=== PATIENT | female | born 1930 | race Two or more races ===

== ENCOUNTER 2016-06-19 13:20 | Inpatient (IN) | payer OTHER ==
[2016-06-19 13:33] VITALS: BMI 32.4
[2016-06-19] MEDS ORDERED: DOPamine 400mg/250ml D5W 250 ML IV ONE (13:36)
--- NOTE | 2016-06-19 13:48 | ED PDOC ---
Arrival/HPI - General Time Seen by Provider: 06/19/16 13:45 Historian: EMS - History of Present Illness Narrative History of Present Illness (Text): 06/19/16 13:45 85 year old female with a past medical history that includes diabetes and hypertension presents to the emergency department via BLS and ALS unresponsive prior to arrival. EMS reports they were originally called for shortness of breath but when they arrived the patient was unresponsive. Prior to arriving in the ED, EMS reports frothy sputum was noted at the mouth and they intubated the patient. Outside the ED in the parking lot, patient went into cardiac arrest and CPR was started. ACLS protocol was continued on arrival. Time/Duration: Prior to Arrival Symptom Onset: Sudden Symptom Course: Worsening Associated Symptoms (Text): None Past Medical History - Provider Review Nursing Documentation Reviewed: Yes - Cardiac Hx Hypertension: Yes - Endocrine/Metabolic Hx Diabetes Mellitus Type 2: Yes - Psychiatric Hx Substance Use: No - Surgical History Hx Cardiac Catheterization: Yes Family/Social History - Physician Review Nursing Documentation Reviewed: Yes Family/Social History: Unknown Family HX Smoking Status: Former Smoker Hx Alcohol Use: No Hx Substance Use: No Allergies/Home Meds Allergies/Adverse Reactions: Allergies No Known Allergies Allergy (Verified 05/31/16 12:55) Home Medications: Home Meds Medication Instructions Recorded Confirmed Carvedilol [Coreg] 25 mg PO Q12 05/31/16 06/19/16 GlipiZIDE [Glucotrol] 10 mg PO Q12 05/31/16 06/19/16 MetFORMIN [glucoPHAGE] 1,000 mg PO Q12 05/31/16 06/19/16 SITagliptin [Januvia] 50 mg PO DAILY 05/31/16 06/19/16 Review of Systems - Review of Systems Systems not reviewed;Unavailable: Intubated Physical Exam - Physical Exam Narrative Physical Exam (Text): Physical exam performed after ROSC Vital Signs Temp Pulse Pulse Resp BP Pulse Ox 06/19/16 14:42 76 16 106/44 L 98 06/19/16 14:29 85 16 88/51 L 99 06/19/16 14:19 99.4 F 06/19/16 14:15 84 16 85/47 L 99 06/19/16 14:00 84 16 87/55 L 99 06/19/16 13:45 84 16 118/78 06/19/16 13:40 76 16 179/80 H 98 06/19/16 13:34 92 H 16 225/92 H 99 06/19/16 13:20 0 L - Systems Exam Head: Present: Atraumatic, Normocephalic Conjunctiva: Present: Normal Mouth: Present: Other (Sputum noted from ET tube) Respiratory/Chest: Present: Rales (Diffuse rales bilaterally) Cardiovascular: Present: Regular Rate and Rhythm, Normal S1, S2. No: Murmurs Abdomen: Present: Other (Decreased bowel sounds). No: Tenderness, Distention, Normal Bowel Sounds Upper Extremity: Present: Cyanosis (Peripheral cyanosis in all 4 extremities) Lower Extremity: Present: Cyanosis (Peripheral cyanosis in all 4 extremities) Skin: Present: Warm, Dry. No: Rashes Medical Decision Making ED Course and Treatment: Impression: 85 year old female with a past medical history that includes diabetes and hypertension presents to the emergency department by BLS and ALS unresponsive prior to arrival. Patient seen immediately on arrival. Differential Diagnosis included but are not limited to: CHF vs COPD Plan: -- EKG, Chest X-ray -- Labs -- Reassess and disposition Prior Visits: Notes and results from previous visits were reviewed. Patient's previous note shows history of diabetes, hypertension, and former smoker. Previous note states patient's family moved from [place] approximately 2 months ago. Patient last seen in the ED on 05/31/15 for flu symptoms, diagnosed with COPD exacerbation, and discharged home with Prednisone and Zofran. Progress Notes: After 2 rounds of Epi with mechanical ventilation, pulses returned and ROSC obtained. Dopamine and Levophed drips were titrated. ET tube was found to be in the right mainstem bronchus on initial chest x-ray. ET tube repositioned. Follow up chest x-ray pending. 12 Lead EKG was done which showed sinus rhythm at 100 BPM and questionable elevations in I and AVL; ST depressions noted in III and AVF, interpreted by me. 06/19/16 13:45 Case discussed with cardiac interventionalist [facility] principal solution specialist Dr. Madison. Discussed findings and he does not recommend immediate cardiac catheterization at this time. 06/19/16 13:54 Case discussed with salesperson meats who states the patient will be taken to the ICU. Pt will get CT of the brain en route to ICU as per salesperson meats. Patient's family is in the ED and aware of patient's condition in the ED. 06/19/16 15:[address] Longoria - Critical Care Critical Care Minutes: 60 minutes - Lab Interpretations Lab Results: 06/19/16 13:30 06/19/16 13:30 Lab Results 06/19/16 14:25: pCO2 44, pO2 45.0 L, HCO3 13.7 L, ABG pH 7.10 L*, ABG Total CO2 15.1 L, ABG O2 Saturation 72.8 L, ABG Base Excess -15.6 L, ABG Potassium 4.5, Sodium 138.0, Chloride 115.0 H, Glucose 405 H*, Lactate 6.9 H*, Mechanical Rate 20, FiO2 100.0, Tidal Volume 400, PEEP 5, Arterial Blood Potassium 4.5 06/19/16 14:16: Urine Color Yellow, Urine Appearance Clear, Urine pH 7.0, Ur Specific [place] 1.025, Urine Protein >=300 H, Urine Glucose (UA) >=1000, Urine Ketones Negative, Urine Blood Small H, Urine Nitrate Negative, Urine Bilirubin Negative, Urine Urobilinogen 0.2, Ur Leukocyte Esterase Negative, Urine RBC 2 - 5, Urine WBC 0 - 2, Ur Epithelial Cells 1 - 3, Amorphous Sediment Small, Urine Bacteria Large 06/19/16 13:30: WBC 23.4 H D, RBC 4.40, Hgb 13.1, Hct 41.1, MCV 93.4, MCH 29.8, MCHC 31.9, RDW 13.7, Plt Count 275, MPV 11.9 H, Gran % 59.4, Lymph % (Auto) 33.3 , [place] % (Auto) 6.1 H, Eos % (Auto) 0.9 L, Baso % (Auto) 0.3, Gran # 13.88 H, Lymph # 7.8 H, [place] # 1.4 H, Eos # 0.2, Baso # 0.06, PT 11.6, INR 1.07, APTT 28.1, pO2 47, VBG pH 6.99 L*, VBG pCO2 79.0 H*, VBG HCO3 19.0 L, VBG Total CO2 21.4 L, VBG O2 Sat (Calc) 69.8 H, VBG Base Excess -13.7 L, VBG Potassium 5.0, Sodium 138.0, Chloride 103.0, Glucose 447 H*, Lactate 8.0 H*, FiO2 21.0, Potassium 5.5 H, Carbon Dioxide 22, Anion Gap 19, BUN 15, Creatinine 1.0, Est GFR ( Amer) > 60, Est GFR (Non-Af Amer) 53, Random Glucose 369 H* D, Calcium 9.2, Phosphorus 6.2 H, Magnesium 1.8, Total Bilirubin 0.7, AST 47 H, ALT 16, Alkaline Phosphatase 107, Lactate Dehydrogenase 655, Total Creatine Kinase 47, Troponin I 0.83 H*, NT-Pro-B Natriuret Pep 4190 H, Total Protein 7.3 , Albumin 3.5, Globulin 3.8, Albumin/Globulin Ratio 0.9 L, Venous Blood Potassium 5.0 - RAD Interpretation Radiology Orders: 06/19/16 13:48 CHEST PORTABLE [RAD] Stat - EKG Interpretation Interpreted by ED Physician: Yes Type: 12 lead EKG - Medication Orders Current Medication Orders: Aspirin (Aspirin) 325 mg PO DAILY MICHAEL Atorvastatin Calcium (Lipitor) 20 mg PO DIN MICHAEL Clopidogrel Bisulfate (Plavix) 75 mg PO DAILY [facility] Norepinephrine Bitartrate 4 mg (/ Dextrose) 254 mls @ 15.24 mls/hr IV .[id number] PRN; Protocol; 4 MCG/MIN PRN Reason: TITRATE PER MD ORDER Vancomycin HCl (Vancomycin 1gm) 250 mls @ 167 mls/hr IVPB STAT STA PRN Reason: Protocol Stop: 06/19/16 16:29 Piperacillin Sod/Tazobactam Sod (Zosyn 3.375 In Ns 100ml) 100 mls @ 200 mls/hr IVPB Q6 MICHAEL PRN Reason: Protocol Stop: 06/20/16 00:29 Vancomycin HCl (Vancomycin 1gm) 250 mls @ 167 mls/hr IVPB Q12 MICHAEL PRN Reason: Protocol Dexmedetomidine HCl (Precedex 4 Mcg/Ml (100 Ml)) 100 mls @ 4.15 mls/hr IV .Q24H PRN; Protocol; 0.2 MCG/KG/HR PRN Reason: Agitation Heparin Sodium/Sodium Chloride (Heparin 45857 Units/250ml 1/2 Normal Saline) 250 mls @ 9.961 mls/hr IV .Q24H MICHAEL; 12 UNITS/KG/HR PRN Reason: Protocol Sodium Bicarbonate (Sodium Bicarbonate (8.4%) 50 Meq Syringe) 50 meq IVP Q5MIN MICHAEL Stop: 06/20/16 15:16 Discontinued Medications Clopidogrel Bisulfate (Plavix) 300 mg PO STAT STA Stop: 06/19/16 15:51 Dopamine HCl/Dextrose (Dopamine 400mg/250ml D5w) Confirm Administered Dose 250 mls @ ud IV .STK-MED ONE Stop: 06/19/16 13:37 Piperacillin Sod/Tazobactam Sod (Zosyn 3.375 In Ns 100ml) 100 mls @ 200 mls/hr IVPB STAT STA PRN Reason: Protocol Stop: 06/19/16 15:31 Sodium Chloride (Sodium Chloride 0.9%) 1,000 mls @ 999 mls/hr IV .Q1H1M STA Stop: 06/19/16 16:07 Norepinephrine Bitartrate (Levophed) Confirm Administered Dose 4 mg IV .STK-MED ONE Stop: 06/19/16 14:22 - Scribe Statement The provider has reviewed the documentation as recorded by the Chelita Ramírez Provider Scribe Attestation: All medical record entries made by the Chelita were at my direction and personally dictated by me. I have reviewed the chart and agree that the record accurately reflects my personal performance of the history, physical exam, medical decision making, and the department course for this patient. I have also personally directed, reviewed, and agree with the discharge instructions and disposition. Disposition/Present on Arrival - Present on Arrival Any Indicators Present on Arrival: No History of DVT/PE: No History of Uncontrolled Diabetes: No Urinary Catheter: No History Surgical Site Infection Following: None - Disposition Have Diagnosis and Disposition been Completed?: Yes Diagnosis: Cardiopulmonary arrest with successful resuscitation, Congestive heart failure Disposition: HOSPITALIZED Disposition Time: 14:30 Patient Plan: Admission, ICU Condition: CRITICAL
[2016-06-19] MEDS ORDERED: DOPamine 400mg/250ml D5W 250 ML IV PRN (14:15)
[2016-06-19 14:19] LABS: ADD MANUAL DIFF? NO
[2016-06-19 14:22] LABS: VENOUS BLOOD GAS BASE EXCESS -13.7 mmol/L (0.0-2.0); VENOUS BLOOD PH 6.99 (7.32-7.43)
[2016-06-19 14:23] LABS: BASO # 0.06 K/mm3 (0.0-2.0); BASO % 0.3 % (0.0-3.0); EOS # 0.2 (0.0-0.7); EOS % 0.9 % (1.5-5.0); GRAN # 13.88 (1.4-6.5); GRAN % 59.4 % (50.0-68.0); HEMATOCRIT 41.1 % (36.0-48.0); LYMPH # 7.8 (1.2-3.4); LYMPH % 33.3 % (22.0-35.0); MEAN CELL VOLUME 93.4 fL (80.0-105.0); MEAN CORPUSCULAR HEMOGLOBIN 29.8 pg (25.0-35.0); MEAN CORPUSCULAR HGB CONC 31.9 g/dl (31.0-37.0); MEAN PLATELET VOLUME 11.9 fl (7.0-11.0); MONO # 1.4 (0.1-0.6); MONO % 6.1 % (1.0-6.0); PLATELET COUNT 275 10^3/uL (120.0-450.0); RED CELL DISTRIBUTION WIDTH 13.7 % (11.5-14.5); WHITE BLOOD COUNT 23.4 10^3/ul (4.5-11.0)
--- NOTE | 2016-06-19 14:27 | RAD ---
HISTORY: intubated COMPARISON: Chest x-ray performed 05/31/16 TECHNIQUE: Chest, one view. FINDINGS: Endotracheal tube terminates within the right mainstem bronchus and should be withdrawn approximately 8 cm. LUNGS: Extensive interstitial prominence predominantly within the upper lobes may reflect edema or infection. Please note that chest x-ray has limited sensitivity for the detection of pulmonary masses. PLEURA: No significant pleural effusion identified. No definite pneumothorax . CARDIOVASCULAR: Mild cardiomegaly. OSSEOUS STRUCTURES: Degenerative changes. Osseous demineralization. VISUALIZED UPPER ABDOMEN: Unremarkable. OTHER FINDINGS: External artifact projects over the right upper lobe. Cardiac monitoring leads present. IMPRESSION: Endotracheal tube terminates within the right mainstem bronchus and should be withdrawn approximately 7 cm. Extensive interstitial prominence predominantly within the upper lobes may reflect edema or infection. Mild cardiomegaly. Findings discussed with Dr. Jones on 06/19/16 at 2:25 p.m.
[2016-06-19 14:29] LABS: URINE BILIRUBIN NEGATIVE (NEGATIVE); URINE BLOOD SMALL (NEGATIVE); URINE GLUCOSE (UA) >=1000 mg/dL (NEGATIVE); URINE KETONE NEGATIVE (NEGATIVE); URINE LEUKOCYTE ESTERASE NEGATIVE Leu/uL (NEGATIVE); URINE PROTEIN >=300 mg/dL (<30 mg/dL); URINE UROBILINOGEN 0.2 E.U./dL (<1 E.U./dL)
[2016-06-19 14:30] LABS: ABG MECHANICAL RATE 20; ARTERIAL BLOOD GAS HCO3 13.7 mmol/L (21-28); ATERIAL BLOOD GAS PEEP 5
[2016-06-19 14:35] LABS: ALB/GLOB RATIO 0.9 (1.1-1.8); ALKALINE PHOSPHATASE 107 U/L (38-133); ALT/SGPT 16 U/L (7-56); AST/SGOT 47 U/L (15-39); BILIRUBIN,TOTAL 0.7 mg/dL (0.2-1.3); BLOOD UREA NITROGEN 15 mg/dL (7-21); CALCIUM 9.2 mg/dL (8.4-10.5); CARBON DIOXIDE 22 mmol/L (21-33); CHLORIDE 100 mmol/L (98-107); GFR AFRICAN-AMERICAN > 60; MAGNESIUM 1.8 mg/dL (1.7-2.2); PHOSPHOROUS 6.2 mg/dL (2.5-4.5); POTASSIUM 5.5 mmol/L (3.6-5.0); SODIUM 135 mmol/L (132-148); TOTAL PROTEIN 7.3 g/dL (5.8-8.3)
[2016-06-19 14:43] LABS: GLUCOSE,RANDOM 369 mg/dL (70-110)
[2016-06-19 14:47] LABS: URINE APPEARANCE CLEAR (CLEAR); URINE COLOR YELLOW (YELLOW)
[2016-06-19 14:50] LABS: INR 1.07 (0.93-1.08); PARTIAL THROMBOPLASTIN TIME 28.1 Seconds (23.7-30.8); TROPONIN I 0.83 ng/mL
[2016-06-19 14:50] LABS: URINE AMORPHOUS SEDIMENT SMALL; URINE BACTERIA LARGE (NEG); URINE WBC 0 - 2 /hpf (0-6)
[2016-06-19] MEDS ORDERED: Vancomycin 1gm in NS 250ml 250 ML IVPB STA (15:00)
[2016-06-19] MEDS ORDERED: Piperacillin/Tazobact 3.375 gm 100 ML IVPB STA (15:02)
[2016-06-19] MEDS ORDERED: Sodium Chloride 0.9% 1,000 ML IV STA (15:07)
[2016-06-19] MEDS ORDERED: Sodium Bicarbonate (8.4%) 50 Meq Syringe IVP SCH (15:15)
--- NOTE | 2016-06-19 15:26 | CT ---
PROCEDURE: CT HEAD WITHOUT CONTRAST. HISTORY: AMS COMPARISON: None available. TECHNIQUE: Axial computed tomography images were obtained through the head/brain without intravenous contrast. Radiation dose: Total exam DLP = 677.45 MGy-cm. FINDINGS: Extensive streak and motion artifact severely degrades study. HEMORRHAGE: No obvious intracranial hemorrhage. BRAIN: Diffuse atrophy with prominence of the ventricles and sulci noted. No mass effect or edema. Moderate scattered periventricular and subcortical white matter hypodensities, which are nonspecific, but often seen with chronic microvascular ischemic disease. VENTRICLES: No hydrocephalus. CALVARIUM: Unremarkable. PARANASAL SINUSES: Opacification of the maxillary sinuses. Mucosal thickening of the ethmoid air cells. Extensive opacification of the right sphenoid sinus. Mild mucosal thickening of the left sphenoid sinus. MASTOID AIR CELLS: Unremarkable as visualized. No inflammatory changes. OTHER FINDINGS: None. IMPRESSION: Extensive streak and motion artifact severely degrades study. Recommend repeat study when clinically feasible. Generalized atrophy. Moderate nonspecific white matter changes. Opacification of the maxillary sinuses. Mucosal thickening of the ethmoid air cells. Extensive opacification of the right sphenoid sinus. Mild mucosal thickening of the left sphenoid sinus. Correlate for sinusitis. Discussed with JONATHON Kamara on 06/19/16 at 3:23 p.m..
--- NOTE | 2016-06-19 15:53 | CP.PCM.HP ---
History of Present Illness - History of Present Illness History of Present Illness: HPI: Pt is an 85 year old female with a PMHx of diabetes and HTN who presented to the ED via EMS unresponsive and intubated. As per ED physician, EMS was called for shortness of breath. Pt was unresponsive upon EMS arrival, and pt went into cardiac arrest shortly after in the field. According to ICU resident, pt has had bronchitis over the past week and was being treated with azithromycin. According to the family who was previously at bedside, pt had a seizure prior to EMS being called. When EMS arrived, pt had frothy sputum coming from the mouth. Detailed history and ROS unattainable due to pt's clinical condition. PMD: Dr. Wheeler PMHx: HTN, Diabetes (as per ED note) Home medications: Metformin, glipizide, coreg, januvia (as per MAR) Allergies: NKDA (as per previous note) Past Surgical Hx: unable to be obtain Social Hx: former smoker (as per previous note) Fam Hx: unable to be obtained Present on Admission - Present on Admission Any Indicators Present on Admission: No Review of Systems - Review of Systems Systems not reviewed;Unavailable: Intubated Past Patient History - Past Social History Smoking Status: Former Smoker - CARDIAC Hx Hypertension: Yes - ENDOCRINE/METABOLIC Hx Diabetes Mellitus Type 2: Yes - PSYCHIATRIC Hx Substance Use: No - SURGICAL HISTORY Hx Cardiac Catheterization: Yes - ANESTHESIA Hx Anesthesia: Yes Hx Anesthesia Reactions: No Hx Malignant Hyperthermia: No Meds Allergies/Adverse Reactions: Allergies Allergy/AdvReac Type Severity Reaction Status Date / Time No Known Allergies Allergy Verified 05/31/16 12:55 Physical Exam - Constitutional Appears: Toxic - Head Exam Head Exam: ATRAUMATIC, NORMOCEPHALIC - Eye Exam Eye Exam: absent: EOMI Pupil Exam: Miosis - ENT Exam ENT Exam: Mucous Membranes Dry. absent: Mucous Membranes Moist - Respiratory Exam Respiratory Exam: Decreased Breath Sounds. absent: Rales, Rhonchi, Wheezes - Cardiovascular Exam Cardiovascular Exam: +S1, +S2 Additional comments: distant heart sounds - GI/Abdominal Exam GI & Abdominal Exam: Soft - Extremities Exam Extremities exam: Positive for: pedal edema Additional comments: Trace pedal edema - Skin Skin Exam: Normal Color Results - Vital Signs Recent Vital Signs: Last Vital Signs Temp 99.4 F 06/19/16 14:19 Pulse 76 06/19/16 14:42 Resp 16 06/19/16 14:42 BP 106/44 L 06/19/16 14:42 Pulse Ox 98 06/19/16 14:42 - Labs Result Diagrams: 06/19/16 13:30 06/19/16 13:30 Assessment & Plan - Assessment and Plan (Free Text) Assessment: Hypoxemic Respiratory Failure with metabolic acidosis s/p cardiac arrest: Initial ABG: PH: 7.10; Lactate 6.9, P02 - 45, Bicarb 13.7 Precedex Sedation Intubated NaHCO3 50 meq IVP q5 min Norepinephrine drip CXR-extensive interstitial prominence predominantly within the upper lobes reflects edema or infection (please see full report) Lower extremity venous duplex-negative for DVTs Pancultures pending Repeat ABGs Sepsis: Lactate 6.9 T - 97.5 WBC - 23.4 Pancultures pending CXR-extensive interstitial prominence predominantly within the upper lobes reflects edema or infection (please see full report) Zosyn 3.375 gm IV q8h Vanomycin 1 gm IV q12h NSTEMI: EKG - inferolateral ST depressions (please see full report) Troponin x 1 - 0.83 Pro-BNP -4190 Serial troponins pending Pmo Analyst, Dr. Gibson, consulted. Help appreciated. Heparin drip Head CT - generalized atrophy; nonspecific white matter changes; limited study ( please see full report_ Neurologist, Dr. Shania Guerra consulted. Help appreciated. Aspirin 81 mg po qd Plavix 75 mg po qd Prophylactic Measures: GI: Protonix 40 mg IV qd DVT: Heparin drip
--- NOTE | 2016-06-19 16:07 | RAD ---
HISTORY: ett COMPARISON: Chest x-ray performed earlier the same day. TECHNIQUE: Chest, one view. FINDINGS: The endotracheal tube terminates approximately 2.5 cm above the jake. LUNGS: Prominent interstitial markings predominantly within the upper lobes compatible with edema or infection. More confluent opacity noted at the right lung apex. Please note that chest x-ray has limited sensitivity for the detection of pulmonary masses. PLEURA: No significant pleural effusion identified. No definite pneumothorax . CARDIOVASCULAR: Heart size appears top normal. OSSEOUS STRUCTURES: No acute osseous abnormality identified. VISUALIZED UPPER ABDOMEN: Unremarkable. OTHER FINDINGS: None. IMPRESSION: Endotracheal tube terminates approximately 2.5 cm above the jake. Prominent interstitial markings predominantly within the upper lobes compatible with edema or infection. More confluent opacity noted at the right lung apex.
[2016-06-19] MEDS: Dexmedetomidine HCl 4mcg/ml 100 ML IV PRN ×2 (16:10→21:49)
--- NOTE | 2016-06-19 16:14 | RAD ---
HISTORY: NGT COMPARISON: Chest x-rays performed earlier the same day. TECHNIQUE: Chest, one view. FINDINGS: The endotracheal tube terminates approximately 2.6 cm above the jake. Nasogastric tube extends expected location of the stomach. LUNGS: Prominent interstitial markings predominantly within the upper lobes compatible with edema or infection. Biapical pleural thickening. Please note that chest x-ray has limited sensitivity for the detection of pulmonary masses. PLEURA: Trace bilateral pleural effusions. No definite pneumothorax . CARDIOVASCULAR: The cardiomediastinal silhouette appears within normal limits of size. OSSEOUS STRUCTURES: No acute osseous abnormality identified. VISUALIZED UPPER ABDOMEN: Unremarkable. OTHER FINDINGS: None. IMPRESSION: The endotracheal tube terminates approximately 2.6 cm above the jake. Nasogastric tube extends expected location of the stomach. Prominent interstitial markings predominantly within the upper lobes compatible with edema or infection. Biapical pleural thickening. Trace bilateral pleural effusions.
[2016-06-19] MEDS: Heparin25000 units/250ml 1/2NS 250 ML IV SCH (16:22)
[2016-06-19 16:57] LABS: ABG MECHANICAL RATE 28; ARTERIAL BLOOD GAS HCO3 20.6 mmol/L (21-28); ARTERIAL BLOOD GAS PH 7.31 (7.35-7.45); ATERIAL BLOOD GAS PEEP 5
[2016-06-19] MEDS ORDERED: levETIRAcetam 1,000 MG in Sodium Chloride 0.9% 100 ML IV ONE (17:07)
[2016-06-19] MEDS: Piperacillin/Tazobact 3.375 gm 100 ML IVPB SCH (17:11)
--- NOTE | 2016-06-19 17:19 | CON ---
DATE: 06/19/2016 The patient is an 85-year-old female who was brought in by EMS after the patient's family found her s uddenly having shortness of breath that caused her to clench over, start frothing at her mouth and serge bah witnessed seizures x 2. EMS was called. Upon arrival, the patient was seen to be unresponsive, bu t a pulse was present. The patient at the time was taken to the ambulance and upon arrival to the [facility], the patient had loss of pulse and was emergently intubated and chest compressions were started. In the Emergency Room, the patient had chest compressions, 2 rounds of epinephrine and returned to [facility] with roughly 20 minutes in total time outside hospital and inside. Upon seeing the patient in the Emergency Room, she is seen to be intubated on 100%, hypotensive, but is overbreathin g the ventilator and does have some movement of all her extremities. PAST MEDICAL HISTORY: Diabetes, recent bronchitis, high blood pressure. PAST SURGICAL HISTORY: Amputation of the toe, CAD with stent in the past. SOCIAL HISTORY: Nonsmoker, no alcohol, no IV drug abuse. Previous smoker over 55 years ago. FAMILY HISTORY: Diabetes, high blood pressure. PHYSICAL EXAMINATION: VITAL SIGNS: Temp 98.8, heart rate 76, blood pressure 106/44, respiratory rate is 16-24, 98% on 100% FiO2. HEENT: The pupils are +2 bilaterally. Extraocular eye movements cannot be assessed. NECK: Large, ET tube size [address] No JVD. LUNGS: Have scattered rhonchi, decreased breath sounds in bilateral bases. CARDIOVASCULAR: S1, S2 is heard without any heaves, murmurs, or thrills. ABDOMEN: Obese, soft, tender without any rebound or guarding. EXTREMITIES: Show no pedal edema. SKIN: Shows no rashes. NEUROLOGIC: The patient is currently not following any commands, having purposeless movements. LABORATORY RESULTS: White blood cell count 23.4, hemoglobin of 13, platelet count of 275. Sodium 13 5, potassium 5.5, chloride 100, bicarb 22, BUN 15, creatinine is 1, glucose 369. Troponin is 0.83. ProBNP 4190. Arterial blood gas shows a pH of 7.10, pO2 of 45, bicarb of 13.7. Urinalysis is negati ve. INR 1.07. Chest x-ray, images reviewed by me, does show the ET tube in the right mainstem, needs to be drawn ba ck 4-[address], images reviewed by me, does not show any overt signs of intracerebral hemorrhage. Awaiting for final read. ASSESSMENT AND PLAN: The patient is an 85-year-old female who presents status post cardiac arrest, m etabolic acidosis, hyperglycemia, leukocytosis. At this time, it is unclear if the patient's arrest was secondary to pulmonary or cardiac complaints. The patient did have a pH below 7 prior to arrival and intubation, for which the patient could have suffered seizures from metabolic causes. Two witnessed seizures were seen at home that have subside d since coming in here. At this time, the patient is currently not seizing and the pH has improved. We will get a neurology consult and the patient also can be started on empiric Keppra for seizure pr ophylaxis. Vent-dependent respiratory failure. At this time, the patient is intubated. Right mainstem intubati on was seen on chest x-ray. The tube has been drawn back 4 cm. Repeat x-ray is pending. Repeat blo od gas to be done in the hopes that the patient's pO2 is greater than 60. We will appropriately adju st FiO2. Low tidal volume strategy, [employer] protocol. Leukocytosis 23,000, unknown cause. The chest x-ray does show bilateral infiltrates suggestive for p ulmonary edema, but cannot rule out infiltrate as well. Sputum culture, urine culture, blood culture s were sent. The patient will be empirically started on vancomycin and Zosyn, first dose now. The patient is noted to have EKG changes, questionable for lateral lead ischemia in the setting of re cent chest compressions. Cardiology has been consulted. The patient, if nothing else is found, can be started on a possible heparin drip. Also be started on aspirin, Plavix, beta blockers once stabil ized from blood pressure. The patient is also seen to be in shock right now, presumed cardiogenic sh ock, but cannot rule out distributive septic shock at this time. We will titrate the Levophed to mya p the patient's mean arterial pressure greater than 65. The patient will also be started on normal s marilyn IV fluid to help load her right heart and we will follow the inferior vena cava collapsibility. All electrolytes to be repleted. At this time, the patient should be kept normothermic or hypothermia protocol unless the patient does have some discernible improvement in her mental status when she arrives to the ICU after the head CT is done. That to be determined. The patient will most likely need an EEG in the next 24-48 hours, neurology consult, cardiology consu lt, 2D echo to be done stat, troponins to be trended. TOTAL CRITICAL CARE TIME: 72 minutes. Asiya Guerra M.D. cc: [id number] TT: 06/19/2016 17:18:14 Confirmation # [id number] Dictation # [id number]
[2016-06-19 18:19] LABS: VENOUS BLOOD PH 7.29 (7.32-7.43)
--- NOTE | 2016-06-19 19:57 | CON ---
DATE: 06/19/2016 REASON FOR CONSULTATION: Cardiac arrest. HISTORY OF PRESENT ILLNESS: The patient is an 85-year-old female originally from [facility], who has a history of coronary artery disease, underwent coronary stenting many years ago. She arr ived from [place] in May to the [facility]. She has chronic obstructive lung disease and uses nebulizer therapy at home. The patient was noticed by the family to be short of breath. When they attempted to get her nebulizer therapy, the granddaughter noticed a yellowish foam around her mo uth and EMS was activated. The patient was brought to the Emergency Room and the patient developed r espiratory arrest and required intubation and mechanical ventilation. Also, the patient was in circu latory failure and required multiple doses of intravenous epinephrine infusion. No defibrillation wa s given. The first EKG was consistent with sinus rhythm and a subtle lateral ST elevation; however, after interventional cardiology evaluation, the patient was not considered a candidate for acute inte rvention. Subsequent EKG revealed junctional rhythm with significant lateral ST segment depression. There was no obtainable chest pain history from the family. SOCIAL HISTORY: The patient is a nonsmoker. CURRENT MEDICATIONS: Intravenous heparin infusion in a therapeutic regimen for acute coronary syndro me, aspirin 325 mg once a day, Keppra 500 mg intravenously q.12 hours, Levophed infusion, Plavix 75 m g once a day, sodium bicarbonate infusion, vancomycin 1 gram intravenous twice a day and Zosyn 3.375 grams intravenously q.6 hours. PHYSICAL EXAMINATION: GENERAL: The patient is an elderly female who is sedated on the ventilator. VITAL SIGNS: Blood pressure 109/31, heart rate 61, temperature 97.7, respiration 33. HEENT: Normocephalic. NECK: No JVD. CHEST: Bilateral coarse crepitations. HEART: S1, S2 regular. ABDOMEN: Soft. EXTREMITIES: Has 1+ right leg edema. LABORATORY DATA: CBC: WBC 23.4, hemoglobin 13.1, hematocrit 41.1, platelet count 275,000. SMA-7: Sodium 135, potassium 5.5, chloride 100, CO2 of 22, glucose 369, BUN 15, creatinine 1.0. Troponin 0. 83. ProBNP is 4190. PT and PTT are within normal limits. Head CT scan revealed extensive streak an d motion artifact, severely degraded study. Recommended repeat study when clinically feasible. Gene ralized atrophy and moderate nonspecific white matter changes. Chest x-ray revealed right upper and middle lobe infiltrate with left lower lobe infiltrate, CHF cannot be completely excluded. Venous Do ppler of lower extremity was performed, but the report is still pending. ASSESSMENT: 1. Status post cardiorespiratory arrest. 2. Lateral ischemia, consider non-ST elevation myocardial infarction. 3. Rule out bilateral pneumonia. 4. Chronic obstructive lung disease. 5. Uncontrolled diabetes mellitus. 6. Hypotension on presentation. RECOMMENDATIONS: The case was discussed with the rn residential, Dr. Guerra. The patient will be maintai jennifer on aspirin and intravenous heparin in a therapeutic regimen for acute coronary syndrome. Restart Lipitor at 20 mg once a day and Plavix 75 mg once a day as well as intravenous vancomycin and intrav enous Zosyn. I will obtain a bedside echocardiograph study. Ric Gibson MD cc: [id number] TT: 06/19/2016 19:56:01 Confirmation # [id number] Dictation # [id number]
[2016-06-19] MEDS: levETIRAcetam 500mg IVPB 100 ML IV SCH (21:20)
[2016-06-19 21:48] LABS: VENOUS BLOOD GAS BASE EXCESS -4.2 mmol/L (0.0-2.0); VENOUS BLOOD PH 7.29 (7.32-7.43)
[2016-06-19] MEDS: Vancomycin 1gm in NS 250ml 250 ML IVPB SCH (21:50)
[2016-06-19] MEDS ORDERED: Sodium Bicarbonate (8.4%) 50 Meq Syringe IVP ONE (22:01)
[2016-06-19] MEDS ORDERED: Insulin Regular 1 UNITS/0.01 ML ML SC ONE (22:04)
[2016-06-20] MEDS: Piperacillin/Tazobact 3.375 gm 100 ML IVPB SCH (00:30)
[2016-06-20] MEDS: Dexmedetomidine HCl 4mcg/ml 100 ML IV PRN ×5 (02:16→21:19)
[2016-06-20 05:54] LABS: ADD MANUAL DIFF? NO
[2016-06-20 06:11] LABS: BASO # 0.02 K/mm3 (0.0-2.0); BASO % 0.1 % (0.0-3.0); GRAN # 15.61 (1.4-6.5); GRAN % 88.2 % (50.0-68.0); HEMATOCRIT 33.9 % (36.0-48.0); LYMPH # 1.2 (1.2-3.4); LYMPH % 6.7 % (22.0-35.0); MEAN CELL VOLUME 88.5 fL (80.0-105.0); MEAN CORPUSCULAR HEMOGLOBIN 29.5 pg (25.0-35.0); MEAN CORPUSCULAR HGB CONC 33.3 g/dl (31.0-37.0); MEAN PLATELET VOLUME 11.9 fl (7.0-11.0); MONO # 0.9 (0.1-0.6); PLATELET COUNT 183 10^3/uL (120.0-450.0); RED CELL DISTRIBUTION WIDTH 13.5 % (11.5-14.5); WHITE BLOOD COUNT 17.7 10^3/ul (4.5-11.0)
[2016-06-20 06:26] LABS: ALB/GLOB RATIO 0.9 (1.1-1.8); BILIRUBIN,TOTAL 0.9 mg/dL (0.2-1.3); CALCIUM 7.6 mg/dL (8.4-10.5); MAGNESIUM 1.3 mg/dL (1.7-2.2); PHOSPHOROUS 2.4 mg/dL (2.5-4.5); POTASSIUM 3.9 mmol/L (3.6-5.0); TOTAL PROTEIN 5.4 g/dL (5.8-8.3)
[2016-06-20] MEDS ORDERED: Insulin Lispro (humaLOG) LOW Coverage SC SCH (07:30)
[2016-06-20] MEDS: levETIRAcetam 500mg IVPB 100 ML IV SCH ×2 (09:39→21:35)
[2016-06-20] MEDS: Vancomycin 1gm in NS 250ml 250 ML IVPB SCH (09:42)
--- NOTE | 2016-06-20 09:46 | CARD ---
APPROVED REPORT EKG Measurement Heart [id number] <Conclusion> Normal sinus rhythm Nonspecific intraventricular block ST elevation, consider lateral injury or acute infarct ACUTE [place] STTW changes c/w ischemia IVCD and ST changes are new.
--- NOTE | 2016-06-20 09:47 | CARD ---
APPROVED REPORT EKG Measurement Heart [id number] <Conclusion> Probably AF, new IVCD STTW changes c/w ischemia Prolonged QTc
[2016-06-20 09:49] LABS: ABG MECHANICAL RATE 28; ARTERIAL BLOOD GAS HCO3 20.4 mmol/L (21-28); ARTERIAL BLOOD GAS PH 7.47 (7.35-7.45); ATERIAL BLOOD GAS PEEP 8
[2016-06-20] MEDS ORDERED: Cefepime IV 2 gm in NS 100 ML IVPB SCH (10:30)
--- NOTE | 2016-06-20 11:02 | CP.CCUPN ---
<AleksandarAnastacio - Last Filed: 06/20/16 11:13> CCU Subjective - Physician Review Subjective (Free Text): 06/20/16 11:37 Pt intubated and sedated. Off pressors. HR 30-70s. Precedex decreased. 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 Objective - Vital Signs / Intake & Output Vital Signs (Last 4 hours): Vital Signs Pulse 06/20/16 07:50 48 L Intake and Output (Last 8hrs): Intake & Output 06/19/16 06/20/16 06/20/16 22:59 06:59 14:59 Intake Total 1472 841 Output Total 1000 300 Balance 472 541 Weight 183 lb 186 lb 2 oz Intake: IV 391 Heparin 106 Precedex 210 Levophed 75 Other 1472 450 Output: Urine 1000 300 Urethral (Menezes) 1000 300 Other: Voiding Method Indwelling Catheter # Bowel Movements 0 0 - Physical Exam Head: Positive for: Atraumatic, Normocephalic Conjunctiva: Positive for: Normal Mouth: Positive for: Other ( ET tube) Respiratory/Chest: Positive for: Respiratory Distress, Rales (Diffuse rales bilaterally) Cardiovascular: Positive for: Regular Rate and Rhythm, Normal S1, S2. Negative for: Murmurs Abdomen: Negative for: Tenderness, Distention, Normal Bowel Sounds Skin: Positive for: Warm, Dry. Negative for: Rashes Psychiatric: Negative for: Alert, Oriented x 3 - Medications Active Medications: Active Medications Generic Name Dose Route Start Last Admin Trade Name Freq PRN Reason Stop Dose Admin Aspirin 325 mg 06/19/16 16:00 06/20/16 09:10 Aspirin PO 325 mg DAILY MICHAEL Administration Atorvastatin Calcium 20 mg 06/19/16 17:00 06/19/16 16:14 Lipitor PO 20 mg DIN MICHAEL Administration Clopidogrel Bisulfate 75 mg 06/20/16 10:00 06/20/16 09:00 Plavix PO 75 mg DAILY MICHAEL Administration Norepinephrine Bitartrate 4 mg 254 mls @ 15.24 mls/hr 06/19/16 14:15 06/19/16 20:30 / Dextrose IV 15.24 mls/hr .[id number] PRN Administration TITRATE PER MD ORDER Protocol 4 MCG/MIN Dexmedetomidine HCl 100 mls @ 4.15 mls/hr 06/19/16 15:08 06/20/16 09:56 Precedex 4 Mcg/Ml (100 Ml) IV 4.15 mls/hr .Q24H PRN Administration Agitation Protocol 0.2 MCG/KG/HR Heparin Sodium/Sodium Chloride 250 mls @ 9.961 mls/hr 06/19/16 15:45 06/20/16 05:45 Heparin 47716 Units/250ml 1/2 Normal Saline IV 9.63 units/kg/hr .Q24H MICHAEL Titration Protocol 12 UNITS/KG/HR Levetiracetam 100 mls @ 400 mls/hr 06/19/16 22:00 06/20/16 09:39 Keppra 500mg Ivpb IV 400 mls/hr Q12 MICHAEL Administration Cefepime HCl 100 mls @ 100 mls/hr 06/20/16 10:30 Maxipime 2gm IVPB 06/25/16 10:31 Q12 MICHAEL Protocol Doxycycline Hyclate 100 mg/ 100 mls @ 100 mls/hr 06/20/16 10:30 Sodium Chloride IVPB Q12 MICHAEL Protocol Insulin Human Regular 0 units 06/20/16 11:30 Humulin R Med SC ACHS MICHAEL Protocol Pantoprazole Sodium 40 mg 06/20/16 10:00 06/20/16 09:42 Protonix Inj IVP 40 mg DAILY MICHAEL Administration Sodium Bicarbonate 50 meq 06/19/16 15:15 06/19/16 16:09 Sodium Bicarbonate (8.4%) 50 Meq Syringe IVP 06/20/16 15:16 50 meq Q5MIN MICHAEL Administration - Patient Studies Lab Studies: Microbiology Studies 06/19/16 17:00 Gram Stain - Final Sputum Lab Studies 06/20/16 06/20/16 06/20/16 Range/Units 09:43 05:45 05:26 WBC 17.7 H D (4.5-11.0) 10^3/ul RBC 3.83 (3.5-6.1) 10^6/uL Hgb 11.3 L (12.0-16.0) gm/dL Hct 33.9 L (36.0-48.0) % MCV 88.5 (80.0-105.0) fL MCH 29.5 (25.0-35.0) pg MCHC 33.3 (31.0-37.0) g/dl RDW 13.5 (11.5-14.5) % Plt Count 183 (120.0-450.0) 10^3/uL MPV 11.9 H (7.0-11.0) fl Gran % 88.2 H (50.0-68.0) % Lymph % (Auto) 6.7 L (22.0-35.0) % [place] % (Auto) 5.0 (1.0-6.0) % Eos % (Auto) 0.0 L (1.5-5.0) % Baso % (Auto) 0.1 (0.0-3.0) % Gran # 15.61 H (1.4-6.5) Lymph # 1.2 (1.2-3.4) [place] # 0.9 H (0.1-0.6) Eos # 0.0 (0.0-0.7) Baso # 0.02 (0.0-2.0) K/mm3 APTT 88.5 H* (23.7-30.8) Seconds pCO2 28 L (35-45) mm/Hg pO2 66.0 L (80-100) mm/Hg HCO3 20.4 L (21-28) mmol/L ABG pH 7.47 H (7.35-7.45) ABG Total CO2 21.3 L (22-28) mmol.L ABG O2 Saturation 96.5 (95-98) % ABG Base Excess -2.0 (-2.0-3.0) mmol/L ABG Potassium 4.2 (3.6-5.2) mmol/L VBG pH (7.32-7.43) VBG pCO2 (40-60) VBG HCO3 (21-28) mmol/l VBG Total CO2 (22-28) mmol.L VBG O2 Sat (Calc) (40-65) % VBG Base Excess (0.0-2.0) mmol/L VBG Potassium (3.6-5.2) mmol/L Sodium 141.0 142 (132-148) mmol/L Chloride 115.0 H 107 (98-107) mmol/L Glucose 388 H (65-105) mg/dl Lactate 2.6 H (0.7-2.1) mmol/L Mechanical Rate 28 FiO2 100.0 % Tidal Volume 400 PEEP 8 Potassium 3.9 (3.6-5.0) mmol/L Carbon Dioxide 24 (21-33) mmol/L Anion Gap 15 (10-20) BUN 25 H (7-21) mg/dL Creatinine 1.4 (0.5-1.4) mg/dL Est GFR ( Amer) 43 Est GFR (Non-Af Amer) 36 POC Glucose (mg/dL) 423 H* (65-110) mg/dL Random Glucose 398 H* (70-110) mg/dL Calcium 7.6 L (8.4-10.5) mg/dL Phosphorus 2.4 L (2.5-4.5) mg/dL Magnesium 1.3 L (1.7-2.2) mg/dL Total Bilirubin 0.9 (0.2-1.3) mg/dL AST 365 H (15-39) U/L ALT 106 H (7-56) U/L Alkaline Phosphatase 108 (38-133) U/L Troponin I ng/mL Total Protein 5.4 L (5.8-8.3) g/dL Albumin 2.6 L (3.0-4.8) g/dL Globulin 2.8 gm/dL Albumin/Globulin Ratio 0.9 L (1.1-1.8) Arterial Blood Potassium 4.2 (3.6-5.2) mmol/L Venous Blood Potassium (3.6-5.2) mmol/L 06/20/16 06/19/16 06/19/16 Range/Units 01:30 23:56 22:00 WBC (4.5-11.0) 10^3/ul RBC (3.5-6.1) 10^6/uL Hgb (12.0-16.0) gm/dL Hct (36.0-48.0) % MCV (80.0-105.0) fL MCH (25.0-35.0) pg MCHC (31.0-37.0) g/dl RDW (11.5-14.5) % Plt Count (120.0-450.0) 10^3/uL MPV (7.0-11.0) fl Gran % (50.0-68.0) % Lymph % (Auto) (22.0-35.0) % [place] % (Auto) (1.0-6.0) % Eos % (Auto) (1.5-5.0) % Baso % (Auto) (0.0-3.0) % Gran # (1.4-6.5) Lymph # (1.2-3.4) [place] # (0.1-0.6) Eos # (0.0-0.7) Baso # (0.0-2.0) K/mm3 APTT 55.5 H (23.7-30.8) Seconds pCO2 (35-45) mm/Hg pO2 (80-100) mm/Hg HCO3 (21-28) mmol/L ABG pH (7.35-7.45) ABG Total CO2 (22-28) mmol.L ABG O2 Saturation (95-98) % ABG Base Excess (-2.0-3.0) mmol/L ABG Potassium (3.6-5.2) mmol/L VBG pH (7.32-7.43) VBG pCO2 (40-60) VBG HCO3 (21-28) mmol/l VBG Total CO2 (22-28) mmol.L VBG O2 Sat (Calc) (40-65) % VBG Base Excess (0.0-2.0) mmol/L VBG Potassium (3.6-5.2) mmol/L Sodium (132-148) mmol/L Chloride (98-107) mmol/L Glucose (65-105) mg/dl Lactate (0.7-2.1) mmol/L Mechanical Rate FiO2 % Tidal Volume PEEP Potassium (3.6-5.0) mmol/L Carbon Dioxide (21-33) mmol/L Anion Gap (10-20) BUN (7-21) mg/dL Creatinine (0.5-1.4) mg/dL Est GFR ( Amer) Est GFR (Non-Af Amer) POC Glucose (mg/dL) 354 H (65-110) mg/dL Random Glucose (70-110) mg/dL Calcium (8.4-10.5) mg/dL Phosphorus (2.5-4.5) mg/dL Magnesium (1.7-2.2) mg/dL Total Bilirubin (0.2-1.3) mg/dL AST (15-39) U/L ALT (7-56) U/L Alkaline Phosphatase (38-133) U/L Troponin I 47.10 H* D ng/mL Total Protein (5.8-8.3) g/dL Albumin (3.0-4.8) g/dL Globulin gm/dL Albumin/Globulin Ratio (1.1-1.8) Arterial Blood Potassium (3.6-5.2) mmol/L Venous Blood Potassium (3.6-5.2) mmol/L 06/19/16 06/19/16 06/19/16 Range/Units 21:30 18:00 17:35 WBC (4.5-11.0) 10^3/ul RBC (3.5-6.1) 10^6/uL Hgb (12.0-16.0) gm/dL Hct (36.0-48.0) % MCV (80.0-105.0) fL MCH (25.0-35.0) pg MCHC (31.0-37.0) g/dl RDW (11.5-14.5) % Plt Count (120.0-450.0) 10^3/uL MPV (7.0-11.0) fl Gran % (50.0-68.0) % Lymph % (Auto) (22.0-35.0) % [place] % (Auto) (1.0-6.0) % Eos % (Auto) (1.5-5.0) % Baso % (Auto) (0.0-3.0) % Gran # (1.4-6.5) Lymph # (1.2-3.4) [place] # (0.1-0.6) Eos # (0.0-0.7) Baso # (0.0-2.0) K/mm3 APTT (23.7-30.8) Seconds pCO2 (35-45) mm/Hg pO2 25 L 28 L (80-100) mm/Hg HCO3 (21-28) mmol/L ABG pH (7.35-7.45) ABG Total CO2 (22-28) mmol.L ABG O2 Saturation (95-98) % ABG Base Excess (-2.0-3.0) mmol/L ABG Potassium (3.6-5.2) mmol/L VBG pH 7.29 L 7.29 L (7.32-7.43) VBG pCO2 47.0 40.0 (40-60) VBG HCO3 22.6 19.2 L (21-28) mmol/l VBG Total CO2 24.0 20.4 L (22-28) mmol.L VBG O2 Sat (Calc) 44.5 53.6 (40-65) % VBG Base Excess -4.2 L -7.0 L (0.0-2.0) mmol/L VBG Potassium 4.6 4.0 (3.6-5.2) mmol/L Sodium 141.0 143.0 (132-148) mmol/L Chloride 107.0 114.0 H (98-107) mmol/L Glucose 443 H* 391 H (65-105) mg/dl Lactate 3.8 H 3.6 H (0.7-2.1) mmol/L Mechanical Rate FiO2 21.0 21.0 % Tidal Volume PEEP Potassium (3.6-5.0) mmol/L Carbon Dioxide (21-33) mmol/L Anion Gap (10-20) BUN (7-21) mg/dL Creatinine (0.5-1.4) mg/dL Est GFR ( Amer) Est GFR (Non-Af Amer) POC Glucose (mg/dL) (65-110) mg/dL Random Glucose (70-110) mg/dL Calcium (8.4-10.5) mg/dL Phosphorus (2.5-4.5) mg/dL Magnesium (1.7-2.2) mg/dL Total Bilirubin (0.2-1.3) mg/dL AST (15-39) U/L ALT (7-56) U/L Alkaline Phosphatase (38-133) U/L Troponin I 5.06 H* D ng/mL Total Protein (5.8-8.3) g/dL Albumin (3.0-4.8) g/dL Globulin gm/dL Albumin/Globulin Ratio (1.1-1.8) Arterial Blood Potassium (3.6-5.2) mmol/L Venous Blood Potassium 4.6 4.0 (3.6-5.2) mmol/L 06/19/16 Range/Units 16:50 WBC (4.5-11.0) 10^3/ul RBC (3.5-6.1) 10^6/uL Hgb (12.0-16.0) gm/dL Hct (36.0-48.0) % MCV (80.0-105.0) fL MCH (25.0-35.0) pg MCHC (31.0-37.0) g/dl RDW (11.5-14.5) % Plt Count (120.0-450.0) 10^3/uL MPV (7.0-11.0) fl Gran % (50.0-68.0) % Lymph % (Auto) (22.0-35.0) % [place] % (Auto) (1.0-6.0) % Eos % (Auto) (1.5-5.0) % Baso % (Auto) (0.0-3.0) % Gran # (1.4-6.5) Lymph # (1.2-3.4) [place] # (0.1-0.6) Eos # (0.0-0.7) Baso # (0.0-2.0) K/mm3 APTT (23.7-30.8) Seconds pCO2 41 (35-45) mm/Hg pO2 58.0 L (80-100) mm/Hg HCO3 20.6 L (21-28) mmol/L ABG pH 7.31 L (7.35-7.45) ABG Total CO2 21.9 L (22-28) mmol.L ABG O2 Saturation 91.3 L (95-98) % ABG Base Excess -5.4 L (-2.0-3.0) mmol/L ABG Potassium 4.2 (3.6-5.2) mmol/L VBG pH (7.32-7.43) VBG pCO2 (40-60) VBG HCO3 (21-28) mmol/l VBG Total CO2 (22-28) mmol.L VBG O2 Sat (Calc) (40-65) % VBG Base Excess (0.0-2.0) mmol/L VBG Potassium (3.6-5.2) mmol/L Sodium 141.0 (132-148) mmol/L Chloride 115.0 H (98-107) mmol/L Glucose 398 H (65-105) mg/dl Lactate 2.9 H (0.7-2.1) mmol/L Mechanical Rate 28 FiO2 100.0 % Tidal Volume 400 PEEP 5 Potassium (3.6-5.0) mmol/L Carbon Dioxide (21-33) mmol/L Anion Gap (10-20) BUN (7-21) mg/dL Creatinine (0.5-1.4) mg/dL Est GFR ( Amer) Est GFR (Non-Af Amer) POC Glucose (mg/dL) (65-110) mg/dL Random Glucose (70-110) mg/dL Calcium (8.4-10.5) mg/dL Phosphorus (2.5-4.5) mg/dL Magnesium (1.7-2.2) mg/dL Total Bilirubin (0.2-1.3) mg/dL AST (15-39) U/L ALT (7-56) U/L Alkaline Phosphatase (38-133) U/L Troponin I ng/mL Total Protein (5.8-8.3) g/dL Albumin (3.0-4.8) g/dL Globulin gm/dL Albumin/Globulin Ratio (1.1-1.8) Arterial Blood Potassium 4.2 (3.6-5.2) mmol/L Venous Blood Potassium (3.6-5.2) mmol/L Laboratory Results - last 24 hr 06/19/16 06/19/16 06/19/16 16:50 17:35 18:00 WBC RBC Hgb Hct MCV MCH MCHC RDW Plt Count MPV Gran % Lymph % (Auto) [place] % (Auto) Eos % (Auto) Baso % (Auto) Gran # Lymph # [place] # Eos # Baso # APTT pCO2 41 pO2 58.0 L 28 L HCO3 20.6 L ABG pH 7.31 L ABG Total CO2 21.9 L ABG O2 Saturation 91.3 L ABG Base Excess -5.4 L ABG Potassium 4.2 VBG pH 7.29 L VBG pCO2 40.0 VBG HCO3 19.2 L VBG Total CO2 20.4 L VBG O2 Sat (Calc) 53.6 VBG Base Excess -7.0 L VBG Potassium 4.0 Sodium 141.0 143.0 Chloride 115.0 H 114.0 H Glucose 398 H 391 H Lactate 2.9 H 3.6 H Mechanical Rate 28 FiO2 100.0 21.0 Tidal Volume 400 PEEP 5 Potassium Carbon Dioxide Anion Gap BUN Creatinine Est GFR ( Amer) Est GFR (Non-Af Amer) POC Glucose (mg/dL) Random Glucose Calcium Phosphorus Magnesium Total Bilirubin AST ALT Alkaline Phosphatase Troponin I 5.06 H* D Total Protein Albumin Globulin Albumin/Globulin Ratio Arterial Blood Potassium 4.2 Venous Blood Potassium 4.0 06/19/16 06/19/16 06/19/16 21:30 22:00 23:56 WBC RBC Hgb Hct MCV MCH MCHC RDW Plt Count MPV Gran % Lymph % (Auto) [place] % (Auto) Eos % (Auto) Baso % (Auto) Gran # Lymph # [place] # Eos # Baso # APTT 55.5 H pCO2 pO2 25 L HCO3 ABG pH ABG Total CO2 ABG O2 Saturation ABG Base Excess ABG Potassium VBG pH 7.29 L VBG pCO2 47.0 VBG HCO3 22.6 VBG Total CO2 24.0 VBG O2 Sat (Calc) 44.5 VBG Base Excess -4.2 L VBG Potassium 4.6 Sodium 141.0 Chloride 107.0 Glucose 443 H* Lactate 3.8 H Mechanical Rate FiO2 21.0 Tidal Volume PEEP Potassium Carbon Dioxide Anion Gap BUN Creatinine Est GFR ( Amer) Est GFR (Non-Af Amer) POC Glucose (mg/dL) 354 H Random Glucose Calcium Phosphorus Magnesium Total Bilirubin AST ALT Alkaline Phosphatase Troponin I Total Protein Albumin Globulin Albumin/Globulin Ratio Arterial Blood Potassium Venous Blood Potassium 4.6 06/20/16 06/20/16 06/20/16 01:30 05:26 05:45 WBC 17.7 H D RBC 3.83 Hgb 11.3 L Hct 33.9 L MCV 88.5 MCH 29.5 MCHC 33.3 RDW 13.5 Plt Count 183 MPV 11.9 H Gran % 88.2 H Lymph % (Auto) 6.7 L [place] % (Auto) 5.0 Eos % (Auto) 0.0 L Baso % (Auto) 0.1 Gran # 15.61 H Lymph # 1.2 [place] # 0.9 H Eos # 0.0 Baso # 0.02 APTT 88.5 H* pCO2 pO2 HCO3 ABG pH ABG Total CO2 ABG O2 Saturation ABG Base Excess ABG Potassium VBG pH VBG pCO2 VBG HCO3 VBG Total CO2 VBG O2 Sat (Calc) VBG Base Excess VBG Potassium Sodium 142 Chloride 107 Glucose Lactate Mechanical Rate FiO2 Tidal Volume PEEP Potassium 3.9 Carbon Dioxide 24 Anion Gap 15 BUN 25 H Creatinine 1.4 Est GFR ( Amer) 43 Est GFR (Non-Af Amer) 36 POC Glucose (mg/dL) 423 H* Random Glucose 398 H* Calcium 7.6 L Phosphorus 2.4 L Magnesium 1.3 L Total Bilirubin 0.9 AST 365 H ALT 106 H Alkaline Phosphatase 108 Troponin I 47.10 H* D Total Protein 5.4 L Albumin 2.6 L Globulin 2.8 Albumin/Globulin Ratio 0.9 L Arterial Blood Potassium Venous Blood Potassium 06/20/16 09:43 WBC RBC Hgb Hct MCV MCH MCHC RDW Plt Count MPV Gran % Lymph % (Auto) [place] % (Auto) Eos % (Auto) Baso % (Auto) Gran # Lymph # [place] # Eos # Baso # APTT pCO2 28 L pO2 66.0 L HCO3 20.4 L ABG pH 7.47 H ABG Total CO2 21.3 L ABG O2 Saturation 96.5 ABG Base Excess -2.0 ABG Potassium 4.2 VBG pH VBG pCO2 VBG HCO3 VBG Total CO2 VBG O2 Sat (Calc) VBG Base Excess VBG Potassium Sodium 141.0 Chloride 115.0 H Glucose 388 H Lactate 2.6 H Mechanical Rate 28 FiO2 100.0 Tidal Volume 400 PEEP 8 Potassium Carbon Dioxide Anion Gap BUN Creatinine Est GFR ( Amer) Est GFR (Non-Af Amer) POC Glucose (mg/dL) Random Glucose Calcium Phosphorus Magnesium Total Bilirubin AST ALT Alkaline Phosphatase Troponin I Total Protein Albumin Globulin Albumin/Globulin Ratio Arterial Blood Potassium 4.2 Venous Blood Potassium EKG/Cardiology Studies: Cardiology / EKG Studies 06/19/16 14:04 EKG [ELECTROCARDIOGRAM] Stat Comment: Reason For Exam: UNRESPONSIVE 06/20/16 06:49 EKG [ELECTROCARDIOGRAM] Stat Comment: Reason For Exam: rule out ACS Fingerstick Blood Sugar Results: 433 Review of Systems - Review of Systems Systems not reviewed;Unavailable: Intubated Critical Care Progress Note - Ventilator Checklist Head of Bed 30 Degrees: Yes Daily Sedation Vacation: Yes PUD Prophalyxis: Yes DVT Prophylaxis: Yes Assessment/Plan - Assessment and Plan (Free Text) Assessment: 85 F w PMH of DM, HTN, bronchitis Hypoxemic Respiratory Failure with metabolic acidosis s/p cardiac arrest NSTEMI Sepsis Neuro: seizure activity CT head : neg f/u Repeat CT head Neurologist, Dr. Shania Guerra consulted: recommended switching Cefepime to Zosyn bc Cefepime lower seizure threshold. Empiric Keppra for seizure ppx Precedex Sedation possible EEG this week CV: Cardiac Arrest : Trop 47, EKG: Infero Lateral ischemia, ST depression, BNP 4200 -Projection Technician following : slab off mill tender today -Echo: f/u reads -Lipitor/ASA -Plavix 70 PO -Heparine drip -Levophed held -Trend trop Pulm: Hypoxemic respiratory failure 2/2 aspiration pneumonia v pulmonary edema : vent dependent 100% /18//400 CXR: R>L infiltrate Initial ABG: PH: 7.10; Lactate 6.9, P02 - 45, Bicarb 13.7-> 7.47///20 Keep PaO2 >60 , SaO2 >90% : ARDS protocol: Keep TV low NaHCO3 50 meq IVP q5 min completed Daily ABG, CXR while intubated GI: Transaminitis AST/ALT: 370/100 -GI following: rec Abd US -PTX ppx Renal: Hyperglycemia -SSI -replete e-lyte as needed DVT: Lower extremity venous duplex-negative for DVTs -Heparin drip -Plavix 75 ID: Aspiration pneumonia :Leukocytosis: 23k->18k, Lactic acidosis: 7->4->2.6 -Maintain normothermia/hypothermia -Pancultures pending -ID following: Vanc/Doxy/Cefepime -Neuro recommends Cefepime-> Zosyn Case discussed with ICU attending. <Mari STARKS,Inamul H - Last Filed: 06/20/16 12:18> CCU Objective - Vital Signs / Intake & Output Intake and Output (Last 8hrs): Intake & Output 06/19/16 06/20/16 06/20/16 22:59 06:59 14:59 Intake Total 1472 841 Output Total 1000 300 Balance 472 541 Weight 183 lb 186 lb 2 oz Intake: IV 391 Heparin 106 Precedex 210 Levophed 75 Other 1472 450 Output: Urine 1000 300 Urethral (Menezes) 1000 300 Other: Voiding Method Indwelling Catheter Indwelling Catheter # Bowel Movements 0 0 - Medications Active Medications: Active Medications Generic Name Dose Route Start Last Admin Trade Name Freq PRN Reason Stop Dose Admin Aspirin 325 mg 06/19/16 16:00 06/20/16 09:10 Aspirin PO 325 mg DAILY MICHAEL Administration Atorvastatin Calcium 20 mg 06/19/16 17:00 06/19/16 16:14 Lipitor PO 20 mg DIN MICHAEL Administration Clopidogrel Bisulfate 75 mg 06/20/16 10:00 06/20/16 09:00 Plavix PO 75 mg DAILY MICHAEL Administration Norepinephrine Bitartrate 4 mg 254 mls @ 15.24 mls/hr 06/19/16 14:15 06/19/16 20:30 / Dextrose IV 15.24 mls/hr .[id number] PRN Administration TITRATE PER MD ORDER Protocol 4 MCG/MIN Dexmedetomidine HCl 100 mls @ 4.15 mls/hr 06/19/16 15:08 06/20/16 09:56 Precedex 4 Mcg/Ml (100 Ml) IV 4.15 mls/hr .Q24H PRN Administration Agitation Protocol 0.2 MCG/KG/HR Heparin Sodium/Sodium Chloride 250 mls @ 9.961 mls/hr 06/19/16 15:45 06/20/16 05:45 Heparin 86718 Units/250ml 1/2 Normal Saline IV 9.63 units/kg/hr .Q24H MICHAEL Titration Protocol 12 UNITS/KG/HR Levetiracetam 100 mls @ 400 mls/hr 06/19/16 22:00 06/20/16 09:39 Keppra 500mg Ivpb IV 400 mls/hr Q12 MICHAEL Administration Cefepime HCl 100 mls @ 100 mls/hr 06/20/16 10:30 Maxipime 2gm IVPB 06/25/16 10:31 Q12 MICHAEL Protocol Doxycycline Hyclate 100 mg/ 100 mls @ 100 mls/hr 06/20/16 10:30 06/20/16 11:05 Sodium Chloride IVPB 100 mls/hr Q12 MICHAEL Administration Protocol Piperacillin Sod/Tazobactam Sod 100 mls @ 100 mls/hr 06/20/16 12:00 Zosyn 2.25 Gm In 0.9% 100 Ml IVPB 06/20/16 18:59 Q6 MICHAEL Protocol Insulin Human Regular 0 units 06/20/16 11:30 06/20/16 11:49 Humulin R Med SC 8 units ACHS MICHAEL Administration Protocol Pantoprazole Sodium 40 mg 06/20/16 10:00 06/20/16 09:42 Protonix Inj IVP 40 mg DAILY MICHAEL Administration Sodium Bicarbonate 50 meq 06/19/16 15:15 06/19/16 16:09 Sodium Bicarbonate (8.4%) 50 Meq Syringe IVP 06/20/16 15:16 50 meq Q5MIN MICHAEL Administration - Patient Studies Lab Studies: Microbiology Studies 06/19/16 17:00 Gram Stain - Final Sputum Lab Studies 06/20/16 06/20/16 06/20/16 Range/Units 09:43 05:45 05:26 WBC 17.7 H D (4.5-11.0) 10^3/ul RBC 3.83 (3.5-6.1) 10^6/uL Hgb 11.3 L (12.0-16.0) gm/dL Hct 33.9 L (36.0-48.0) % MCV 88.5 (80.0-105.0) fL MCH 29.5 (25.0-35.0) pg MCHC 33.3 (31.0-37.0) g/dl RDW 13.5 (11.5-14.5) % Plt Count 183 (120.0-450.0) 10^3/uL MPV 11.9 H (7.0-11.0) fl Gran % 88.2 H (50.0-68.0) % Lymph % (Auto) 6.7 L (22.0-35.0) % [place] % (Auto) 5.0 (1.0-6.0) % Eos % (Auto) 0.0 L (1.5-5.0) % Baso % (Auto) 0.1 (0.0-3.0) % Gran # 15.61 H (1.4-6.5) Lymph # 1.2 (1.2-3.4) [place] # 0.9 H (0.1-0.6) Eos # 0.0 (0.0-0.7) Baso # 0.02 (0.0-2.0) K/mm3 APTT 88.5 H* (23.7-30.8) Seconds pCO2 28 L (35-45) mm/Hg pO2 66.0 L (80-100) mm/Hg HCO3 20.4 L (21-28) mmol/L ABG pH 7.47 H (7.35-7.45) ABG Total CO2 21.3 L (22-28) mmol.L ABG O2 Saturation 96.5 (95-98) % ABG Base Excess -2.0 (-2.0-3.0) mmol/L ABG Potassium 4.2 (3.6-5.2) mmol/L VBG pH (7.32-7.43) VBG pCO2 (40-60) VBG HCO3 (21-28) mmol/l VBG Total CO2 (22-28) mmol.L VBG O2 Sat (Calc) (40-65) % VBG Base Excess (0.0-2.0) mmol/L VBG Potassium (3.6-5.2) mmol/L Sodium 141.0 142 (132-148) mmol/L Chloride 115.0 H 107 (98-107) mmol/L Glucose 388 H (65-105) mg/dl Lactate 2.6 H (0.7-2.1) mmol/L Mechanical Rate 28 FiO2 100.0 % Tidal Volume 400 PEEP 8 Potassium 3.9 (3.6-5.0) mmol/L Carbon Dioxide 24 (21-33) mmol/L Anion Gap 15 (10-20) BUN 25 H (7-21) mg/dL Creatinine 1.4 (0.5-1.4) mg/dL Est GFR ( Amer) 43 Est GFR (Non-Af Amer) 36 POC Glucose (mg/dL) 423 H* (65-110) mg/dL Random Glucose 398 H* (70-110) mg/dL Calcium 7.6 L (8.4-10.5) mg/dL Phosphorus 2.4 L (2.5-4.5) mg/dL Magnesium 1.3 L (1.7-2.2) mg/dL Total Bilirubin 0.9 (0.2-1.3) mg/dL AST 365 H (15-39) U/L ALT 106 H (7-56) U/L Alkaline Phosphatase 108 (38-133) U/L Troponin I ng/mL Total Protein 5.4 L (5.8-8.3) g/dL Albumin 2.6 L (3.0-4.8) g/dL Globulin 2.8 gm/dL Albumin/Globulin Ratio 0.9 L (1.1-1.8) Arterial Blood Potassium 4.2 (3.6-5.2) mmol/L Venous Blood Potassium (3.6-5.2) mmol/L 06/20/16 06/19/16 06/19/16 Range/Units 01:30 23:56 22:00 WBC (4.5-11.0) 10^3/ul RBC (3.5-6.1) 10^6/uL Hgb (12.0-16.0) gm/dL Hct (36.0-48.0) % MCV (80.0-105.0) fL MCH (25.0-35.0) pg MCHC (31.0-37.0) g/dl RDW (11.5-14.5) % Plt Count (120.0-450.0) 10^3/uL MPV (7.0-11.0) fl Gran % (50.0-68.0) % Lymph % (Auto) (22.0-35.0) % [place] % (Auto) (1.0-6.0) % Eos % (Auto) (1.5-5.0) % Baso % (Auto) (0.0-3.0) % Gran # (1.4-6.5) Lymph # (1.2-3.4) [place] # (0.1-0.6) Eos # (0.0-0.7) Baso # (0.0-2.0) K/mm3 APTT 55.5 H (23.7-30.8) Seconds pCO2 (35-45) mm/Hg pO2 (80-100) mm/Hg HCO3 (21-28) mmol/L ABG pH (7.35-7.45) ABG Total CO2 (22-28) mmol.L ABG O2 Saturation (95-98) % ABG Base Excess (-2.0-3.0) mmol/L ABG Potassium (3.6-5.2) mmol/L VBG pH (7.32-7.43) VBG pCO2 (40-60) VBG HCO3 (21-28) mmol/l VBG Total CO2 (22-28) mmol.L VBG O2 Sat (Calc) (40-65) % VBG Base Excess (0.0-2.0) mmol/L VBG Potassium (3.6-5.2) mmol/L Sodium (132-148) mmol/L Chloride (98-107) mmol/L Glucose (65-105) mg/dl Lactate (0.7-2.1) mmol/L Mechanical Rate FiO2 % Tidal Volume PEEP Potassium (3.6-5.0) mmol/L Carbon Dioxide (21-33) mmol/L Anion Gap (10-20) BUN (7-21) mg/dL Creatinine (0.5-1.4) mg/dL Est GFR ( Amer) Est GFR (Non-Af Amer) POC Glucose (mg/dL) 354 H (65-110) mg/dL Random Glucose (70-110) mg/dL Calcium (8.4-10.5) mg/dL Phosphorus (2.5-4.5) mg/dL Magnesium (1.7-2.2) mg/dL Total Bilirubin (0.2-1.3) mg/dL AST (15-39) U/L ALT (7-56) U/L Alkaline Phosphatase (38-133) U/L Troponin I 47.10 H* D ng/mL Total Protein (5.8-8.3) g/dL Albumin (3.0-4.8) g/dL Globulin gm/dL Albumin/Globulin Ratio (1.1-1.8) Arterial Blood Potassium (3.6-5.2) mmol/L Venous Blood Potassium (3.6-5.2) mmol/L 06/19/16 06/19/16 06/19/16 Range/Units 21:30 18:00 17:35 WBC (4.5-11.0) 10^3/ul RBC (3.5-6.1) 10^6/uL Hgb (12.0-16.0) gm/dL Hct (36.0-48.0) % MCV (80.0-105.0) fL MCH (25.0-35.0) pg MCHC (31.0-37.0) g/dl RDW (11.5-14.5) % Plt Count (120.0-450.0) 10^3/uL MPV (7.0-11.0) fl Gran % (50.0-68.0) % Lymph % (Auto) (22.0-35.0) % [place] % (Auto) (1.0-6.0) % Eos % (Auto) (1.5-5.0) % Baso % (Auto) (0.0-3.0) % Gran # (1.4-6.5) Lymph # (1.2-3.4) [place] # (0.1-0.6) Eos # (0.0-0.7) Baso # (0.0-2.0) K/mm3 APTT (23.7-30.8) Seconds pCO2 (35-45) mm/Hg pO2 25 L 28 L (80-100) mm/Hg HCO3 (21-28) mmol/L ABG pH (7.35-7.45) ABG Total CO2 (22-28) mmol.L ABG O2 Saturation (95-98) % ABG Base Excess (-2.0-3.0) mmol/L ABG Potassium (3.6-5.2) mmol/L VBG pH 7.29 L 7.29 L (7.32-7.43) VBG pCO2 47.0 40.0 (40-60) VBG HCO3 22.6 19.2 L (21-28) mmol/l VBG Total CO2 24.0 20.4 L (22-28) mmol.L VBG O2 Sat (Calc) 44.5 53.6 (40-65) % VBG Base Excess -4.2 L -7.0 L (0.0-2.0) mmol/L VBG Potassium 4.6 4.0 (3.6-5.2) mmol/L Sodium 141.0 143.0 (132-148) mmol/L Chloride 107.0 114.0 H (98-107) mmol/L Glucose 443 H* 391 H (65-105) mg/dl Lactate 3.8 H 3.6 H (0.7-2.1) mmol/L Mechanical Rate FiO2 21.0 21.0 % Tidal Volume PEEP Potassium (3.6-5.0) mmol/L Carbon Dioxide (21-33) mmol/L Anion Gap (10-20) BUN (7-21) mg/dL Creatinine (0.5-1.4) mg/dL Est GFR ( Amer) Est GFR (Non-Af Amer) POC Glucose (mg/dL) (65-110) mg/dL Random Glucose (70-110) mg/dL Calcium (8.4-10.5) mg/dL Phosphorus (2.5-4.5) mg/dL Magnesium (1.7-2.2) mg/dL Total Bilirubin (0.2-1.3) mg/dL AST (15-39) U/L ALT (7-56) U/L Alkaline Phosphatase (38-133) U/L Troponin I 5.06 H* D ng/mL Total Protein (5.8-8.3) g/dL Albumin (3.0-4.8) g/dL Globulin gm/dL Albumin/Globulin Ratio (1.1-1.8) Arterial Blood Potassium (3.6-5.2) mmol/L Venous Blood Potassium 4.6 4.0 (3.6-5.2) mmol/L // Range/Units 16:50 WBC (4.5-11.0) 10^3/ul RBC (3.5-6.1) 10^6/uL Hgb (12.0-16.0) gm/dL Hct (36.0-48.0) % MCV (80.0-105.0) fL MCH (25.0-35.0) pg MCHC (31.0-37.0) g/dl RDW (11.5-14.5) % Plt Count (120.0-450.0) 10^3/uL MPV (7.0-11.0) fl Gran % (50.0-68.0) % Lymph % (Auto) (22.0-35.0) % [place] % (Auto) (1.0-6.0) % Eos % (Auto) (1.5-5.0) % Baso % (Auto) (0.0-3.0) % Gran # (1.4-6.5) Lymph # (1.2-3.4) [place] # (0.1-0.6) Eos # (0.0-0.7) Baso # (0.0-2.0) K/mm3 APTT (23.7-30.8) Seconds pCO2 41 (35-45) mm/Hg pO2 58.0 L (80-100) mm/Hg HCO3 20.6 L (21-28) mmol/L ABG pH 7.31 L (7.35-7.45) ABG Total CO2 21.9 L (22-28) mmol.L ABG O2 Saturation 91.3 L (95-98) % ABG Base Excess -5.4 L (-2.0-3.0) mmol/L ABG Potassium 4.2 (3.6-5.2) mmol/L VBG pH (7.32-7.43) VBG pCO2 (40-60) VBG HCO3 (21-28) mmol/l VBG Total CO2 (22-28) mmol.L VBG O2 Sat (Calc) (40-65) % VBG Base Excess (0.0-2.0) mmol/L VBG Potassium (3.6-5.2) mmol/L Sodium 141.0 (132-148) mmol/L Chloride 115.0 H (98-107) mmol/L Glucose 398 H (65-105) mg/dl Lactate 2.9 H (0.7-2.1) mmol/L Mechanical Rate 28 FiO2 100.0 % Tidal Volume 400 PEEP 5 Potassium (3.6-5.0) mmol/L Carbon Dioxide (21-33) mmol/L Anion Gap (10-20) BUN (7-21) mg/dL Creatinine (0.5-1.4) mg/dL Est GFR ( Amer) Est GFR (Non-Af Amer) POC Glucose (mg/dL) (65-110) mg/dL Random Glucose (70-110) mg/dL Calcium (8.4-10.5) mg/dL Phosphorus (2.5-4.5) mg/dL Magnesium (1.7-2.2) mg/dL Total Bilirubin (0.2-1.3) mg/dL AST (15-39) U/L ALT (7-56) U/L Alkaline Phosphatase (38-133) U/L Troponin I ng/mL Total Protein (5.8-8.3) g/dL Albumin (3.0-4.8) g/dL Globulin gm/dL Albumin/Globulin Ratio (1.1-1.8) Arterial Blood Potassium 4.2 (3.6-5.2) mmol/L Venous Blood Potassium (3.6-5.2) mmol/L Laboratory Results - last 24 hr 06/19/16 06/19/16 06/19/16 16:50 17:35 18:00 WBC RBC Hgb Hct MCV MCH MCHC RDW Plt Count MPV Gran % Lymph % (Auto) [place] % (Auto) Eos % (Auto) Baso % (Auto) Gran # Lymph # [place] # Eos # Baso # APTT pCO2 41 pO2 58.0 L 28 L HCO3 20.6 L ABG pH 7.31 L ABG Total CO2 21.9 L ABG O2 Saturation 91.3 L ABG Base Excess -5.4 L ABG Potassium 4.2 VBG pH 7.29 L VBG pCO2 40.0 VBG HCO3 19.2 L VBG Total CO2 20.4 L VBG O2 Sat (Calc) 53.6 VBG Base Excess -7.0 L VBG Potassium 4.0 Sodium 141.0 143.0 Chloride 115.0 H 114.0 H Glucose 398 H 391 H Lactate 2.9 H 3.6 H Mechanical Rate 28 FiO2 100.0 21.0 Tidal Volume 400 PEEP 5 Potassium Carbon Dioxide Anion Gap BUN Creatinine Est GFR ( Amer) Est GFR (Non-Af Amer) POC Glucose (mg/dL) Random Glucose Calcium Phosphorus Magnesium Total Bilirubin AST ALT Alkaline Phosphatase Troponin I 5.06 H* D Total Protein Albumin Globulin Albumin/Globulin Ratio Arterial Blood Potassium 4.2 Venous Blood Potassium 4.0 06/19/16 06/19/16 06/19/16 21:30 22:00 23:56 WBC RBC Hgb Hct MCV MCH MCHC RDW Plt Count MPV Gran % Lymph % (Auto) [place] % (Auto) Eos % (Auto) Baso % (Auto) Gran # Lymph # [place] # Eos # Baso # APTT 55.5 H pCO2 pO2 25 L HCO3 ABG pH ABG Total CO2 ABG O2 Saturation ABG Base Excess ABG Potassium VBG pH 7.29 L VBG pCO2 47.0 VBG HCO3 22.6 VBG Total CO2 24.0 VBG O2 Sat (Calc) 44.5 VBG Base Excess -4.2 L VBG Potassium 4.6 Sodium 141.0 Chloride 107.0 Glucose 443 H* Lactate 3.8 H Mechanical Rate FiO2 21.0 Tidal Volume PEEP Potassium Carbon Dioxide Anion Gap BUN Creatinine Est GFR ( Amer) Est GFR (Non-Af Amer) POC Glucose (mg/dL) 354 H Random Glucose Calcium Phosphorus Magnesium Total Bilirubin AST ALT Alkaline Phosphatase Troponin I Total Protein Albumin Globulin Albumin/Globulin Ratio Arterial Blood Potassium Venous Blood Potassium 4.6 06/20/16 06/20/16 06/20/16 01:30 05:26 05:45 WBC 17.7 H D RBC 3.83 Hgb 11.3 L Hct 33.9 L MCV 88.5 MCH 29.5 MCHC 33.3 RDW 13.5 Plt Count 183 MPV 11.9 H Gran % 88.2 H Lymph % (Auto) 6.7 L [place] % (Auto) 5.0 Eos % (Auto) 0.0 L Baso % (Auto) 0.1 Gran # 15.61 H Lymph # 1.2 [place] # 0.9 H Eos # 0.0 Baso # 0.02 APTT 88.5 H* pCO2 pO2 HCO3 ABG pH ABG Total CO2 ABG O2 Saturation ABG Base Excess ABG Potassium VBG pH VBG pCO2 VBG HCO3 VBG Total CO2 VBG O2 Sat (Calc) VBG Base Excess VBG Potassium Sodium 142 Chloride 107 Glucose Lactate Mechanical Rate FiO2 Tidal Volume PEEP Potassium 3.9 Carbon Dioxide 24 Anion Gap 15 BUN 25 H Creatinine 1.4 Est GFR ( Amer) 43 Est GFR (Non-Af Amer) 36 POC Glucose (mg/dL) 423 H* Random Glucose 398 H* Calcium 7.6 L Phosphorus 2.4 L Magnesium 1.3 L Total Bilirubin 0.9 AST 365 H ALT 106 H Alkaline Phosphatase 108 Troponin I 47.10 H* D Total Protein 5.4 L Albumin 2.6 L Globulin 2.8 Albumin/Globulin Ratio 0.9 L Arterial Blood Potassium Venous Blood Potassium 06/20/16 09:43 WBC RBC Hgb Hct MCV MCH MCHC RDW Plt Count MPV Gran % Lymph % (Auto) [place] % (Auto) Eos % (Auto) Baso % (Auto) Gran # Lymph # [place] # Eos # Baso # APTT pCO2 28 L pO2 66.0 L HCO3 20.4 L ABG pH 7.47 H ABG Total CO2 21.3 L ABG O2 Saturation 96.5 ABG Base Excess -2.0 ABG Potassium 4.2 VBG pH VBG pCO2 VBG HCO3 VBG Total CO2 VBG O2 Sat (Calc) VBG Base Excess VBG Potassium Sodium 141.0 Chloride 115.0 H Glucose 388 H Lactate 2.6 H Mechanical Rate 28 FiO2 100.0 Tidal Volume 400 PEEP 8 Potassium Carbon Dioxide Anion Gap BUN Creatinine Est GFR ( Amer) Est GFR (Non-Af Amer) POC Glucose (mg/dL) Random Glucose Calcium Phosphorus Magnesium Total Bilirubin AST ALT Alkaline Phosphatase Troponin I Total Protein Albumin Globulin Albumin/Globulin Ratio Arterial Blood Potassium 4.2 Venous Blood Potassium EKG/Cardiology Studies: Cardiology / EKG Studies 06/19/16 14:04 EKG [ELECTROCARDIOGRAM] Stat Comment: Reason For Exam: UNRESPONSIVE 06/20/16 06:49 EKG [ELECTROCARDIOGRAM] Stat Comment: Reason For Exam: rule out ACS 06/20/16 11:46 ELECTROCARDIOGRAM Stat Comment: Vascular dept Reason For Exam: cp PRE OP:: N Does Patient Have a Pacemaker?: No PERFORMING PHYSICIAN/PROVIDER:: Bridgette Urias Attending/Attestation - Attestation I have personally seen and examined this patient.: Yes I have fully participated in the care of the patient.: Yes I have reviewed all pertinent clinical information: Yes Notes (Text): 06/20/16 12:12 85 y/o F s/p Cardiac arrest Cardiac arrest ROSC achieved, on heparin drip, asprin, plavix and lipitor. Off all vasopressors .Plan for cardiac cath today ( troponin elevation) On minimal sedation with Precedex , plans to stop sedation to evulate neurological status . Seizures x 2 at home- likely secondary to metabolic causes. Did start on Keppra load and daily dosing. Neurology following closely, possible needs an EEG once stable to be off sedation and full neuro exam is done. Acute respiratory failure- AC/VC on 100% fio2 and Peep 8 w/ PAO2 66. - R dense infiltrate likely aspiration and b/l pulmonary vascular congestion. ECHO pending post cardiac cath. Leukocytosis secondary to aspiration and/or reactive - On empiric abx with improvement of WBC . CX pending. ppi cc time 72 min
--- NOTE | 2016-06-20 11:28 | CON ---
DATE: 06/20/2016 REASON FOR CONSULTATION: Cardiac arrest. HISTORY OF PRESENT ILLNESS: The patient is an 85-year-old female who was brought to the Emergency Ro om unresponsive and intubated. EMS was apparently called after patient was having shortness of breat h. Upon arrival of EMS, the patient was unresponsive and went into cardiac arrest. The patient had a questionable seizure prior to EMS was called. The patient did have some frothy sputum coming from the mouth. At the moment, the patient is intubated and lightly sedated. REVIEW OF SYSTEMS: Unable to obtain because of the patient's current status. PAST MEDICAL HISTORY: Includes hypertension, diabetes mellitus. MEDICATIONS AT HOME: Include metformin, glipizide, Coreg, Januvia. ALLERGIES: No known drug allergies. SOCIAL HISTORY: The patient is a former smoker. FAMILY HISTORY: Unknown. PHYSICAL EXAMINATION: GENERAL: The patient is an elderly female, lying on the bed, on a ventilator, in no acute distress. VITAL SIGNS: Her blood pressure is 118/75, heart rate is 47 per minute. Her ventilator is set at 20 per minute. She is taking some breath spontaneously. Her temperature is 93.2 degrees Fahrenheit. HEENT: Head is normocephalic, atraumatic. NECK: Supple. There are no carotid bruits. LUNGS: Clear. CARDIOVASCULAR: S1, S2 audible. No murmurs. ABDOMEN: Soft, nontender, bowel sounds are absent. NEUROLOGIC EXAMINATION: MENTAL STATUS: The patient is not responsive to verbal or noxious painful stimuli. CRANIAL NERVES: Pupils are 1 mm bilaterally, nonreactive. Absent doll's eye movement. Absent corne al reflex. Minimal gag reflex. She does not withdraw any extremity to noxious painful stimuli. REFLEXES: Absent. Plantars, no response. Gait is untestable. LABORATORY DATA: Reviewed, shows WBC of 17.7, hemoglobin of 11.3, hematocrit 33.9 and platelets of 1 83. Sodium is 142, potassium 3.9, chloride 107, carbon dioxide content of 24, BUN of 25, creatinine of 1.4 and glucose of 398. She had a CT scan of the head done, which showed moderate nonspecific whi te matter changes. Opacification of the maxillary sinusitis. No acute intracranial pathology. IMPRESSION: 1. Hypoxic encephalopathy, status post cardiac arrest. 2. Questionable seizure. 3. Respiratory failure. RECOMMENDATIONS: 1. The patient to have an electroencephalogram. 2. The patient was started on Keppra, which may be continued. 3. The patient is currently on Maxipime because of high WBC count. Consider changing the Maxipime t o another agent as it has the potential to cause seizures. 4. Please continue ventilator support. 5. We will be able to better evaluate neuro status once the patient is completely off sedation. 6. Please continue supportive care and other treatment. Thank you for the opportunity to participate in the care of this patient. Valerie Guerra MD cc: [id number] TT: 06/20/2016 11:27:57 Confirmation # [id number] Dictation # [id number] mn
[2016-06-20] MEDS ORDERED: Lidocaine 2% Inj (20ml) ONE (11:30)
[2016-06-20] MEDS ORDERED: Iodixanol 320 mg/ml 150 ml Bottle IV ONE (11:30)
[2016-06-20] MEDS ORDERED: Nitroglycerin 50mg in D5W 0 ML IV ONE (11:31)
[2016-06-20] MEDS: Insulin Reg-MEDIUM-Coverage SC SCH ×3 (11:49→21:52)
[2016-06-20] MEDS ORDERED: Eptifibatide 20 mg/10mL Inj IVP ONE ×2 (12:32→12:33)
[2016-06-20] MEDS ORDERED: Eptifibatide 0.75 mg/ml 100 ML IV ONE (12:33)
--- NOTE | 2016-06-20 12:34 | CON ---
DATE: 06/20/2016 REASON FOR CONSULTATION: Respiratory failure. REFERRING PHYSICIAN: Dr. Octavio Wheeler. History is obtained via extensive discussion with Dr. Guerra (library clerk talking books), and the medical office administrator. I have also reviewed the chart at length. HISTORY OF PRESENT ILLNESS: The patient is an 85-year-old female with past medical history significant for chronic obstructive pulmonary disease, coronary artery disease, coronary artery stenting in the past, diabetes mellitus, who presented to [facility] -- after being found in respiratory distress (by the family) at home. Apparently, the patient was found by the family-- lethargic and short of breath. Emergency medical services were then called. Apparently, prior to emergency medical services arriving on the scene, the patient had multiple seizures. When arriving at the Emergency Room, the patient had frothy sputum coming out of her mouth and was subsequently intubated. I am thus asked to evaluate on this case for additional ventilator management. Again, I did discuss the case with Dr. Guerra and the medical office administrator at length. Apparently, the patient was found lethargic and in respiratory distress -- by the family. There was no history of preceding cough or sputum production. There is no history of chest pain, coughing up of blood, or chest pain -- made worse with deep respirations. There is no history of temperatures, chills or infectious exposure. There is no history of night sweats, weight loss or appetite change prior to the above events. No history of leg or calf pains. No history of recent travel or trauma. REVIEW OF SYSTEMS: No history of nausea, vomiting or diarrhea. No acute urinary symptoms. No new musculoskeletal complaints. The rest of the review of systems is negative. ALLERGIES: No known allergies. SOCIAL HISTORY: Negative for tobacco, negative for alcohol. FAMILY HISTORY: No inheritable diseases. HOME MEDICATIONS: Include Januvia, Glucotrol, Glucophage, Coreg. PHYSICAL EXAMINATION: GENERAL: The patient is currently intubated and sedated. VITAL SIGNS: Temperature is 96.7, pulse is 48, respirations 28/28. The last blood pressure recorded in the chart -- 109/31. HEENT: Normocephalic, atraumatic. NECK: Positive JVD. CARDIOVASCULAR: Systolic ejection murmur at the lower left sternal border. Positive S3 gallop. LUNGS: Crackles at both lower lobes. Minimal bilateral rhonchi. No wheezing. EXTREMITIES: Mild edema. No cyanosis, no clubbing. GASTROINTESTINAL: Abdomen is soft, nondistended. Bowel sounds are positive. SKIN: No acute rash. NEUROLOGIC: Limited at the present time. PERTINENT LABORATORY DATA: Chest x-ray was done and reviewed. There are bilateral pulmonary infiltrates noted (right worse than left). Complete metabolic profile: Potassium 5.5, glucose 369, phosphorus 6.2, AST 47. B-type natriuretic peptide 4190. Rest of the profile is within normal limits. Peak troponin 47.10. CBC: White count 17.7, hemoglobin 11.3, hematocrit 33.9, platelets of 183. Arterial blood gas was done on assist control 28, tidal volume 400, FiO2 100%, PEEP of 8. Results are: PH 7.47, pCO2 28, pO2 of 66. IMPRESSION: 1. Respiratory failure. 2. Status post cardiopulmonary resuscitation. 3. Acute congestive heart failure. 4. Acute myocardial infarction. 5. Rule out underlying pneumonia, rule out aspiration. 6. History of coronary artery disease. 7. Chronic obstructive pulmonary disease. 8. Diabetes mellitus. PLAN: Again, I did discuss the case with Dr. Guerra (library clerk talking books) and the medical office administrator at length. I have also reviewed the chart at length. Apparently, the patient was found at home -- by the family -- lethargic and in respiratory distress. The patient also apparently had several seizures prior to EMS arriving on the scene. I did discuss the case with the nurses at length. While in the ICU, the patient also lost blood pressure and pulse -- and was subsequently successfully resuscitated. I did review the x-ray as above. There are bilateral pulmonary infiltrates noted -- right worse than left. Due to the history -- as above -- I would certainly cover the patient for aspiration pneumonia. Input by Dr. Mata (infectious disease) is noted. I have also reviewed the arterial blood gas. A mild respiratory alkalosis with a significant alveolar arterial gradient is noted. Lastly, a significant rise in the troponin is noted. Peak troponin is 47.10. The patient is for probable cardiac catheterization -- with Dr. Urias -- later today. Repeat labs and x-ray will be ordered and followed. The patient is critically ill at the present time with overall poor prognosis. I will discuss the above with Dr. Wheeler later this morning. Thank you very much for this pulmonary consultation. Mandeep Nixon MD cc: [id number] TT: 06/20/2016 12:33:48 Confirmation # [id number] Dictation # [id number] mn [id number]
--- NOTE | 2016-06-20 12:38 | CARD ---
APPROVED REPORT EKG Measurement Heart [id number] <Conclusion> Junctional rhythm ST & T wave abnormality, consider inferior ischemia ST & T wave abnormality, consider anterolateral ischemia Prolonged QT Abnormal ECG
[2016-06-20] MEDS ORDERED: Phenylephrine 10 mg/ml Inj ONE (12:41)
[2016-06-20] MEDS ORDERED: Iodixanol 320 MG/ML 100 ML BOTTLE IV ONE (12:47)
--- NOTE | 2016-06-20 12:58 | CARD ---
APPROVED REPORT EXAM: Two-dimensional and M-mode echocardiogram with Doppler and color Doppler. INDICATION CARDIAC ARREST 2D DIMENSIONS Left Atrium (2D)3.3 (1.6-4.0cm)IVSd1.3 (0.7-1.1cm) LVDd4.1 (3.9-5.9cm)PWd1.3 (0.7-1.1cm) LVDs3.5 (2.5-4.0cm)FS (%) 15.0 % LVEF (%)32.0 (>50%) M-Mode DIMENSIONS Aortic Root2.60 (2.2-3.7cm)Aortic Cusp Exc.1.50 (1.5-2.0cm) Aortic Valve AoV Peak Pdmjdzik439.0cm/Darrian Peak GR.5mmHg Mitral Valve MV E Sydimpfy67.5cm/sMV A Mgjrkntc64.7cm/sE/A ratio1.7 TDI E/Lateral E'0.0E/Medial E'0.0 Tricuspid Valve TR Peak [id number] [id number] Peak Gr.11mmHg [id number] LEFT VENTRICLE The left ventricle is normal size. There is normal left ventricular wall thickness. The systolic function is severely impaired. Infero-lateral hypokinesis Transmitral Doppler flow pattern is Grade II-pseudonormal filling dynamics. RIGHT VENTRICLE The right ventricle is normal size. There is normal right ventricular wall thickness. The right ventricular systolic function is normal. ATRIA The left atrium size is normal. The right atrium size is normal. AORTIC VALVE The aortic valve is moderately sclerotic. MITRAL VALVE Mitral annular calcification is moderate to severe. Mitral regurgitation is trace to mild. TRICUSPID VALVE There is no pulmonary hypertension. GREAT VESSELS The IVC collapses <50% with inspiration. PERICARDIAL EFFUSION There is a trace loculated anterior pericardial effusion. <Conclusion> The left ventricle is normal size. There is normal left ventricular wall thickness. The systolic function is severely impaired. Infero-lateral hypokinesis Mitral regurgitation is trace to mild.
--- NOTE | 2016-06-20 13:02 | CARD ---
APPROVED REPORT EKG Measurement Heart [id number] <Conclusion> Unusual P axis, possible ectopic atrial bradycardia ST & T wave abnormality, consider lateral ischemia Prolonged QT Abnormal ECG
[2016-06-20] MEDS ORDERED: Sodium Chloride 0.45% 1,000 ML IV SCH (13:15)
--- NOTE | 2016-06-20 14:01 | CARDCATH ---
PROCEDURE DATE: 06/20/2016 HISTORY OF PRESENT ILLNESS: The patient is an 85-year-old woman who presents in cardiopulmonary arre st to the ICU. In the ICU, the patient was hypotensive transiently, was finally resuscitated and tapered off the pre ssors. The troponins peaked at 45. Because of ongoing ischemia and markedly abnormal EKG as well as hypoten delores, the patient was brought to the senior label specialist under emergency situations due to her cardiogenic shock and diffuse ischemia. PROCEDURE: Left heart catheterization with coronary angiography and left ventriculogram, followed by PTCA attempt of proximal circumflex artery. The left femoral artery was cannulated with a 6-Mosotho sheath. There were no complications. Initial hemodynamic data revealed a central aortic pressure of 100 systolic. The patient required 2 doses of Miah to maintain pressure. LVEDP on left ventriculogram was 20 mmHg. LV ventriculogram revealed a dilated and diffusely hypokinetic left ventricle with an EF of 35%-40%. Her coronary anatomy revealed diffuse atherosclerosis and calcification. There was a 50% ostial left main stenosis. In addition, the proximal circumflex revealed diffuse calcification with intraluminal defect in the p roximal portion resulting in a 95% stenosis in the proximal portion. The LAD and diagonal vessels revealed diffuse atherosclerosis throughout its course with a 50% mid LA D stenosis. The right coronary artery was a dominant vessel and revealed diffuse atherosclerosis without critical lesions. The patient was started on intravenous Angiomax as well as intravenous Integrilin. A guiding catheter was placed in the ostium of the left main artery. Two ATW wires were placed past the critical lesions for better support. Attempt at using a 2.0 balloon followed by a 1.5 balloon was unsuccessful due to the intraluminal def ect which represented calcium instead of thrombus. After multiple attempts at passing the balloons, the test was aborted. Repeat coronary angiography revealed no change. The patient hemodynamically remained stable. SUMMARY: The procedure was unsuccessful for an emergency percutaneous transluminal coronary angiopla sty of a 95% proximal heavily calcified circumflex artery. Cardiac catheterization revealed diffuse atherosclerosis and calcium to her coronary tree as well as a 95% proximal circumflex artery due to heavy calcification as well as a 50% mid left anterior descen ding lesion. Left ventricular function was compromised with an ejection fraction of 35%-40%. Given these findings, the patient will be brought back to the coronary care unit. I have discussed w guadalupe He, who once the patient is stabilized, will take the patient to [facility] for rot ablator of the proximal circumflex artery. Parish Urias MD cc: [id number] TT: 06/20/2016 14:00:25 en
[2016-06-20] MEDS: Piperacillin/Tazobact 2.25gm 100 ML IVPB SCH ×2 (14:13→18:55)
--- NOTE | 2016-06-20 14:30 | CP.PCM.PN ---
Subjective - Date & Time of Evaluation Date of Evaluation: 06/20/16 Time of Evaluation: 10:30 - Subjective Subjective: PGY-1 Medicine progress Patient seen and examined at bedside in the ICU. Patient is intubated with vent settings of FIO2 100%, PEEP 8, rate 28, tidal vol 400 and Precedex for sedation. Nurse reports no acute events overnight. 1300 cc urinary output over 24 hours. Patient is off pressers. Objective - Vital Signs/Intake and Output Vital Signs (last 24 hours): Temp Pulse Resp BP Pulse Ox 93.2 F L 46 L 28 H 104/51 L 97 06/20/16 08:00 06/20/16 14:19 06/20/16 14:19 06/20/16 14:19 06/20/16 14:19 Intake and Output: 06/20/16 06/20/16 06:59 18:59 Intake Total 841 Output Total 300 Balance 541 - Medications Medications: Current Medications Aspirin (Ecotrin) 81 mg PO DAILY [facility] Atorvastatin Calcium (Lipitor) 20 mg PO DIN [facility] Last Admin: 06/19/16 16:14 Dose: 20 mg Clopidogrel Bisulfate (Plavix) 75 mg PO DAILY [facility] Last Admin: 06/20/16 09:00 Dose: 75 mg Norepinephrine Bitartrate 4 mg (/ Dextrose) 254 mls @ 15.24 mls/hr IV .[id number] PRN; Protocol; 4 MCG/MIN PRN Reason: TITRATE PER MD ORDER Last Admin: 06/19/16 20:30 Dose: 15.24 mls/hr Dexmedetomidine HCl (Precedex 4 Mcg/Ml (100 Ml)) 100 mls @ 4.15 mls/hr IV .Q24H PRN; Protocol; 0.2 MCG/KG/HR PRN Reason: Agitation Last Admin: 06/20/16 09:56 Dose: 4.15 mls/hr Heparin Sodium/Sodium Chloride (Heparin 14088 Units/250ml 1/2 Normal Saline) 250 mls @ 9.961 mls/hr IV .Q24H MICHAEL; 12 UNITS/KG/HR PRN Reason: Protocol Last Titration: 06/20/16 05:45 Dose: 9.63 units/kg/hr Levetiracetam (Keppra 500mg Ivpb) 100 mls @ 400 mls/hr IV Q12 MICHAEL Last Admin: 06/20/16 09:39 Dose: 400 mls/hr Cefepime HCl (Maxipime 2gm) 100 mls @ 100 mls/hr IVPB Q12 MICHAEL PRN Reason: Protocol Stop: 06/25/16 10:31 Doxycycline Hyclate 100 mg/ (Sodium Chloride) 100 mls @ 100 mls/hr IVPB Q12 MICHAEL PRN Reason: Protocol Last Admin: 06/20/16 11:05 Dose: 100 mls/hr Piperacillin Sod/Tazobactam Sod (Zosyn 2.25 Gm In 0.9% 100 Ml) 100 mls @ 100 mls/hr IVPB Q6 MICHAEL PRN Reason: Protocol Stop: 06/20/16 18:59 Last Admin: 06/20/16 14:13 Dose: 100 mls/hr Sodium Chloride (Sodium Chloride 0.45%) 1,000 mls @ 50 mls/hr IV .Q20H [facility] Stop: 06/20/16 18:00 Insulin Human Regular (Humulin R Med) 0 units SC ACHS MICHAEL PRN Reason: Protocol Last Admin: 06/20/16 11:49 Dose: 8 units Pantoprazole Sodium (Protonix Inj) 40 mg IVP DAILY [facility] Last Admin: 06/20/16 09:42 Dose: 40 mg Sodium Bicarbonate (Sodium Bicarbonate (8.4%) 50 Meq Syringe) 50 meq IVP Q5MIN [facility] Stop: 06/20/16 15:16 Last Admin: 06/19/16 16:09 Dose: 50 meq - Labs Labs: 06/20/16 05:45 06/20/16 05:45 PT 11.6 Seconds (9.9-11.8) 06/19/16 13:30 INR 1.07 (0.93-1.08) 06/19/16 13:30 APTT 88.1 Seconds (23.7-30.8) H* 06/20/16 12:16 - Head Exam Head Exam: ATRAUMATIC, NORMOCEPHALIC - Eye Exam Eye Exam: absent: Scleral icterus Pupil Exam: Miosis, PERRL - ENT Exam Additional comments: intubated - Respiratory Exam Respiratory Exam: Rales. absent: Rhonchi, Wheezes, Respiratory Distress Additional comments: intubated - Cardiovascular Exam Cardiovascular Exam: REGULAR RHYTHM. absent: Tachycardia, Murmur - GI/Abdominal Exam GI & Abdominal Exam: Soft, Normal Bowel Sounds. absent: Distended, Firm, Tenderness - Extremities Exam Extremities Exam: Normal Inspection Additional comments: trace pitting edema - Neurological Exam Neurological Exam: absent: Alert, Awake Additional comments: patient is sedated - Skin Skin Exam: Dry, Intact, Normal Color, Warm Assessment and Plan - Assessment and Plan (Free Text) Assessment: 85yo female with PMH of DM, HTN, bronchitis present with hypoxemic respiratory failure with metabolic acidosis, NSTEMI, sepsis and possible seizure. Patient is intubated, repeat ABG improved; pH: 7.47 with resp alkalosis, on Precedex for sedation. Cardiac cath was unsuccessful for PTCA of 95% proximal circumflex , and 50% mid left LAD, will need to transfer to [facility]. Continue ICU management. Plan: 1. Hypoxemic Respiratory Failure with metabolic acidosis s/p cardiac arrest: - Initial ABG: PH: 7.10; Lactate 6.9, P02 - 45, Bicarb 13.7 - repeat ABG improved; pH: 7.47 with resp alkalosis - Intubated, vent settings in the morning are FIO2 100%, PEEP 8, rate 28, tidal vol 400, Precedex Sedation - bicarb drip was stopped per ICU - patient was weaned off of Norepinephrine drip - CXR-extensive interstitial prominence predominantly within the upper lobes R>L - Lower extremity venous duplex- pending - urine cultures positive- gram negative veena and gram positive cocci - blood cultures negative after 24 ho - sputum cultures pending - abx zosyn and vanco given - pulm, Dr. Nixon is following 2. Sepsis: - Lactate 6.9 - leukocytosis of 17.7 today, previously 23.4 - urine cultures positive- gram negative veena and gram positive cocci - blood cultures negative after 24 ho - sputum cultures pending - CXR: extensive interstitial prominence predominantly within the upper lobes reflects R>L - currently on zosyn doxycylcine - hold cefepime 2/2 to increased seizure threshold - IVF restriction due to CHF - ID, Dr. Mata following - procalcitonin ordered 3. NSTEMI: - EKG - inferolateral ST depressions (please see full report) - Troponin trending up, last trop was 47 - Pro-BNP; 4190 - [place] Foreman, Dr. Gibson, following - Heparin drip - patient went to cardiac cath; unsuccessful for PTCA of 95% proximal circumflex , and 50% mid left LAD - will need to transfer to [facility] 4. possible seizure - Head CT - generalized atrophy; nonspecific white matter changes; limited study (please see full report) - Neurologist, Dr. Shania Guerra following - cont keppra - EEG ordered - patient currently on precedex 2/2 intubation 5. elevated LFTs - most likely secondary to cardiac arrest - GI, Dr. Garcia consulted 6. hyperglycemia - on ISSS, increased to med - H/O DM - cont to monitor 7. Prophylactic Measures: GI: Protonix 40 mg IV qd DVT: Heparin drip
--- NOTE | 2016-06-20 14:55 | CP.PCM.CON ---
History of Present Illness - History of Present Illness History of Present Illness: 85 year old female with PMH of HTN, DM, obesity with BMI 33 was brought in to [facility] after the patient was noted to have 2 episodes of convulsions following complaints of shortness of breath from the patient. Prior to this episode, the patient was apparently treated for acute bronchitis with Zithromax about 2 weeks ago. After the convulsions, the patient was noted to be unresponsive and EMS immediately brought the patient on an ambulance, where apparently the patient had cardiorespiratory arrest but was revived. In the ED, she was immediately intubated and placed on the ventilator and sent to the ICU. She was noted to be hypothermic initially and WBC count was elevated. Infectious Diseases consult is requested to further evaluate and manage. Review of systems is unobtainable because of the patient's mental status and is intubated. Review of Systems - Review of Systems Systems not reviewed;Unavailable: Intubated Past Patient History - Past Medical History & Family History Past Medical History?: Yes Past Family History: Reviewed and not pertinent - Past Social History Smoking Status: Former Smoker Alcohol: None - CARDIAC Hx Hypertension: Yes - HEENT Hx Cataracts: Yes - ENDOCRINE/METABOLIC Hx Diabetes Mellitus Type 2: Yes - MUSCULOSKELETAL/RHEUMATOLOGICAL Hx Falls: No - PSYCHIATRIC Hx Substance Use: No - SURGICAL HISTORY Hx Cardiac Catheterization: Yes - ANESTHESIA Hx Anesthesia: Yes Hx Anesthesia Reactions: No Hx Malignant Hyperthermia: No Meds Allergies/Adverse Reactions: Allergies Allergy/AdvReac Type Severity Reaction Status Date / Time No Known Allergies Allergy Verified 05/31/16 12:55 - Medications Medications: Current Medications Aspirin (Aspirin) 325 mg PO DAILY [facility] Last Admin: 06/20/16 09:10 Dose: 325 mg Atorvastatin Calcium (Lipitor) 20 mg PO DIN [facility] Last Admin: 06/19/16 16:14 Dose: 20 mg Clopidogrel Bisulfate (Plavix) 75 mg PO DAILY [facility] Last Admin: 06/20/16 09:00 Dose: 75 mg Norepinephrine Bitartrate 4 mg (/ Dextrose) 254 mls @ 15.24 mls/hr IV .[id number] PRN; Protocol; 4 MCG/MIN PRN Reason: TITRATE PER MD ORDER Last Admin: 06/19/16 20:30 Dose: 15.24 mls/hr Vancomycin HCl (Vancomycin 1gm) 250 mls @ 167 mls/hr IVPB Q12 MICHAEL PRN Reason: Protocol Last Admin: 06/20/16 09:42 Dose: 167 mls/hr Dexmedetomidine HCl (Precedex 4 Mcg/Ml (100 Ml)) 100 mls @ 4.15 mls/hr IV .Q24H PRN; Protocol; 0.2 MCG/KG/HR PRN Reason: Agitation Last Admin: 06/20/16 09:56 Dose: 4.15 mls/hr Heparin Sodium/Sodium Chloride (Heparin 95163 Units/250ml 1/2 Normal Saline) 250 mls @ 9.961 mls/hr IV .Q24H MICHAEL; 12 UNITS/KG/HR PRN Reason: Protocol Last Titration: 06/20/16 05:45 Dose: 9.63 units/kg/hr Levetiracetam (Keppra 500mg Ivpb) 100 mls @ 400 mls/hr IV Q12 MICHAEL Last Admin: 06/20/16 09:39 Dose: 400 mls/hr Insulin Human Regular (Humulin R Med) 0 units SC ACHS MICHAEL PRN Reason: Protocol Pantoprazole Sodium (Protonix Inj) 40 mg IVP DAILY [facility]EL Last Admin: 06/20/16 09:42 Dose: 40 mg Sodium Bicarbonate (Sodium Bicarbonate (8.4%) 50 Meq Syringe) 50 meq IVP Q5MIN MICHAEL Stop: 06/20/16 15:16 Last Admin: 06/19/16 16:09 Dose: 50 meq Physical Exam - Constitutional Appears: Other (Intubated, grimaces with painful stimuli) - ENT Exam Additional comments: ET tube in place - Cardiovascular Exam Cardiovascular Exam: +S1, +S2 - GI/Abdominal Exam GI & Abdominal Exam: Soft. absent: Tenderness Results - Vital Signs Recent Vital Signs: Last Vital Signs Temp 96.7 F L 06/19/16 22:00 Pulse 48 L 06/20/16 07:50 Resp 33 H 06/19/16 17:55 BP 109/31 L 06/19/16 17:55 Pulse Ox 98 06/19/16 14:42 - Labs Result Diagrams: 06/20/16 05:45 06/20/16 05:45 Labs: Laboratory Results - last 24 hr 06/19/16 06/19/16 06/19/16 16:50 17:35 18:00 WBC RBC Hgb Hct MCV MCH MCHC RDW Plt Count MPV Gran % Lymph % (Auto) [place] % (Auto) Eos % (Auto) Baso % (Auto) Gran # Lymph # [place] # Eos # Baso # APTT pCO2 41 pO2 58.0 L 28 L HCO3 20.6 L ABG pH 7.31 L ABG Total CO2 21.9 L ABG O2 Saturation 91.3 L ABG Base Excess -5.4 L ABG Potassium 4.2 VBG pH 7.29 L VBG pCO2 40.0 VBG HCO3 19.2 L VBG Total CO2 20.4 L VBG O2 Sat (Calc) 53.6 VBG Base Excess -7.0 L VBG Potassium 4.0 Sodium 141.0 143.0 Chloride 115.0 H 114.0 H Glucose 398 H 391 H Lactate 2.9 H 3.6 H Mechanical Rate 28 FiO2 100.0 21.0 Tidal Volume 400 PEEP 5 Potassium Carbon Dioxide Anion Gap BUN Creatinine Est GFR ( Amer) Est GFR (Non-Af Amer) POC Glucose (mg/dL) Random Glucose Calcium Phosphorus Magnesium Total Bilirubin AST ALT Alkaline Phosphatase Troponin I 5.06 H* D Total Protein Albumin Globulin Albumin/Globulin Ratio Arterial Blood Potassium 4.2 Venous Blood Potassium 4.0 06/19/16 06/19/16 06/19/16 21:30 22:00 23:56 WBC RBC Hgb Hct MCV MCH MCHC RDW Plt Count MPV Gran % Lymph % (Auto) [place] % (Auto) Eos % (Auto) Baso % (Auto) Gran # Lymph # [place] # Eos # Baso # APTT 55.5 H pCO2 pO2 25 L HCO3 ABG pH ABG Total CO2 ABG O2 Saturation ABG Base Excess ABG Potassium VBG pH 7.29 L VBG pCO2 47.0 VBG HCO3 22.6 VBG Total CO2 24.0 VBG O2 Sat (Calc) 44.5 VBG Base Excess -4.2 L VBG Potassium 4.6 Sodium 141.0 Chloride 107.0 Glucose 443 H* Lactate 3.8 H Mechanical Rate FiO2 21.0 Tidal Volume PEEP Potassium Carbon Dioxide Anion Gap BUN Creatinine Est GFR ( Amer) Est GFR (Non-Af Amer) POC Glucose (mg/dL) 354 H Random Glucose Calcium Phosphorus Magnesium Total Bilirubin AST ALT Alkaline Phosphatase Troponin I Total Protein Albumin Globulin Albumin/Globulin Ratio Arterial Blood Potassium Venous Blood Potassium 4.6 06/20/16 06/20/16 06/20/16 01:30 05:26 05:45 WBC 17.7 H D RBC 3.83 Hgb 11.3 L Hct 33.9 L MCV 88.5 MCH 29.5 MCHC 33.3 RDW 13.5 Plt Count 183 MPV 11.9 H Gran % 88.2 H Lymph % (Auto) 6.7 L [place] % (Auto) 5.0 Eos % (Auto) 0.0 L Baso % (Auto) 0.1 Gran # 15.61 H Lymph # 1.2 [place] # 0.9 H Eos # 0.0 Baso # 0.02 APTT 88.5 H* pCO2 pO2 HCO3 ABG pH ABG Total CO2 ABG O2 Saturation ABG Base Excess ABG Potassium VBG pH VBG pCO2 VBG HCO3 VBG Total CO2 VBG O2 Sat (Calc) VBG Base Excess VBG Potassium Sodium 142 Chloride 107 Glucose Lactate Mechanical Rate FiO2 Tidal Volume PEEP Potassium 3.9 Carbon Dioxide 24 Anion Gap 15 BUN 25 H Creatinine 1.4 Est GFR ( Amer) 43 Est GFR (Non-Af Amer) 36 POC Glucose (mg/dL) 423 H* Random Glucose 398 H* Calcium 7.6 L Phosphorus 2.4 L Magnesium 1.3 L Total Bilirubin 0.9 AST 365 H ALT 106 H Alkaline Phosphatase 108 Troponin I 47.10 H* D Total Protein 5.4 L Albumin 2.6 L Globulin 2.8 Albumin/Globulin Ratio 0.9 L Arterial Blood Potassium Venous Blood Potassium 06/20/16 09:43 WBC RBC Hgb Hct MCV MCH MCHC RDW Plt Count MPV Gran % Lymph % (Auto) [place] % (Auto) Eos % (Auto) Baso % (Auto) Gran # Lymph # [place] # Eos # Baso # APTT pCO2 28 L pO2 66.0 L HCO3 20.4 L ABG pH 7.47 H ABG Total CO2 21.3 L ABG O2 Saturation 96.5 ABG Base Excess -2.0 ABG Potassium 4.2 VBG pH VBG pCO2 VBG HCO3 VBG Total CO2 VBG O2 Sat (Calc) VBG Base Excess VBG Potassium Sodium 141.0 Chloride 115.0 H Glucose 388 H Lactate 2.6 H Mechanical Rate 28 FiO2 100.0 Tidal Volume 400 PEEP 8 Potassium Carbon Dioxide Anion Gap BUN Creatinine Est GFR ( Amer) Est GFR (Non-Af Amer) POC Glucose (mg/dL) Random Glucose Calcium Phosphorus Magnesium Total Bilirubin AST ALT Alkaline Phosphatase Troponin I Total Protein Albumin Globulin Albumin/Globulin Ratio Arterial Blood Potassium 4.2 Venous Blood Potassium Assessment & Plan - Assessment and Plan (Free Text) Plan: Assessment Systemic Inflammatory Response Syndrome, consider secondary to acute stressful event (apparent seizure episodes with cardiorespiratory arrest), consider sepsis secondary to aspiration pneumonitis as well Acute renal failure HTN DM obesity with BMI 33 Plan Started patient on Azactam (because of concern for seizures), a dose of IV Vancomycin and Clindamycin pending blood, sputum cx, urine cx, PCT; reviewed CXR ; reviewed Dr. Nixon's evaluation Follow up results of the Cardiac cath Will follow clinically
--- NOTE | 2016-06-20 15:15 | RAD ---
HISTORY: ETT COMPARISON: 06/19/2016 FINDINGS: LUNGS: Extensive bilateral pulmonary opacity, right greater than left. There is decrease in the density of the left upper opacity when compared to the prior examination. Findings may reflect pneumonia or pulmonary edema. PLEURA: Small bilateral pleural effusion. No pneumothorax. CARDIOVASCULAR: Normal heart size. ET tube unchanged in position. New NG tube extends to upper abdomen. OSSEOUS STRUCTURES: No significant abnormalities. VISUALIZED UPPER ABDOMEN: Normal. OTHER FINDINGS: None. IMPRESSION: Extensive bilateral pulmonary opacity with some improvement in the left upper lobe compared to prior examination. Small bilateral pleural effusion. Lines and tubes unchanged.
[2016-06-20] MEDS: Aztreonam 1 Gm in NS 100mL 100 ML IVPB SCH ×2 (17:02→22:34)
[2016-06-20] MEDS: DOBUTamine 500mg/250ml D5W 250 ML IV PRN (17:09)
--- NOTE | 2016-06-20 20:13 | US ---
HISTORY: Leg pain and swelling. Evaluate for DVT PHYSICIAN(S): Parish Estrella MD. TECHNIQUE: Duplex sonography and color-flow Doppler with graded compression were used to evaluate the deep venous systems of both lower extremities. The exam is somewhat limited by edema. FINDINGS: The visualized deep venous systems of both lower extremities are sonographically normal and compressible. Normal wave forms and augmentation are seen. There is no sonographic evidence for deep venous thrombosis in the visualized segments of both lower extremities. IMPRESSION: No sonographic evidence for deep venous thrombosis in the visualized segments of both lower extremities.
[2016-06-20] MEDS: Heparin25000 units/250ml 1/2NS 250 ML IV SCH (20:30)
--- NOTE | 2016-06-20 21:03 | CARD ---
APPROVED REPORT EKG Measurement Heart [id number] <Conclusion> Sinus bradycardia Nonspecific T wave abnormality Prolonged QT Abnormal ECG
[2016-06-21] MEDS: Dexmedetomidine HCl 4mcg/ml 100 ML IV PRN ×4 (03:49→15:00)
[2016-06-21 06:41] LABS: ADD MANUAL DIFF? NO
[2016-06-21 06:44] LABS: BASO # 0.01 K/mm3 (0.0-2.0); BASO % 0.1 % (0.0-3.0); EOS % 0.1 % (1.5-5.0); GRAN # 11.91 (1.4-6.5); GRAN % 87.1 % (50.0-68.0); HEMATOCRIT 28.8 % (36.0-48.0); LYMPH # 0.9 (1.2-3.4); LYMPH % 6.8 % (22.0-35.0); MEAN CELL VOLUME 87.3 fL (80.0-105.0); MEAN CORPUSCULAR HEMOGLOBIN 29.1 pg (25.0-35.0); MEAN CORPUSCULAR HGB CONC 33.3 g/dl (31.0-37.0); MEAN PLATELET VOLUME 11.5 fl (7.0-11.0); MONO # 0.8 (0.1-0.6); MONO % 5.9 % (1.0-6.0); PLATELET COUNT 177 10^3/uL (120.0-450.0); WHITE BLOOD COUNT 13.7 10^3/ul (4.5-11.0)
[2016-06-21] MEDS: Aztreonam 1 Gm in NS 100mL 100 ML IVPB SCH ×3 (06:45→22:12)
[2016-06-21 07:20] LABS: ALB/GLOB RATIO 0.8 (1.1-1.8); BILIRUBIN,TOTAL 0.5 mg/dL (0.2-1.3); MAGNESIUM 1.2 mg/dL (1.7-2.2); PHOSPHOROUS 3.6 mg/dL (2.5-4.5); POTASSIUM 3.8 mmol/L (3.6-5.0); TOTAL PROTEIN 5.3 g/dL (5.8-8.3)
[2016-06-21] MEDS: levETIRAcetam 500mg IVPB 100 ML IV SCH ×3 (08:51→21:32)
[2016-06-21] MEDS: Insulin Reg-MEDIUM-Coverage SC SCH ×2 (08:53→17:09)
--- NOTE | 2016-06-21 10:35 | CP.PCM.CON ---
<Hakan Mcduffie - Last Filed: 06/21/16 13:22> History of Present Illness - History of Present Illness History of Present Illness: PGY4 GI Fellow Consult Note Patient is an 85yo female with PMHx significant for HTN and DM who was found unresponsive at home. The patient presented to the ED last month with complaints of shortness of breath and was discharged on Prednisone and Zofran. Prior to arrival at our hospital, an ambulance was called as the patient was again short of breath but on arrival, EMS found the patient unresponsive. She subsequently had a cardiac arrest in the hospital parking lot and had ROSC following ACLS protocol. Patient was intubated in the field and admitted to the ICU following ER stabilization. She has remained sedated, intubated and on pressor support since admission. An urgent cardiac catheterization was performed which revealed significant CAD with 95% proximal circumflex and 50% mid LAD occulsions which were not amenable to treatment. Recommended that patient be transferred to [facility] for Rotablator following stabilization. At this juncture it is unclear what her inciting event was but it is presumed to be cardiac in nature. Our service was consulted for elevated LFTs. PMHx: See HPI PSHx: Unknown given patient condition FHx: Unknown given patient condition Social: Former smoker, quit 30 years ago, ~40 pack years Endo: Unknown given patient condition Review of Systems - Review of Systems Systems not reviewed;Unavailable: Acuity of Condition Past Patient History - Past Medical History & Family History Past Medical History?: Yes Past Family History: Reviewed and not pertinent - Past Social History Smoking Status: Former Smoker Alcohol: None - CARDIAC Hx Hypertension: Yes - HEENT Hx Cataracts: Yes - ENDOCRINE/METABOLIC Hx Diabetes Mellitus Type 2: Yes - MUSCULOSKELETAL/RHEUMATOLOGICAL Hx Falls: No - PSYCHIATRIC Hx Substance Use: No - SURGICAL HISTORY Hx Cardiac Catheterization: Yes - ANESTHESIA Hx Anesthesia: Yes Hx Anesthesia Reactions: No Hx Malignant Hyperthermia: No Meds Allergies/Adverse Reactions: Allergies Allergy/AdvReac Type Severity Reaction Status Date / Time No Known Allergies Allergy Verified 05/31/16 12:55 - Medications Medications: Current Medications Aspirin (Ecotrin) 81 mg PO DAILY [facility] Last Admin: 06/21/16 09:00 Dose: 81 mg Atorvastatin Calcium (Lipitor) 20 mg PO DIN [facility] Last Admin: 06/20/16 19:13 Dose: 20 mg Clopidogrel Bisulfate (Plavix) 75 mg PO DAILY [facility] Last Admin: 06/21/16 09:01 Dose: 75 mg Norepinephrine Bitartrate 4 mg (/ Dextrose) 254 mls @ 15.24 mls/hr IV .[id number] PRN; Protocol; 4 MCG/MIN PRN Reason: TITRATE PER MD ORDER Last Titration: 06/20/16 07:00 Dose: 0 mcg/min Dexmedetomidine HCl (Precedex 4 Mcg/Ml (100 Ml)) 100 mls @ 4.15 mls/hr IV .Q24H PRN; Protocol; 0.2 MCG/KG/HR PRN Reason: Agitation Last Admin: 06/21/16 08:49 Dose: 10.376 mls/hr Heparin Sodium/Sodium Chloride (Heparin 05800 Units/250ml 1/2 Normal Saline) 250 mls @ 9.961 mls/hr IV .Q24H [facility]; 12 UNITS/KG/HR PRN Reason: Protocol Last Titration: 06/21/16 10:17 Dose: 9.63 units/kg/hr Levetiracetam (Keppra 500mg Ivpb) 100 mls @ 400 mls/hr IV Q12 [facility] Last Admin: 06/21/16 09:00 Dose: 400 mls/hr Doxycycline Hyclate 100 mg/ (Sodium Chloride) 100 mls @ 100 mls/hr IVPB Q12 [facility] PRN Reason: Protocol Last Admin: 06/21/16 09:07 Dose: 100 mls/hr Aztreonam (Azactam 1 Gm) 100 mls @ 100 mls/hr IVPB Q8 [facility] PRN Reason: Protocol Stop: 06/27/16 14:46 Last Admin: 06/21/16 06:45 Dose: 100 mls/hr Clindamycin Phosphate 600 mg/ (Sodium Chloride) 54 mls @ 102 mls/hr IVPB Q8 [facility] PRN Reason: Protocol Stop: 06/25/16 22:01 Last Admin: 06/21/16 06:19 Dose: 102 mls/hr Dobutamine HCl/Dextrose (Dobutamine/Dextrose 5% 500mg/250ml) 250 mls @ 12.664 mls/hr IV .[id number] PRN; Protocol; 5 MCG/KG/MIN PRN Reason: TITRATE PER PROTOCOL Last Admin: 06/20/16 17:09 Dose: 12.664 mls/hr Insulin Detemir (Levemir) 5 unit SC HS [facility] Insulin Human Regular (Humulin R Med) 0 units SC ACHS [facility] PRN Reason: Protocol Last Admin: 06/21/16 08:53 Dose: 7 units Pantoprazole Sodium (Protonix Inj) 40 mg IVP DAILY [facility] Last Admin: 06/21/16 09:01 Dose: 40 mg Physical Exam - Constitutional Additional comments: sedated, intubated - Eye Exam Pupil Exam: Miosis - ENT Exam ENT Exam: Mucous Membranes Dry Additional comments: ETT in place - Respiratory Exam Respiratory Exam: Clear to Auscultation Bilateral. absent: Rales, Rhonchi, Wheezes Additional comments: B/L air entry - Cardiovascular Exam Cardiovascular Exam: RRR, +S1, +S2 - GI/Abdominal Exam GI & Abdominal Exam: Normal Bowel Sounds, Soft. absent: Distended, Firm, Guarding, Organomegaly, Rigid, Tenderness - Extremities Exam Extremities exam: Positive for: normal inspection. Negative for: pedal edema - Skin Skin Exam: Dry, Warm Results - Vital Signs Recent Vital Signs: Last Vital Signs Temp 96.1 F L 06/21/16 10:00 Pulse 96 H 06/21/16 10:00 Resp 28 H 06/21/16 10:00 BP 135/63 06/21/16 10:00 Pulse Ox 100 06/21/16 10:00 - Labs Result Diagrams: 06/21/16 06:15 06/21/16 06:15 Labs: Laboratory Results - last 24 hr 06/20/16 06/20/16 06/20/16 05:30 05:45 11:46 WBC RBC Hgb Hct MCV MCH MCHC RDW Plt Count MPV Gran % Lymph % (Auto) [place] % (Auto) Eos % (Auto) Baso % (Auto) Gran # Lymph # [place] # Eos # Baso # APTT Sodium Potassium Chloride Carbon Dioxide Anion Gap BUN Creatinine Est GFR ( Amer) Est GFR (Non-Af Amer) POC Glucose (mg/dL) 345 H Random Glucose Hemoglobin A1c 7.7 H Calcium Phosphorus Magnesium Total Bilirubin AST ALT Alkaline Phosphatase Total Protein Albumin Globulin Albumin/Globulin Ratio Procalcitonin 83.98 H 06/20/16 06/20/16 06/20/16 12:16 16:27 21:45 WBC RBC Hgb Hct MCV MCH MCHC RDW Plt Count MPV Gran % Lymph % (Auto) [place] % (Auto) Eos % (Auto) Baso % (Auto) Gran # Lymph # [place] # Eos # Baso # APTT 88.1 H* Sodium Potassium Chloride Carbon Dioxide Anion Gap BUN Creatinine Est GFR ( Amer) Est GFR (Non-Af Amer) POC Glucose (mg/dL) 365 H 330 H Random Glucose Hemoglobin A1c Calcium Phosphorus Magnesium Total Bilirubin AST ALT Alkaline Phosphatase Total Protein Albumin Globulin Albumin/Globulin Ratio Procalcitonin 06/21/16 06/21/16 06/21/16 02:30 06:15 09:30 WBC 13.7 H D RBC 3.30 L Hgb 9.6 L Hct 28.8 L MCV 87.3 MCH 29.1 MCHC 33.3 RDW 14.0 Plt Count 177 MPV 11.5 H Gran % 87.1 H Lymph % (Auto) 6.8 L [place] % (Auto) 5.9 Eos % (Auto) 0.1 L Baso % (Auto) 0.1 Gran # 11.91 H Lymph # 0.9 L [place] # 0.8 H Eos # 0.0 Baso # 0.01 APTT 69.9 H 58.1 H Sodium 141 Potassium 3.8 Chloride 108 H Carbon Dioxide 21 Anion Gap 16 BUN 30 H Creatinine 1.7 H Est GFR ( Amer) 34 Est GFR (Non-Af Amer) 28 POC Glucose (mg/dL) Random Glucose 290 H Hemoglobin A1c Calcium 7.0 L Phosphorus 3.6 Magnesium 1.2 L Total Bilirubin 0.5 AST 184 H ALT 73 H Alkaline Phosphatase 88 Total Protein 5.3 L Albumin 2.4 L Globulin 2.9 Albumin/Globulin Ratio 0.8 L Procalcitonin Assessment & Plan - Assessment and Plan (Free Text) Assessment: Patient is an 85yo female with PMHx significant for HTN and DM who was found unresponsive at home. Pt is s/p cardiac arrest with ROSC following ACLS, emergent intubation and urgent cardiac catheterization. Our service has been consulted for elevated LFTs. -Cardiopulmonary arrest s/p ACLS with ROSC -Acute respiratory failure requiring mechanical ventilation -Abnormal LFTs: suspect 2/2 shock liver in setting of cardiac arrest Plan: -LFT abnormality likely a result of recent AL, cardiopulmonary arrest -Check hepatitis serologies -Abdominal U/S pending, await report -Cardiology, ID and pulmonology following -No further recommendations at this time, will sign off. Please reconsult if needed. - Date & Time Date: 06/21/16 Time: 07:10 <Oli Garcia - Last Filed: 06/21/16 20:42> Meds - Medications Medications: Current Medications Acetaminophen (Tylenol 650 Mg Supp) 650 mg RC Q4H PRN PRN Reason: Fever >100.4 F Aspirin (Ecotrin) 81 mg PO DAILY [facility] Last Admin: 06/21/16 09:00 Dose: 81 mg Atorvastatin Calcium (Lipitor) 20 mg PO DIN [facility] Last Admin: 06/21/16 18:01 Dose: 20 mg Clopidogrel Bisulfate (Plavix) 75 mg PO DAILY [facility] Last Admin: 06/21/16 09:01 Dose: 75 mg Norepinephrine Bitartrate 4 mg (/ Dextrose) 254 mls @ 15.24 mls/hr IV .[id number] PRN; Protocol; 4 MCG/MIN PRN Reason: TITRATE PER MD ORDER Last Titration: 06/20/16 07:00 Dose: 0 mcg/min Dexmedetomidine HCl (Precedex 4 Mcg/Ml (100 Ml)) 100 mls @ 4.15 mls/hr IV .Q24H PRN; Protocol; 0.2 MCG/KG/HR PRN Reason: Agitation Last Admin: 06/21/16 15:00 Dose: 8.301 mls/hr Heparin Sodium/Sodium Chloride (Heparin 90507 Units/250ml 1/2 Normal Saline) 250 mls @ 9.961 mls/hr IV .Q24H [facility]; 12 UNITS/KG/HR PRN Reason: Protocol Last Admin: 06/21/16 18:01 Dose: 8 mls/hr Levetiracetam (Keppra 500mg Ivpb) 100 mls @ 400 mls/hr IV Q12 [facility] Last Admin: 06/21/16 09:00 Dose: 400 mls/hr Doxycycline Hyclate 100 mg/ (Sodium Chloride) 100 mls @ 100 mls/hr IVPB Q12 [facility] PRN Reason: Protocol Last Admin: 06/21/16 09:07 Dose: 100 mls/hr Aztreonam (Azactam 1 Gm) 100 mls @ 100 mls/hr IVPB Q8 [facility] PRN Reason: Protocol Stop: 06/27/16 14:46 Last Admin: 06/21/16 15:00 Dose: 100 mls/hr Clindamycin Phosphate 600 mg/ (Sodium Chloride) 54 mls @ 102 mls/hr IVPB Q8 [facility] PRN Reason: Protocol Stop: 06/25/16 22:01 Last Admin: 06/21/16 17:07 Dose: 102 mls/hr Dobutamine HCl/Dextrose (Dobutamine/Dextrose 5% 500mg/250ml) 250 mls @ 12.664 mls/hr IV .[id number] PRN; Protocol; 5 MCG/KG/MIN PRN Reason: TITRATE PER PROTOCOL Last Admin: 06/21/16 11:15 Dose: 12.664 mls/hr Insulin Human Regular 100 (units/ Sodium Chloride) 100 mls @ 4 mls/hr IV .Q24H PRN; Protocol; 4 UNITS/HR PRN Reason: TITRATE PER MD ORDER Last Titration: 06/21/16 20:15 Dose: 1.5 units/hr Pantoprazole Sodium (Protonix Inj) 40 mg IVP DAILY [facility] Last Admin: 06/21/16 09:01 Dose: 40 mg Results - Vital Signs Recent Vital Signs: Last Vital Signs Temp 99.0 F 06/21/16 18:00 Pulse 83 06/21/16 18:00 Resp 28 H 06/21/16 18:00 BP 131/53 L 06/21/16 18:00 Pulse Ox 98 06/21/16 18:00 - Labs Result Diagrams: 06/21/16 06:15 06/21/16 06:15 Labs: Laboratory Results - last 24 hr 06/20/16 06/21/16 06/21/16 21:45 02:30 06:15 WBC 13.7 H D RBC 3.30 L Hgb 9.6 L Hct 28.8 L MCV 87.3 MCH 29.1 MCHC 33.3 RDW 14.0 Plt Count 177 MPV 11.5 H Gran % 87.1 H Lymph % (Auto) 6.8 L [place] % (Auto) 5.9 Eos % (Auto) 0.1 L Baso % (Auto) 0.1 Gran # 11.91 H Lymph # 0.9 L [place] # 0.8 H Eos # 0.0 Baso # 0.01 APTT 69.9 H pCO2 pO2 HCO3 ABG pH ABG Total CO2 ABG O2 Saturation ABG O2 Content ABG Base Excess ABG Hemoglobin ABG Carboxyhemoglobin POC ABG HHb (Measured) ABG Methemoglobin ABG O2 Capacity Hgb O2 Saturation FiO2 Sodium 141 Potassium 3.8 Chloride 108 H Carbon Dioxide 21 Anion Gap 16 BUN 30 H Creatinine 1.7 H Est GFR ( Amer) 34 Est GFR (Non-Af Amer) 28 POC Glucose (mg/dL) 330 H Random Glucose 290 H Calcium 7.0 L Phosphorus 3.6 Magnesium 1.2 L Total Bilirubin 0.5 AST 184 H ALT 73 H Alkaline Phosphatase 88 Troponin I Total Protein 5.3 L Albumin 2.4 L Globulin 2.9 Albumin/Globulin Ratio 0.8 L Hepatitis A IgM Ab Negative Hep Bs Antigen Negative Hep B Core IgM Ab Negative Hepatitis C Antibody Negative 06/21/16 06/21/16 06/21/16 07:17 09:30 11:21 WBC RBC Hgb Hct MCV MCH MCHC RDW Plt Count MPV Gran % Lymph % (Auto) [place] % (Auto) Eos % (Auto) Baso % (Auto) Gran # Lymph # [place] # Eos # Baso # APTT 58.1 H pCO2 pO2 HCO3 ABG pH ABG Total CO2 ABG O2 Saturation ABG O2 Content ABG Base Excess ABG Hemoglobin ABG Carboxyhemoglobin POC ABG HHb (Measured) ABG Methemoglobin ABG O2 Capacity Hgb O2 Saturation FiO2 Sodium Potassium Chloride Carbon Dioxide Anion Gap BUN Creatinine Est GFR ( Amer) Est GFR (Non-Af Amer) POC Glucose (mg/dL) 340 H 331 H Random Glucose Calcium Phosphorus Magnesium Total Bilirubin AST ALT Alkaline Phosphatase Troponin I Total Protein Albumin Globulin Albumin/Globulin Ratio Hepatitis A IgM Ab Hep Bs Antigen Hep B Core IgM Ab Hepatitis C Antibody 06/21/16 06/21/16 06/21/16 12:42 13:10 15:13 WBC RBC Hgb Hct MCV MCH MCHC RDW Plt Count MPV Gran % Lymph % (Auto) [place] % (Auto) Eos % (Auto) Baso % (Auto) Gran # Lymph # [place] # Eos # Baso # APTT pCO2 28 L pO2 57.0 L HCO3 19.9 L ABG pH 7.46 H ABG Total CO2 20.8 L ABG O2 Saturation 92.0 L ABG O2 Content 12.2 L ABG Base Excess -3.1 L ABG Hemoglobin 9.7 L ABG Carboxyhemoglobin 2.0 H POC ABG HHb (Measured) 7.8 H ABG Methemoglobin 0.7 ABG O2 Capacity 13.3 L Hgb O2 Saturation 89.5 L FiO2 50.0 Sodium Potassium Chloride Carbon Dioxide Anion Gap BUN Creatinine Est GFR ( Amer) Est GFR (Non-Af Amer) POC Glucose (mg/dL) 238 H Random Glucose Calcium Phosphorus Magnesium Total Bilirubin AST ALT Alkaline Phosphatase Troponin I 44.00 H* Total Protein Albumin Globulin Albumin/Globulin Ratio Hepatitis A IgM Ab Hep Bs Antigen Hep B Core IgM Ab Hepatitis C Antibody 06/21/16 06/21/16 06/21/16 16:00 16:08 17:01 WBC RBC Hgb Hct MCV MCH MCHC RDW Plt Count MPV Gran % Lymph % (Auto) [place] % (Auto) Eos % (Auto) Baso % (Auto) Gran # Lymph # [place] # Eos # Baso # APTT 54.9 H pCO2 pO2 HCO3 ABG pH ABG Total CO2 ABG O2 Saturation ABG O2 Content ABG Base Excess ABG Hemoglobin ABG Carboxyhemoglobin POC ABG HHb (Measured) ABG Methemoglobin ABG O2 Capacity Hgb O2 Saturation FiO2 Sodium Potassium Chloride Carbon Dioxide Anion Gap BUN Creatinine Est GFR ( Amer) Est GFR (Non-Af Amer) POC Glucose (mg/dL) 230 H 191 H Random Glucose Calcium Phosphorus Magnesium Total Bilirubin AST ALT Alkaline Phosphatase Troponin I Total Protein Albumin Globulin Albumin/Globulin Ratio Hepatitis A IgM Ab Hep Bs Antigen Hep B Core IgM Ab Hepatitis C Antibody 06/21/16 06/21/16 18:12 20:14 WBC RBC Hgb Hct MCV MCH MCHC RDW Plt Count MPV Gran % Lymph % (Auto) [place] % (Auto) Eos % (Auto) Baso % (Auto) Gran # Lymph # [place] # Eos # Baso # APTT pCO2 pO2 HCO3 ABG pH ABG Total CO2 ABG O2 Saturation ABG O2 Content ABG Base Excess ABG Hemoglobin ABG Carboxyhemoglobin POC ABG HHb (Measured) ABG Methemoglobin ABG O2 Capacity Hgb O2 Saturation FiO2 Sodium Potassium Chloride Carbon Dioxide Anion Gap BUN Creatinine Est GFR ( Amer) Est GFR (Non-Af Amer) POC Glucose (mg/dL) 152 H 135 H Random Glucose Calcium Phosphorus Magnesium Total Bilirubin AST ALT Alkaline Phosphatase Troponin I Total Protein Albumin Globulin Albumin/Globulin Ratio Hepatitis A IgM Ab Hep Bs Antigen Hep B Core IgM Ab Hepatitis C Antibody Attending/Attestation - Attestation I have personally seen and examined this patient.: Yes I have fully participated in the care of the patient.: Yes I have reviewed all pertinent clinical information: Yes Notes (Text): 06/21/16 20:39 85 year old female with h/o HTN, DM who presented with cardiac arrest and acute AL, currently critically ill in ICU, also with abnormal LFTs. 1. Elevated LFTs 2. Fatty liver 3. Cholelithiasis Plan: -mildly elevated AST>>ALT -AST can rise in the setting of muscle injury and may not be liver specific -alk phos/bili normal -lfts are downtrending -viral hepatitis serologies negative -fatty liver noted on US -gallstones, asymptomatic noted on US -patient awaiting transfer for further cardiac evaluation and treatment -will sign off at this time, but please contact with questions
--- NOTE | 2016-06-21 10:36 | PN ---
DATE: 06/21/2016 SUBJECTIVE: The patient remains on the ventilator. She is currently sedated. PHYSICAL EXAMINATION: VITAL SIGNS: Temperature is 97.0, pulse 75, respirations 28/28, blood pressure 126/64. HEENT: Normocephalic, atraumatic. NECK: Positive JVD. CARDIOVASCULAR: Systolic ejection murmur at the lower left sternal border. Positive S3 gallop. LUNGS: Crackles at both lower lobes. Less rhonchi. No wheezing. EXTREMITIES: Mild edema. No cyanosis, no clubbing. GASTROINTESTINAL: Abdomen is soft, nondistended. Bowel sounds are positive. SKIN: No acute rash. NEUROLOGIC: Limited at the present time. PERTINENT LABORATORY DATA: Chest x-ray was done this morning and reviewed. This morning's x-ray is slightly improved - with partial clearing of the pulmonary infiltrates. Arterial blood gas has been ordered for the morning - not in the computer at the present time. IMPRESSION: 1. Respiratory failure. 2. Status post cardiopulmonary resuscitation. 3. Acute congestive heart failure. 4. Acute myocardial infarction. 5. Pneumonia, rule out aspiration. 6. History of coronary artery disease. 7. Chronic obstructive pulmonary disease. 8. Diabetes mellitus. PLAN: The patient remains on the ventilator. She is currently sedated. I did discuss the case with the night nurse at length. The night nurse stated that the patient is not doing well overall. The patient did go to the cardiac catheterization lab yesterday with Dr. Urias. Dr. Urias's input is noted. I did review the chest x-ray as above. The x-ray is somewhat improved-- with partial clearing of the pulmonary infiltrates. Again, I have ordered an arterial blood gas for the morning - not in the computer at the present time. Procalcitonin level was done yesterday - and is very elevated. I would continue with the antibiotic coverage, as per infectious disease. Input by Dr. Mata is noted. Leukocytosis is much improved/decreased. Clinical status of the patient is somewhat improved - compared to yesterday. However, unfortunately, the overall status/prognosis of this patient remains poor. I will discuss the above with the entire ICU team in the next few moments. I will also discuss the above with Dr. Wheeler later this morning. Mandeep Nixon MD cc: [phone] TT: 06/21/2016 10:35:47 Confirmation # [id number] Dictation # [id number] MTDD
[2016-06-21] MEDS: DOBUTamine 500mg/250ml D5W 250 ML IV PRN (11:15)
--- NOTE | 2016-06-21 11:28 | RAD ---
HISTORY: f/u COMPARISON: Comparison is made to the previous study dated 06/20/2016 FINDINGS: LUNGS: Interval mild improvement in the lungs since the previous exam. The ET tube is seen at appropriate position. PLEURA: Small bilateral pleural effusions are again noted. CARDIOVASCULAR: The cardiac silhouette is upper normal in size. OSSEOUS STRUCTURES: No significant abnormalities. VISUALIZED UPPER ABDOMEN: The NG tube seen extending to the abdomen. OTHER FINDINGS: None. IMPRESSION: Interval mild improvement in the lungs since the previous exam. Appropriate position of the support devices.
--- NOTE | 2016-06-21 11:40 | PN ---
DATE: 06/21/2016 The patient is lying in the bed, on a ventilator, mildly sedated. PHYSICAL EXAMINATION: VITAL SIGNS: Her blood pressure is 135/63, heart rate is 96 per minute, breathing at a rate of 28 pe r minute and temperature is 96.1 degrees Fahrenheit. HEENT: Head is normocephalic, atraumatic. NECK: Supple. There are no carotid bruits. LUNGS: Clear. CARDIOVASCULAR: S1, S2 audible. No murmurs. ABDOMEN: Soft and nontender. Bowel sounds are present. NEUROLOGIC EXAMINATION: MENTAL STATUS: The patient is lightly sedated, does not respond to verbal or noxious painful stimuli . CRANIAL NERVES: Pupils are 4 mm bilaterally reactive to light. Positive doll's eye, positive cornea l reflex. MOTOR: Tone is decreased in all 4 extremities. There is no withdrawal of extremities to noxious ashley nful stimuli. Plantars with no response. LABORATORY DATA: Reviewed, shows WBC of 13.7, hemoglobin 9.6, hematocrit 28.8, and platelets of 177. Sodium is 141, potassium 3.8, chloride 108, carbon dioxide content of 21, BUN of 30, creatinine of 1.7 and glucose of 290. IMPRESSION: 1. Hypoxic encephalopathy, status post cardiac arrest. 2. Respiratory failure. 3. Seizures. RECOMMENDATIONS: 1. The patient had an electroencephalogram which shows severe bihemispheric cerebral dysfunction. 2. The patient had no further seizure activity noted. 3. The patient to be continued on Keppra. 4. The patient's prognosis is guarded to poor. 5. Please continue supportive care and other treatment. Thank you for the opportunity to participate in the care of this patient. Valerie Guerra MD cc: [id number] TT: 06/21/2016 11:39:00 Confirmation # [id number] Dictation # [id number] [id number]
[2016-06-21] MEDS ORDERED: Vancomycin 1gm in NS 250ml 250 ML IVPB STA (11:51)
--- NOTE | 2016-06-21 11:59 | CP.PCM.PN ---
Subjective - Date & Time of Evaluation Date of Evaluation: 06/21/16 Time of Evaluation: 08:10 - Subjective Subjective: Patient continues to be on the ventilator, sedated Objective - Vital Signs/Intake and Output Vital Signs (last 24 hours): Temp Pulse Resp BP Pulse Ox 97 F L 73 32 H 126/64 93 L 06/21/16 04:00 06/21/16 03:00 06/20/16 23:36 06/20/16 23:36 06/20/16 17:59 Intake and Output: 06/21/16 06/21/16 06:59 18:59 Intake Total 1672 Output Total 200 Balance 1472 - Medications Medications: Current Medications Aspirin (Ecotrin) 81 mg PO DAILY [facility] Atorvastatin Calcium (Lipitor) 20 mg PO DIN [facility] Last Admin: 06/20/16 19:13 Dose: 20 mg Clopidogrel Bisulfate (Plavix) 75 mg PO DAILY [facility] Last Admin: 06/20/16 09:00 Dose: 75 mg Norepinephrine Bitartrate 4 mg (/ Dextrose) 254 mls @ 15.24 mls/hr IV .[id number] PRN; Protocol; 4 MCG/MIN PRN Reason: TITRATE PER MD ORDER Last Titration: 06/20/16 07:00 Dose: 0 mcg/min Dexmedetomidine HCl (Precedex 4 Mcg/Ml (100 Ml)) 100 mls @ 4.15 mls/hr IV .Q24H PRN; Protocol; 0.2 MCG/KG/HR PRN Reason: Agitation Last Admin: 06/21/16 03:49 Dose: 14.526 mls/hr Heparin Sodium/Sodium Chloride (Heparin 31891 Units/250ml 1/2 Normal Saline) 250 mls @ 9.961 mls/hr IV .Q24H [facility]; 12 UNITS/KG/HR PRN Reason: Protocol Last Admin: 06/20/16 20:30 Dose: 8 mls/hr Levetiracetam (Keppra 500mg Ivpb) 100 mls @ 400 mls/hr IV Q12 [facility] Last Admin: 06/20/16 21:35 Dose: 400 mls/hr Doxycycline Hyclate 100 mg/ (Sodium Chloride) 100 mls @ 100 mls/hr IVPB Q12 [facility] PRN Reason: Protocol Last Admin: 06/20/16 22:00 Dose: 100 mls/hr Aztreonam (Azactam 1 Gm) 100 mls @ 100 mls/hr IVPB Q8 [facility] PRN Reason: Protocol Stop: 06/27/16 14:46 Last Admin: 06/21/16 06:45 Dose: 100 mls/hr Clindamycin Phosphate 600 mg/ (Sodium Chloride) 54 mls @ 102 mls/hr IVPB Q8 [facility] PRN Reason: Protocol Stop: 06/25/16 22:01 Last Admin: 06/21/16 06:19 Dose: 102 mls/hr Dobutamine HCl/Dextrose (Dobutamine/Dextrose 5% 500mg/250ml) 250 mls @ 12.664 mls/hr IV .[id number] PRN; Protocol; 5 MCG/KG/MIN PRN Reason: TITRATE PER PROTOCOL Last Admin: 06/20/16 17:09 Dose: 12.664 mls/hr Insulin Human Regular (Humulin R Med) 0 units SC ACHS [facility] PRN Reason: Protocol Last Admin: 06/20/16 21:52 Dose: 2 units Pantoprazole Sodium (Protonix Inj) 40 mg IVP DAILY [facility] Last Admin: 06/20/16 09:42 Dose: 40 mg - Labs Labs: 06/21/16 06:15 06/21/16 06:15 PT 11.6 Seconds (9.9-11.8) 06/19/16 13:30 INR 1.07 (0.93-1.08) 06/19/16 13:30 APTT 69.9 Seconds (23.7-30.8) H 06/21/16 02:30 - Constitutional Appears: Other (Intubated and sedated) - Head Exam Head Exam: NORMAL INSPECTION - ENT Exam Additional comments: ET tube in place - Neck Exam Neck Exam: absent: Meningismus - Respiratory Exam Respiratory Exam: Decreased Breath Sounds, Rales (scattered) - Cardiovascular Exam Cardiovascular Exam: +S1, +S2 - GI/Abdominal Exam GI & Abdominal Exam: Soft. absent: Tenderness Assessment and Plan - Assessment and Plan (Free Text) Plan: Assessment Systemic Inflammatory Response Syndrome, consider secondary to acute stressful event (apparent seizure episodes with cardiorespiratory arrest), consider sepsis secondary to aspiration pneumonitis as well; R/O UTI with Klebsiella, in patient also with congestive heart failure Acute renal failure HTN DM obesity with BMI 33 Plan continue Azactam (because of concern for seizures), and continue intermittent IV Vancomycin; PCT is elevated; reviewed CXR; reviewed Dr. Nixon's evaluation as well Follow up results of the Cardiac cath Will follow clinically Overally prognosis is poor
--- NOTE | 2016-06-21 12:07 | CP.PCM.PN ---
Subjective - Date & Time of Evaluation Date of Evaluation: 06/21/16 Time of Evaluation: 11:00 - Subjective Subjective: PGY-1 Medicine progress Patient seen and examined at bedside in the ICU. Patient is intubated with vent settings of FIO2 100%, PEEP 8, rate 28, tidal vol 400 and Precedex for sedation. Nurse reports no acute events overnight. 300 cc urinary output over 24 hours. Patient is on dobutamine. Patient is unresponsive. Objective - Vital Signs/Intake and Output Vital Signs (last 24 hours): Temp Pulse Resp BP Pulse Ox 96.1 F L 74 25 H 137/90 95 06/21/16 10:00 06/21/16 11:00 06/21/16 11:00 06/21/16 11:00 06/21/16 11:00 Intake and Output: 06/21/16 06/21/16 06:59 18:59 Intake Total 1672 Output Total 200 Balance 1472 - Medications Medications: Current Medications Aspirin (Ecotrin) 81 mg PO DAILY [facility] Last Admin: 06/21/16 09:00 Dose: 81 mg Atorvastatin Calcium (Lipitor) 20 mg PO DIN [facility] Last Admin: 06/20/16 19:13 Dose: 20 mg Clopidogrel Bisulfate (Plavix) 75 mg PO DAILY [facility] Last Admin: 06/21/16 09:01 Dose: 75 mg Norepinephrine Bitartrate 4 mg (/ Dextrose) 254 mls @ 15.24 mls/hr IV .[id number] PRN; Protocol; 4 MCG/MIN PRN Reason: TITRATE PER MD ORDER Last Titration: 06/20/16 07:00 Dose: 0 mcg/min Dexmedetomidine HCl (Precedex 4 Mcg/Ml (100 Ml)) 100 mls @ 4.15 mls/hr IV .Q24H PRN; Protocol; 0.2 MCG/KG/HR PRN Reason: Agitation Last Admin: 06/21/16 11:16 Dose: 4.15 mls/hr Heparin Sodium/Sodium Chloride (Heparin 19333 Units/250ml 1/2 Normal Saline) 250 mls @ 9.961 mls/hr IV .Q24H MICHAEL; 12 UNITS/KG/HR PRN Reason: Protocol Last Titration: 06/21/16 10:17 Dose: 9.63 units/kg/hr Levetiracetam (Keppra 500mg Ivpb) 100 mls @ 400 mls/hr IV Q12 [facility]HAEL Last Admin: 06/21/16 09:00 Dose: 400 mls/hr Doxycycline Hyclate 100 mg/ (Sodium Chloride) 100 mls @ 100 mls/hr IVPB Q12 MICHAEL PRN Reason: Protocol Last Admin: 06/21/16 09:07 Dose: 100 mls/hr Aztreonam (Azactam 1 Gm) 100 mls @ 100 mls/hr IVPB Q8 MICHAEL PRN Reason: Protocol Stop: 06/27/16 14:46 Last Admin: 06/21/16 06:45 Dose: 100 mls/hr Clindamycin Phosphate 600 mg/ (Sodium Chloride) 54 mls @ 102 mls/hr IVPB Q8 MICHAEL PRN Reason: Protocol Stop: 06/25/16 22:01 Last Admin: 06/21/16 06:19 Dose: 102 mls/hr Dobutamine HCl/Dextrose (Dobutamine/Dextrose 5% 500mg/250ml) 250 mls @ 12.664 mls/hr IV .[id number] PRN; Protocol; 5 MCG/KG/MIN PRN Reason: TITRATE PER PROTOCOL Last Admin: 06/21/16 11:15 Dose: 12.664 mls/hr Vancomycin HCl (Vancomycin 1gm) 250 mls @ 167 mls/hr IVPB STAT STA PRN Reason: Protocol Stop: 06/21/16 13:20 Insulin Detemir (Levemir) 5 unit SC HS MICHAEL Insulin Human Regular (Humulin R Med) 0 units SC ACHS MICHAEL PRN Reason: Protocol Last Admin: 06/21/16 08:53 Dose: 7 units Pantoprazole Sodium (Protonix Inj) 40 mg IVP DAILY [facility] Last Admin: 06/21/16 09:01 Dose: 40 mg - Labs Labs: 06/21/16 06:15 06/21/16 06:15 PT 11.6 Seconds (9.9-11.8) 06/19/16 13:30 INR 1.07 (0.93-1.08) 06/19/16 13:30 APTT 58.1 Seconds (23.7-30.8) H 06/21/16 09:30 - Constitutional Appears: No Acute Distress - Head Exam Head Exam: ATRAUMATIC, NORMOCEPHALIC - Eye Exam Eye Exam: Normal appearance Pupil Exam: Miosis - ENT Exam ENT Exam: Mucous Membranes Moist - Respiratory Exam Respiratory Exam: Clear to Ausculation Bilateral. absent: Rhonchi, Wheezes Additional comments: Patient is intubated - Cardiovascular Exam Cardiovascular Exam: REGULAR RHYTHM. absent: Tachycardia, Murmur - GI/Abdominal Exam GI & Abdominal Exam: Soft, Normal Bowel Sounds. absent: Distended, Firm, Tenderness - Extremities Exam Extremities Exam: Normal Inspection. absent: Pedal Edema - Neurological Exam Additional comments: patient is sedated on precedex - Skin Skin Exam: Dry, Intact, Normal Color, Warm Assessment and Plan - Assessment and Plan (Free Text) Assessment: 85yo female with PMH of DM, HTN, bronchitis present with hypoxemic respiratory failure with metabolic acidosis, NSTEMI, sepsis and possible seizure. Patient is intubated, repeat ABG improved; pH: 7.47 with resp alkalosis, on Precedex for sedation. Cardiac cath was unsuccessful for PTCA of 95% proximal circumflex , and 50% mid left LAD, will need to transfer to [facility]. Continue ICU management. Plan: 1. Hypoxemic Respiratory Failure with metabolic acidosis s/p cardiac arrest: - repeat ABG improved; pH: 7.47 with resp alkalosis - Intubated, vent settings in the morning are FIO2 100%, PEEP 8, rate 28, tidal vol 400, Precedex Sedation - patient was weaned off of Norepinephrine drip, currently on dobutamine - CXR-extensive interstitial prominence predominantly within the upper lobes R>L - Lower extremity venous duplex- negative - urine cultures positive- klebsiella pneumoniae and aerococcus viridans - blood cultures negative after 24 ho - sputum cultures pending - abx aztreonam, clindamycin, doxycycline - pulm, Dr. Nixon is following 2. Sepsis: - Lactate 6.9 - leukocytosis of 13.7 - procalcitonin is elevtaed, 83.98 - urine cultures positive- klebsiella pneumoniae and aerococcus viridans - blood cultures negative after 24 ho - sputum cultures pending - CXR: extensive interstitial prominence predominantly within the upper lobes reflects R>L - currently on aztreonam, clindamycin, doxycycline - IVF restriction due to CHF, on 04/04 NS @50 - ID, Dr. Mata following 3. NSTEMI: - EKG - inferolateral ST depressions (please see full report) - Troponin trending up, last trop was 47 - Pro-BNP; 4190 - Refrigerator Cabinetmaker, Dr. Gibson, following - Heparin drip - patient went to cardiac cath; unsuccessful for PTCA of 95% proximal circumflex , and 50% mid left LAD - will need to transfer to [facility] 4. possible seizure - Head CT - generalized atrophy; nonspecific white matter changes; limited study (please see full report) - Neurologist, Dr. Shania Guerra following - cont keppra - EEG ordered - patient currently on precedex 2/2 intubation 5. elevated LFTs - most likely secondary to cardiac arrest - downtrending - Hepatitis serologies - abd US pending - GIDr. Garcia following 6. hyperglycemia - started levemir 5 units HS - on ISSS, increased to med - H/O DM - cont to monitor 7. Prophylactic Measures: GI: Protonix 40 mg IV qd DVT: Heparin drip
[2016-06-21 12:46] LABS: ARTERIAL BLOOD GAS HCO3 19.9 mmol/L (21-28); ARTERIAL BLOOD GAS O2 CAPACITY 13.3 mL/dl (16-24); ARTERIAL BLOOD GAS O2 CONTENT 12.2 ML/dl (15-23); ARTERIAL BLOOD GAS PH 7.46 (7.35-7.45); ARTERIAL BLOOD HGB O2 SAT 89.5 % (95.0-98.0); HHB 7.8 % (0-5); METHEMOGLOBIN 0.7 % (0.0-3.0)
--- NOTE | 2016-06-21 13:12 | PN ---
DATE: 06/21/2016 The patient seen and examined at bedside. She is off of sedation (Precedex was stopped about 1 hour ago). She is still not waking up and not responding to painful stimuli. Nevertheless, she is doing well on pressure support 08/05[birth year] with her rapid shallow breathing index being 46, tidal volume varies between 350 -400 and respiratory rate between 19 and 25. PHYSICAL EXAMINATION: VITAL SIGNS: Blood pressure 123/80 on 5 mcg/kg/minute of dobutamine, temperature 96.4, oxygen saturation 95%, heart rate 72. HEAD AND NECK: Atraumatic. LUNGS: Few crackles bilaterally. HEART: Regular rate and rhythm. S1, S2 normal. ABDOMEN: Soft, nontender, nondistended. MUSCULOSKELETAL: Trace bilateral pedal and ankle edema. NEUROLOGIC: The patient was not observed moving her extremities. SKIN: Moist. PSYCHIATRIC: The patient is not responsive to painful stimuli. LABORATORY DATA: WBC 13.7, hemoglobin 9.6, platelet count 177. Sodium 141, potassium 3.8, chloride 108, carbon dioxide 21, BUN 30, creatinine 1.7 (up from 1.4), glucose 290. AST 194, ALT 73. EEG today morning was discussed with Dr. Valerie Guerra who stated that there is a severe slowing/dysfunction, but no epileptiform activity. MEDICATIONS: Aztreonam, clindamycin, dobutamine, doxycycline, aspirin, heparin drip, regular insulin sliding scale medium protocol, Keppra, Levemir, Lipitor, Plavix, Protonix. Chest x-ray from yesterday showed cardiogenic pulmonary edema. ASSESSMENT AND PLAN: This is an 85-year-old lady who presented with cardiogenic shock complicated by cardiac arrest, status post intubation and requiring inotropic support with dobutamine. At present time, the patient is relatively hemodynamically stable. She is still on pressure support 08/05/49. Her blood pressure is 123/80 and heart rate 76. The major concern at this point , however, is her mental status which is consistent with severe anoxic encephalopathy. I discussed this with Dr. Valerie Guerra who agreed with my assessment. Decision was made to repeat CAT scan later today or tomorrow morning to evaluate brain swelling. Nevertheless, prognosis for supratentorial/ neurological recovery is very poor. Once the CAT scan done to put final touches on assessment and prognostication, I will touch base with the family about the next step in this patient's management. Meanwhile, will continue to target euvolemia, euglycemia, normothermia and oxygen saturation more than 90%. Chest x-ray showed cardiogenic pulmonary edema and we will try to maintain euvolemia with very gentle diuresis to avoid kidney and brain hypoperfusion. Will continue with head of bed elevated more than 35 degrees with GI prophylaxis , VAP bundle. The patient is afebrile, has only mild leukocytosis, and I doubt infectious etiology behind bilateral fluffy infiltrates; however, I will order procalcitonin and will follow up septic workup on that as well. The patient is on inotropic support with dobutamine and appears to be hemodynamically stable. We will start enteral nutrition as soon as I speak with family and clarify their wishes and advanced directives. The patient has acute kidney injury which might be related to cardiogenic causes and positive fluid balance as kidneys are encapsulated organ/structure, thus substantial swelling of the limited space inside the renal capsule can affect venous blood outflow from these organs, exacerbating GRACIE. Thus, gentle diuresis may also present therapeutic trial in this situation as well. Will continue with euglycemia. Will continue with cardiac regimen as per cardiology service including beta blockers, DAP therapy, statins, therapeutic anticoagulation. Addendum: patient started to show signs of fatigue and was placed back on PRVC ccm time 40 min Damien Soliman MD cc: [id number] TT: 06/21/2016 13:11:25 Confirmation # [id number] Dictation # [id number] ARREDONDO
--- NOTE | 2016-06-21 13:31 | US ---
HISTORY: elevated LFT COMPARISON: None. TECHNIQUE: Sonographic evaluation of the abdomen. FINDINGS: LIVER: Measures 18.55 cm. Hepatopedal blood flow. Fatty infiltration manifest ultrasonographically as increased echogenicity of the liver parenchyma. No mass. No intrahepatic bile duct dilatation. GALLBLADDER: Cholelithiasis. Negative study for gallbladder wall thickening, pericholecystic fluid, sonographic Gaviria's sign. COMMON BILE DUCT: Measures 10.3 mm. Dilated common bile duct without x-ray insert or intrinsic abnormality. No intrahepatic bile duct dilatation is apparent. PANCREAS: Unremarkable as visualized. No mass. No ductal dilatation. RIGHT KIDNEY: Measures 12.3cm. Normal echogenicity. No calculus, mass, or hydronephrosis. LEFT KIDNEY: Measures 10.3cm. Echogenic foci within the left kidney likely nonobstructing calculi the largest measures 8 mm. SPLEEN: Normal in size and contour. No mass. AORTA: No aneurysmal dilatation. IVC: Unremarkable. OTHER FINDINGS: Left pleural effusion. IMPRESSION: Cholelithiasis. No sonographic evidence of acute cholecystitis. Nonobstructing left renal calculus disease Hepatomegaly/hepatic steatosis without focal abnormality.
[2016-06-21] MEDS: Insulin Regular 100 UNITS in Sodium Chloride 0.9% 99 ML IV PRN ×4 (14:02→18:16)
--- NOTE | 2016-06-21 14:25 | PN ---
DATE: 06/21/2016 SUBJECTIVE: The patient remains on a ventilator. Her mental status is markedly diminished. PHYSICAL EXAMINATION: VITAL SIGNS: Blood pressure is 118/50, the heart rate is in the 80s. NECK: Negative JVD. LUNGS: Have no rales. HEART: Reveals S1, S2. EXTREMITIES: Without edema. LABORATORY DATA: Hemoglobin is 9.6. Chemistries: BUN and creatinine is 30 and 1.7. The glucose is 230. IMPRESSION: 1. Status post cardiopulmonary arrest. 2. Critical calcified coronary lesion in the proximal circumflex artery which could not be opened wi th balloon angioplasty. 3. Diabetes mellitus. 4. Respiratory failure. 5. Anoxic encephalopathy. 6. Non-ST elevation myocardial infarction. 7. Renal insufficiency. The patient has been turned down for transfer to [facility] given the high risk of rotablader of the proximal circumflex lesion. Instead, we will continue on medical therapy. I have discussed this with Dr. Soliman. The plan wou ld be to try to get her off the respirator and to reevaluate her mental function. Parish Urias MD cc: [id number] TT: 06/21/2016 14:25:06 Confirmation # [id number] Dictation # [id number] tn
--- NOTE | 2016-06-21 14:47 | CT ---
PROCEDURE: CT HEAD WITHOUT CONTRAST. HISTORY: anoxic brain injury, swelling COMPARISON: Comparison is made to the previous study dated 06/19/2016 TECHNIQUE: Axial computed tomography images were obtained through the head/brain without intravenous contrast. Radiation dose: Total exam DLP = 711.13 mGy-cm. FINDINGS: HEMORRHAGE: No intracranial hemorrhage. BRAIN: Interval improvement in the brain compared to the previous exam. Persistent hazy low-attenuation at the right frontal parietal lobe. Re- demonstration of heterogeneous low-attenuation foci at the cerebellar hemisphere and left larger than right. Atrophy and chronic microvascular white matter ischemic disease. VENTRICLES: Unremarkable. No hydrocephalus. CALVARIUM: Unremarkable. PARANASAL SINUSES: Complete opacification of the maxillary sinuses and right sphenoid sinus is noted. Partial opacification of the right mastoid. MASTOID AIR CELLS: Partial opacification of the right mastoid noted. OTHER FINDINGS: None. IMPRESSION: Interval improvement in the brain compared to the previous exam. Persistent hypodensity at the right brain mainly in the right frontal. Complete opacification of the maxillary and right sphenoid sinuses. No evidence of acute intracranial hemorrhage.
--- NOTE | 2016-06-21 15:17 | EEG ---
DATE: 06/21/2016 INTRODUCTION: This is a digitally recorded EEG monitoring using standard EEG montages. BACKGROUND RHYTHM: The EEG shows a background activity of 3-4 Hz delta activity. This EEG activity is present diffusely. EKG artifact is present throughout this EEG recording. There is intermittent attenuation of the background activity lasting for 2-3 seconds. ABNORMAL POTENTIALS: No spikes, sharp waves or focal slowing was seen. PHOTIC STIMULATION AND HYPERVENTILATION: Photic stimulation and hyperventilation were not performed. IMPRESSION: Abnormal electroencephalogram. The above findings are consistent with severe bihemisphe qiana cerebral dysfunction. No epileptiform activity seen in this electroencephalogram recording. Valerie Guerra MD cc: [phone] TT: 06/21/2016 15:17:12 Confirmation # [id number] Dictation # [id number]
--- NOTE | 2016-06-21 17:58 | CARD ---
APPROVED REPORT EKG Measurement Heart [id number] OR [id number] <Conclusion> Normal sinus rhythm Nonspecific ST and T wave abnormality Prolonged QT Abnormal ECG
[2016-06-21] MEDS: Heparin25000 units/250ml 1/2NS 250 ML IV SCH (18:01)
[2016-06-21] MEDS ORDERED: Insulin Detemir 100 units/ml Vial (Levemir) SC SCH (22:00)
[2016-06-22 05:39] LABS: ARTERIAL BLOOD GAS HCO3 20.9 mmol/L (21-28); ARTERIAL BLOOD GAS O2 CAPACITY 12.7 mL/dl (16-24); ARTERIAL BLOOD GAS O2 CONTENT 12.6 ML/dl (15-23); ARTERIAL BLOOD GAS PH 7.48 (7.35-7.45); ARTERIAL BLOOD HGB O2 SAT 95.9 % (95.0-98.0); CARBOXYHEMOGLOBIN 1.8 % (0.5-1.5); HHB 1.1 % (0-5); METHEMOGLOBIN 1.3 % (0.0-3.0)
[2016-06-22 06:03] LABS: ADD MANUAL DIFF? NO
[2016-06-22 06:11] LABS: EOS % 0.1 % (1.5-5.0); HEMATOCRIT 26.2 % (36.0-48.0); LYMPH # 0.9 (1.2-3.4); LYMPH % 6.7 % (22.0-35.0); MEAN CELL VOLUME 87.3 fL (80.0-105.0); MEAN CORPUSCULAR HEMOGLOBIN 29.3 pg (25.0-35.0); MEAN CORPUSCULAR HGB CONC 33.6 g/dl (31.0-37.0); MEAN PLATELET VOLUME 11.3 fl (7.0-11.0); MONO # 0.7 (0.1-0.6); MONO % 5.2 % (1.0-6.0); PLATELET COUNT 180 10^3/uL (120.0-450.0); RED CELL DISTRIBUTION WIDTH 14.4 % (11.5-14.5); WHITE BLOOD COUNT 12.8 10^3/ul (4.5-11.0)
[2016-06-22] MEDS: Aztreonam 1 Gm in NS 100mL 100 ML IVPB SCH ×3 (06:16→21:39)
[2016-06-22 06:25] LABS: ALB/GLOB RATIO 0.9 (1.1-1.8); BILIRUBIN,TOTAL 0.5 mg/dL (0.2-1.3); MAGNESIUM 1.2 mg/dL (1.7-2.2); PHOSPHOROUS 4.3 mg/dL (2.5-4.5); POTASSIUM 3.2 mmol/L (3.6-5.0); TOTAL PROTEIN 5.4 g/dL (5.8-8.3)
[2016-06-22 07:07] LABS: TROPONIN I 31.7 ng/mL
[2016-06-22] MEDS ORDERED: Insulin Lispro (humaLOG) LOW Coverage SC SCH (07:30)
[2016-06-22] MEDS ORDERED: Vancomycin 1gm in NS 250ml 250 ML IVPB STA (07:36)
[2016-06-22] MEDS: Potassium Chloride 20 mEq 100 ML IVPB SCH ×2 (08:17→11:02)
--- NOTE | 2016-06-22 08:29 | RAD ---
HISTORY: f/u COMPARISON: 06/21/2016 at 5:46 a.m. FINDINGS: LUNGS: Bilateral patchy coalescent airspace opacities in each perihilar to upper lung zone (right greater than left) are renoted there is vague increased hazy opacity increased more on the right. Right pleural effusion and increasing pulmonary edema on the background of the prior pulmonary pathology is small left pleural effusion present ; probably slightly increased on the right The airspace coalescence is most pronounced in the right upper lobe PLEURA: Small bilateral pleural effusions as above CARDIOVASCULAR: Normal. OSSEOUS STRUCTURES: Scoliosis versus positional changes (patient obliqued) VISUALIZED UPPER ABDOMEN: NG tube at least coursing along the gastric fundus ;tip beyond the inferior field of view OTHER FINDINGS: Endotracheal tube tip 4 cm from the jake as before. EKG leads in place IMPRESSION: Probable increasing pulmonary edema superimposed on the prior background coalescent airspace pulmonary pathology process (infiltrates and/or coalescent areas of pulmonary edema). An underlying infiltrate is probable Bilateral pleural effusions -the right has slightly increased
--- NOTE | 2016-06-22 08:44 | PN ---
DATE: 06/22/2016 PULMONARY NOTE SUBJECTIVE: The patient remains on the ventilator. She is currently sedated. PHYSICAL EXAMINATION: VITAL SIGNS: Temperature is 100.4, pulse 113, respirations 28/24, blood pressure 117/52. HEENT: Normocephalic, atraumatic. NECK: Positive JVD. CARDIOVASCULAR: Systolic ejection murmur at the lower left sternal border. Positive S3 gallop. LUNGS: Crackles at both lower lobes. Less rhonchi. No wheezing. EXTREMITIES: Mild edema. No cyanosis, no clubbing. GASTROINTESTINAL: Abdomen is soft, nondistended. Bowel sounds are positive. SKIN: No acute rash. NEUROLOGIC: Limited at the present time. PERTINENT LABORATORY DATA: Chest x-ray was done this morning and reviewed. The x-ray is similar to yesterday's film. However, there has been some improvement - compared to the original films. Arterial blood gas was done on assist control 24, tidal volume 400, FiO2 60%. Results are: pH 7.48, pCO2 of 28, pO2 of 106. IMPRESSION: 1. Respiratory failure. 2. Status post cardiopulmonary resuscitation. 3. Acute congestive heart failure. 4. Acute myocardial infarction. 5. Pneumonia, rule out aspiration. 6. History of coronary artery disease. 7. Chronic obstructive pulmonary disease. 8. Diabetes mellitus. PLAN: The patient remains on the ventilator. She is currently sedated. I did discuss the case with the night nurse at length. The night nurse confirmed that the patient is not doing well overall. I did review the x-ray as above. Today's film is similar to yesterday's film. However, today's film is also somewhat improved compared to the original films. I have also reviewed the arterial blood gas. The arterial blood gas reveals a mild respiratory alkalosis with a decrease in the alveolar arterial gradient. The patient also remains with a decrease in her mental status. Neurologic evaluation by Dr. Guerra is noted. Cardiology and infectious disease inputs are also noted. Unfortunately, the overall status/prognosis of this patient remains very poor. I will discuss the above with the entire ICU team in the next few moments. I will also discuss the above with Dr. Wheeler later this morning. Mandeep Karpman MD cc: [phone] TT: 06/22/2016 08:43:19 Confirmation # [id number] Dictation # [id number] [id number]
[2016-06-22] MEDS: DOBUTamine 500mg/250ml D5W 250 ML IV PRN (09:05)
[2016-06-22] MEDS: levETIRAcetam 500mg IVPB 100 ML IV SCH ×2 (09:50→21:39)
[2016-06-22] MEDS ORDERED: Magnesium Sulfate 2 GM in Sodium Chloride 0.9% 100 ML IVPB ONE (10:14)
--- NOTE | 2016-06-22 10:25 | PN ---
DATE: 06/22/2016 The patient is lying on the bed, on a ventilator, in no acute distress. PHYSICAL EXAMINATION: VITAL SIGNS: Her blood pressure is 144/ , heart rate is 88 per minute, breathing at a rate of 20 per minute and is afebrile. HEENT: Head is normocephalic, atraumatic. NECK: Supple. There are no carotid bruits. LUNGS: Clear. CARDIOVASCULAR: S1, S2 audible. No murmurs. ABDOMEN: Soft, nontender. Bowel sounds present. NEUROLOGIC EXAMINATION: MENTAL STATUS: The patient is mildly sedated with Precedex. She opens eyes on noxious stimuli. She does not follow any commands. CRANIAL NERVES: Pupils 2 mm bilaterally, reactive to light. Positive doll's eye. Positive corneal reflex. She grimaces to noxious painful stimuli. Plantars no response. IMPRESSION: 1. Hypoxic encephalopathy, status post cardiac arrest. 2. Status post seizures. RECOMMENDATIONS: 1. The patient to be continued on Keppra. 2. The patient had a repeat CT scan of the head, which shows no significant findings. 3. The patient to have MRI of the brain without contrast. 4. The patient to continue to have ventilatory support. 5. The patient's prognosis is guarded. 6. I have discussed patient's findings with the ICU staff as well as with the patient's family. Pro gnosis is guarded to poor for meaningful survival. Thank you for the opportunity to participate in the care of this patient. Valerie Guerra MD cc: [phone] TT: 06/22/2016 10:25:05 Confirmation # [id number] Dictation # [id number]
[2016-06-22 10:53] LABS: URINE BILIRUBIN NEGATIVE (NEGATIVE); URINE BLOOD MODERATE (NEGATIVE); URINE GLUCOSE (UA) NEGATIVE (NEGATIVE); URINE KETONE NEGATIVE (NEGATIVE); URINE LEUKOCYTE ESTERASE SMALL Leu/uL (NEGATIVE); URINE PROTEIN 30 mg/dL (<30 mg/dL); URINE UROBILINOGEN 0.2 E.U./dL (<1 E.U./dL)
[2016-06-22 10:55] LABS: URINE APPEARANCE SL CLOUDY (CLEAR); URINE COLOR YELLOW (YELLOW)
[2016-06-22 11:11] LABS: URINE RBC 0 - 2 /hpf (0-2)
[2016-06-22 11:12] LABS: URINE BACTERIA FEW (NEG)
[2016-06-22] MEDS: Insulin Lispro (humaLOG) LOW Coverage SC SCH ×6 (11:39→22:10)
--- NOTE | 2016-06-22 12:25 | CP.PCM.PN ---
Subjective - Date & Time of Evaluation Date of Evaluation: 06/22/16 Time of Evaluation: 08:10 - Subjective Subjective: Patient overnight continues to have low grade fever, still on the ventilator and minimally responsive. Objective - Vital Signs/Intake and Output Vital Signs (last 24 hours): Temp Pulse Resp BP Pulse Ox 100.4 F H 113 H 28 H 117/52 L 100 06/22/16 04:00 06/22/16 03:00 06/22/16 03:00 06/22/16 03:00 06/22/16 03:00 Intake and Output: 06/22/16 06/22/16 06:59 18:59 Intake Total 800 Output Total 600 Balance 200 - Medications Medications: Current Medications Acetaminophen (Tylenol 650 Mg Supp) 650 mg RC Q4H PRN PRN Reason: Fever >100.4 F Last Admin: 06/22/16 06:00 Dose: 650 mg Aspirin (Ecotrin) 81 mg PO DAILY [facility] Last Admin: 06/21/16 09:00 Dose: 81 mg Atorvastatin Calcium (Lipitor) 20 mg PO DIN [facility] Last Admin: 06/21/16 18:01 Dose: 20 mg Clopidogrel Bisulfate (Plavix) 75 mg PO DAILY [facility] Last Admin: 06/21/16 09:01 Dose: 75 mg Norepinephrine Bitartrate 4 mg (/ Dextrose) 254 mls @ 15.24 mls/hr IV .[id number] PRN; Protocol; 4 MCG/MIN PRN Reason: TITRATE PER MD ORDER Last Titration: 06/20/16 07:00 Dose: 0 mcg/min Dexmedetomidine HCl (Precedex 4 Mcg/Ml (100 Ml)) 100 mls @ 4.15 mls/hr IV .Q24H PRN; Protocol; 0.2 MCG/KG/HR PRN Reason: Agitation Last Titration: 06/22/16 03:55 Dose: 0.3 mcg/kg/hr Heparin Sodium/Sodium Chloride (Heparin 00741 Units/250ml 1/2 Normal Saline) 250 mls @ 9.961 mls/hr IV .Q24H MICHAEL; 12 UNITS/KG/HR PRN Reason: Protocol Last Admin: 06/21/16 18:01 Dose: 8 mls/hr Levetiracetam (Keppra 500mg Ivpb) 100 mls @ 400 mls/hr IV Q12 MICHAEL Last Admin: 06/21/16 21:32 Dose: 400 mls/hr Doxycycline Hyclate 100 mg/ (Sodium Chloride) 100 mls @ 100 mls/hr IVPB Q12 MICHAEL PRN Reason: Protocol Last Admin: 06/21/16 22:13 Dose: 100 mls/hr Aztreonam (Azactam 1 Gm) 100 mls @ 100 mls/hr IVPB Q8 MICHAEL PRN Reason: Protocol Stop: 06/27/16 14:46 Last Admin: 06/22/16 06:16 Dose: 100 mls/hr Clindamycin Phosphate 600 mg/ (Sodium Chloride) 54 mls @ 102 mls/hr IVPB Q8 MICHAEL PRN Reason: Protocol Stop: 06/25/16 22:01 Last Admin: 06/22/16 06:16 Dose: 102 mls/hr Dobutamine HCl/Dextrose (Dobutamine/Dextrose 5% 500mg/250ml) 250 mls @ 12.664 mls/hr IV .[id number] PRN; Protocol; 5 MCG/KG/MIN PRN Reason: TITRATE PER PROTOCOL Last Admin: 06/21/16 11:15 Dose: 12.664 mls/hr Insulin Human Regular 100 (units/ Sodium Chloride) 100 mls @ 4 mls/hr IV .Q24H PRN; Protocol; 4 UNITS/HR PRN Reason: TITRATE PER MD ORDER Last Titration: 06/21/16 22:20 Dose: 0 units/hr Insulin Human Lispro (Humalog Low) 0 units SC ACHS MICHAEL PRN Reason: Protocol Pantoprazole Sodium (Protonix Inj) 40 mg IVP DAILY [facility] Last Admin: 06/21/16 09:01 Dose: 40 mg - Labs Labs: 06/22/16 06:00 06/22/16 06:00 PT 11.6 Seconds (9.9-11.8) 06/19/16 13:30 INR 1.07 (0.93-1.08) 06/19/16 13:30 APTT 49.4 Seconds (23.7-30.8) H 06/22/16 06:00 - Constitutional Appears: Other (Intubated, minimally responsive) - ENT Exam Additional comments: ET tube in place - Neck Exam Neck Exam: absent: Meningismus - Respiratory Exam Respiratory Exam: Decreased Breath Sounds - Cardiovascular Exam Cardiovascular Exam: +S1, +S2 - GI/Abdominal Exam GI & Abdominal Exam: Soft. absent: Tenderness Assessment and Plan - Assessment and Plan (Free Text) Plan: Assessment Systemic Inflammatory Response Syndrome, consider secondary to acute stressful event (apparent seizure episodes with cardiorespiratory arrest), consider severe sepsis with acute hypoxic encephalopathy secondary to aspiration pneumonitis as well; R/O UTI with Klebsiella, in patient also with congestive heart failure Acute renal failure HTN DM obesity with BMI 33 Plan continue Azactam (because of concern for seizures), and continue intermittent IV Vancomycin (day 3); PCT is elevated; reviewed CXR; reviewed Dr. Nixon's evaluation as well we have discontinued Clindamycin If the patient continues to have fever, will repeat septic work up Overally prognosis is poor
--- NOTE | 2016-06-22 13:21 | RAD ---
HISTORY: pneumonia COMPARISON: 06/22/2016 5:41 a.m. FINDINGS: LUNGS: The previously referenced bilateral coalescent patchy airspace opacities right hemithorax greater than left are renoted. There is some clearing of the hazy opacity in the right inferolateral hemithorax. Otherwise no changes perceived PLEURA: Small/minimal bilateral pleural effusions possible and/or inferolateral minimal pleural thickening. This is less pronounced currently at the right lung base No pneumothorax apparent. CARDIOVASCULAR: Normal. OSSEOUS STRUCTURES: No significant abnormalities. VISUALIZED UPPER ABDOMEN: Normal. OTHER FINDINGS: Endotracheal tube and NG tube -portions visualize appear appropriate IMPRESSION: No significant change appreciated
--- NOTE | 2016-06-22 13:34 | PN ---
DATE: 06/22/2016 The patient is minimally responsive. She is still on a ventilator. PHYSICAL EXAMINATION: VITAL SIGNS: Blood pressure 132/66, heart rate is in the 80s. NECK: Negative JVD. LUNGS: Decreased breath sounds. HEART: Revealed S1, S2. EXTREMITIES: Without edema. Hemoglobin is 8.8. Chemistries: Troponins are 31.7. BUN and creatinine 32 and 1.7. IMPRESSION: 1. Status post cardiopulmonary arrest. 2. Respiratory failure. 3. Ischemic dilated cardiomyopathy. 4. Renal insufficiency. 5. Diabetes mellitus. 6. Critical heavily calcified proximal circumflex artery, which could not be manipulated due to the marked calcification. Given these findings, the patient's poor mental status and lack of recovery from her cardiopulmonary arrest, would avoid aggressive procedures for her significant coronary disease. The patient remains hemodynamically okay at this time. We will hold off transfer to [facility] while we are evaluating her mental status. Parish Urias MD cc: [id number] TT: 06/22/2016 13:34:00 Confirmation # [id number] Dictation # [id number] en
--- NOTE | 2016-06-22 14:03 | PN ---
DATE: 06/22/2016 The patient seen and examined at bedside. She appeared to be comfortable and pressure support trial was initiated. However, patient did not tolerate it, developed respiratory distress, subsequently was put back on PRVC and chest x- ray showed some worsening of pulmonary edema. PEEP increased to 15, FiO2 to 100 %, 40 mg of Lasix given. Menezes catheter is in place and urine output will be monitored and measured. At the present time, FiO2 down to 70% and then 50%, however, PEEP remains at 15 with O2 sat 94%. The tidal volume decreased to 350 , down from 400, and respiratory rate increased to 24. ABG 7.36/35/73. PHYSICAL EXAMINATION: HEAD AND NECK: Atraumatic. LUNGS: Crackles bilaterally. HEART: Regular rate and rhythm. S1, S2 distant. ABDOMEN: Soft, nontender, nondistended. MUSCULOSKELETAL: Trace bilateral pedal and ankle edema. NEUROLOGIC: The patient does not respond to verbal or touch stimuli. She is grimacing on painful stimuli. SKIN: Moist. PSYCHIATRIC: The patient does not follow commands. LABORATORIES: WBC 12.8, hemoglobin 8.8, platelet count 180. Sodium 141, potassium 3.2 (supplemented), chloride 109, carbon dioxide 24, BUN 32, creatinine 1.7, glucose 166, calcium 7, AST 76, ALT 68. Troponin 31.7, down from 44. Procalcitonin 59.96, down from 83.96. MEDICATIONS: Aztreonam, dobutamine, Precedex (was off to evaluate mental status better), doxycycline, aspirin, heparin drip, regular insulin sliding scale low protocol, Keppra, Lasix 40 mg x 1, Plavix, Protonix, Tylenol p.r.n., intermittent vancomycin. 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 She still requires inotropic and ventilatory support. She is also in ventilator-dependent respiratory failure and failed miserably pressure support trial with worsening of pulmonary edema. The patient back on pressure regulated volume control. Aggressive diuresis initiated with the goal og 1L neg fluid balance to achieve euvolemia.. Afterload reduction provided by positive pressure ventilation. Will consider starting hydralazine/isosorbide mononitrate. The patient is on inotropic support with dobutamine as well. I had a conversation with the family along with neurology service (Dr. Guerra). It appears that the chances for meaningful neurological (supratentorial) recovery are very poor. For better prognostication, Dr. Guerra wanted to order MRI of the head. At present time, it will be postponed until respiratory status stabilized. We had a lengthy discussion with family about possible outcomes in the patient's situation. The patient's family had opportunity to ask questions and all those questions were answered. We will continue to target euvolemia, euglycemia, normothermia and oxygen saturation more than 90%. We will continue with gastrointestinal prophylaxis. The patient is on therapeutic anticoagulation with heparin. The patient is on dual antiplatelet regimen, statins. We will continue with protective lung ventilation strategy, conservative fluid management, conservative oxygen management, high positive end-expiratory pressure. We will continue with head of bed elevated more than 35 degrees, ventilator-associated pneumonia bundle. We will start patient on enteral nutrition. MRI of the head will be done when patient more stable. We will maintain blood glucose within 140-180 range. ccm time 40 min Damien Soliman MD cc: [id number] TT: 06/22/2016 14:02:53 Confirmation # [id number] Dictation # [id number] en MTDD
--- NOTE | 2016-06-22 14:42 | CP.PCM.PN ---
Subjective - Date & Time of Evaluation Date of Evaluation: 06/22/16 Time of Evaluation: 11:00 - Subjective Subjective: PGY-1 Medicine progress Patient seen and examined at bedside in the ICU. Patient is intubated with vent settings of FIO2 60%, PEEP 5, rate 24, tidal vol 400, however FIO2 and peep were increased to 100% and 15 because patient was unable to tolerate. patient on Precedex for sedation. Patient had low grade fevers overnight. 1400 cc urinary output over 24 hours. Patient is on dobutamine. Patient is minimally responsive to sternal rub. Objective - Vital Signs/Intake and Output Vital Signs (last 24 hours): Temp Pulse Resp BP Pulse Ox 100.2 F H 106 H 31 H 154/88 H 99 06/22/16 13:28 06/22/16 14:21 06/22/16 14:21 06/22/16 14:21 06/22/16 14:21 Intake and Output: 06/22/16 06/22/16 06:59 18:59 Intake Total 800 Output Total 600 Balance 200 - Medications Medications: Current Medications Acetaminophen (Tylenol 650 Mg Supp) 650 mg RC Q4H PRN PRN Reason: Fever >100.4 F Last Admin: 06/22/16 06:00 Dose: 650 mg Aspirin (Ecotrin) 81 mg PO DAILY [facility] Last Admin: 06/22/16 09:50 Dose: 81 mg Atorvastatin Calcium (Lipitor) 20 mg PO DIN [facility] Last Admin: 06/21/16 18:01 Dose: 20 mg Clopidogrel Bisulfate (Plavix) 75 mg PO DAILY [facility] Last Admin: 06/22/16 09:51 Dose: 75 mg Norepinephrine Bitartrate 4 mg (/ Dextrose) 254 mls @ 15.24 mls/hr IV .[id number] PRN; Protocol; 4 MCG/MIN PRN Reason: TITRATE PER MD ORDER Last Titration: 06/20/16 07:00 Dose: 0 mcg/min Dexmedetomidine HCl (Precedex 4 Mcg/Ml (100 Ml)) 100 mls @ 4.15 mls/hr IV .Q24H PRN; Protocol; 0.2 MCG/KG/HR PRN Reason: Agitation Last Titration: 06/22/16 03:55 Dose: 0.3 mcg/kg/hr Heparin Sodium/Sodium Chloride (Heparin 57253 Units/250ml 1/2 Normal Saline) 250 mls @ 9.961 mls/hr IV .Q24H MICHAEL; 12 UNITS/KG/HR PRN Reason: Protocol Last Titration: 06/22/16 09:06 Dose: 12.04 units/kg/hr Levetiracetam (Keppra 500mg Ivpb) 100 mls @ 400 mls/hr IV Q12 MICHAEL Last Admin: 06/22/16 09:50 Dose: 400 mls/hr Doxycycline Hyclate 100 mg/ (Sodium Chloride) 100 mls @ 100 mls/hr IVPB Q12 MICHAEL PRN Reason: Protocol Last Admin: 06/22/16 09:57 Dose: 100 mls/hr Aztreonam (Azactam 1 Gm) 100 mls @ 100 mls/hr IVPB Q8 MICHAEL PRN Reason: Protocol Stop: 06/27/16 14:46 Last Admin: 06/22/16 13:20 Dose: 100 mls/hr Dobutamine HCl/Dextrose (Dobutamine/Dextrose 5% 500mg/250ml) 250 mls @ 12.664 mls/hr IV .[id number] PRN; Protocol; 5 MCG/KG/MIN PRN Reason: TITRATE PER PROTOCOL Last Admin: 06/22/16 09:05 Dose: 12.664 mls/hr Insulin Human Regular 100 (units/ Sodium Chloride) 100 mls @ 4 mls/hr IV .Q24H PRN; Protocol; 4 UNITS/HR PRN Reason: TITRATE PER MD ORDER Last Titration: 06/21/16 22:20 Dose: 0 units/hr Insulin Human Lispro (Humalog Low) 0 units SC Q2 MICHAEL PRN Reason: Protocol Last Admin: 06/22/16 13:10 Dose: 2 units Pantoprazole Sodium (Protonix Inj) 40 mg IVP DAILY MICHAEL Last Admin: 06/22/16 09:52 Dose: 40 mg - Labs Labs: 06/22/16 06:00 06/22/16 06:00 PT 11.6 Seconds (9.9-11.8) 06/19/16 13:30 INR 1.07 (0.93-1.08) 06/19/16 13:30 APTT 49.4 Seconds (23.7-30.8) H 06/22/16 06:00 - Head Exam Head Exam: ATRAUMATIC, NORMOCEPHALIC - Eye Exam Eye Exam: Normal appearance Pupil Exam: PERRL - ENT Exam ENT Exam: Mucous Membranes Moist - Respiratory Exam Respiratory Exam: Clear to Ausculation Bilateral, Rales. absent: Rhonchi, Wheezes, Respiratory Distress Additional comments: intubated, on vent - Cardiovascular Exam Cardiovascular Exam: REGULAR RHYTHM. absent: Tachycardia, Murmur - GI/Abdominal Exam GI & Abdominal Exam: Soft, Normal Bowel Sounds. absent: Distended, Firm, Tenderness - Extremities Exam Extremities Exam: Normal Inspection Additional comments: trace pitting edema - Neurological Exam Neurological Exam: Alert, Awake, Oriented x3 - Skin Skin Exam: Dry, Intact, Normal Color, Warm Assessment and Plan - Assessment and Plan (Free Text) Assessment: 85yo female with PMH of DM, HTN, bronchitis present with cardiac arrest s/p cardiogenic shock, hypoxemic respiratory failure with metabolic acidosis. Patient is intubated, on Precedex for sedation. Cardiac cath was unsuccessful for PTCA of 95% proximal circumflex, and 50% mid left LAD. Continue ICU management. Plan: 1. Anoxic brain injury secondary to cardiac arrest and cardiogenic shock - intially on multiple pressors - patient currently on dobutamine - Head CT - generalized atrophy; nonspecific white matter changes; limited study (please see full report) - Neurologist, Dr. Shania Guerra following - EEG was abnormal, severe bihemispheric cerebral dysfunction, no epileptiform - cont keppra - patient currently on light sedation, on precedex - MRI ordered 2. Hypoxemic Respiratory Failure with metabolic acidosis s/p : - Intubated, ventilator dependend respiratory failure, Precedex Sedation - failed pressure support trial - CXR-extensive interstitial prominence predominantly within the upper lobes R>L - recieved lasix to reduce pulmonary edema - Lower extremity venous duplex- negative - abx aztreonam, clindamycin, doxycycline - pulm, Dr. Nixon is following 3. UTI with Sepsis - Lactate 6.9 - leukocytosis of 13.7 - procalcitonin is elevated, 83.98 - urine cultures positive- klebsiella pneumoniae and aerococcus viridans - blood cultures negative - sputum cultures negative - CXR: extensive interstitial prominence predominantly within the upper lobes reflects R>L - currently on aztreonam, doxycycline - IVF restriction due to CHF, on 1/2 NS @50 - ID, Dr. Mata following 4. NSTEMI: - EKG - inferolateral ST depressions (please see full report) - Troponin trending up, last trop was 47 - Pro-BNP; 4190 - [employer] Sheriff, Dr. Urias, following - cont Heparin drip - patient went to cardiac cath; unsuccessful for PTCA of 95% proximal circumflex , and 50% mid left LAD - hold transfer to [facility] for further evaluation of mental status 5. elevated LFTs - most likely secondary to cardiac arrest - downtrending - Hepatitis serologies are negative - abd US -cholelithiasis, no cholecysitis, no obstruction. Hepatomegaly/hepatic steatosis - GI following 6. Anemia - hgb downtrending - will consult Dr. Trimble - cont to monitor 7. hyperglycemia - started levemir 5 units HS - on ISSS, increased to med - H/O DM - cont to monitor 9. Prophylactic Measures: GI: Protonix 40 mg IV qd DVT: Heparin drip
--- NOTE | 2016-06-22 15:01 | CP.CCUPN ---
<Anastacio Huertas - Last Filed: 06/22/16 15:39> CCU Subjective - Physician Review Events Since Last Encounter (Free Text): 06/22/16 15:21 Pt s&e with ICU attending. Pt had fever of 100.6 overnight. Intubated, doesn't response to stimuli, doesn't follow commands. pressure support trial was attemped but pt didn't tolerate. Placed back on PRVC. PM ABG ordered. CXR showed pulmonary edema. Lasix was given . CCU Objective - Vital Signs / Intake & Output Vital Signs (Last 4 hours): Vital Signs Temp Pulse Resp BP Pulse Ox 06/22/16 14:56 103 H 31 H 155/80 H 100 06/22/16 14:21 106 H 31 H 154/88 H 99 06/22/16 13:28 100.2 F H Intake and Output (Last 8hrs): Intake & Output 06/22/16 06/22/16 06/22/16 06:59 14:59 22:59 Intake Total 800 Output Total 600 Balance 200 Intake: IV 800 Right Femoral 800 Output: Urine 600 Urethral (Menezes) 600 - Physical Exam Head: Positive for: Atraumatic, Normocephalic Conjunctiva: Positive for: Normal Mouth: Positive for: Other ( ET tube) Respiratory/Chest: Positive for: Respiratory Distress, Rales (Diffuse rales bilaterally), Other (Crackles ) Cardiovascular: Positive for: Regular Rate and Rhythm, Normal S1, S2. Negative for: Murmurs Abdomen: Negative for: Tenderness, Distention, Normal Bowel Sounds Upper Extremity: Positive for: Edema Lower Extremity: Positive for: Edema Skin: Positive for: Warm, Dry. Negative for: Rashes Psychiatric: Negative for: Alert, Oriented x 3 - Medications Active Medications: Active Medications Generic Name Dose Route Start Last Admin Trade Name Freq PRN Reason Stop Dose Admin Acetaminophen 650 mg 06/21/16 18:24 06/22/16 06:00 Tylenol 650 Mg Supp RC 650 mg Q4H PRN Administration Fever >100.4 F Aspirin 81 mg 06/21/16 10:00 06/22/16 09:50 Ecotrin PO 81 mg DAILY MICHAEL Administration Atorvastatin Calcium 20 mg 06/19/16 17:00 06/21/16 18:01 Lipitor PO 20 mg DIN MICHAEL Administration Clopidogrel Bisulfate 75 mg 06/20/16 10:00 06/22/16 09:51 Plavix PO 75 mg DAILY MICHAEL Administration Norepinephrine Bitartrate 4 mg 254 mls @ 15.24 mls/hr 06/19/16 14:15 06/20/16 07:00 / Dextrose IV 0 mcg/min .[id number] PRN Titration TITRATE PER MD ORDER Protocol 4 MCG/MIN Dexmedetomidine HCl 100 mls @ 4.15 mls/hr 06/19/16 15:08 06/22/16 03:55 Precedex 4 Mcg/Ml (100 Ml) IV 0.3 mcg/kg/hr .Q24H PRN Titration Agitation Protocol 0.2 MCG/KG/HR Heparin Sodium/Sodium Chloride 250 mls @ 9.961 mls/hr 06/19/16 15:45 06/22/16 09:06 Heparin 02868 Units/250ml 1/2 Normal Saline IV 12.04 units/kg/hr .Q24H MICHAEL Titration Protocol 12 UNITS/KG/HR Levetiracetam 100 mls @ 400 mls/hr 06/19/16 22:00 06/22/16 09:50 Keppra 500mg Ivpb IV 400 mls/hr Q12 MICHAEL Administration Doxycycline Hyclate 100 mg/ 100 mls @ 100 mls/hr 06/20/16 10:30 06/22/16 09:57 Sodium Chloride IVPB 100 mls/hr Q12 MICHAEL Administration Protocol Aztreonam 100 mls @ 100 mls/hr 06/20/16 14:45 06/22/16 13:20 Azactam 1 Gm IVPB 06/27/16 14:46 100 mls/hr Q8 MICHAEL Administration Protocol Dobutamine HCl/Dextrose 250 mls @ 12.664 mls/hr 06/20/16 16:42 06/22/16 09:05 Dobutamine/Dextrose 5% 500mg/250ml IV 12.664 mls/hr .[id number] PRN Administration TITRATE PER PROTOCOL Protocol 5 MCG/KG/MIN Insulin Human Regular 100 100 mls @ 4 mls/hr 06/21/16 12:33 06/21/16 22:20 units/ Sodium Chloride IV 0 units/hr .Q24H PRN Titration TITRATE PER MD ORDER Protocol 4 UNITS/HR Insulin Human Lispro 0 units 06/22/16 12:00 06/22/16 13:10 Humalog Low SC 2 units Q2 MICHAEL Administration Protocol Pantoprazole Sodium 40 mg 06/20/16 10:00 06/22/16 09:52 Protonix Inj IVP 40 mg DAILY MICHAEL Administration - Patient Studies Lab Studies: Microbiology Studies 06/19/16 16:30 Blood Culture - Preliminary Blood NO GROWTH AFTER 48 HOURS 06/19/16 17:00 Gram Stain - Final Sputum Sputum Culture - Final NORMAL ORAL MARY ALICE Lab Studies 06/22/16 06/22/16 06/22/16 Range/Units 10:40 06:30 06:00 WBC 12.8 H (4.5-11.0) 10^3/ul RBC 3.00 L (3.5-6.1) 10^6/uL Hgb 8.8 L (12.0-16.0) gm/dL Hct 26.2 L (36.0-48.0) % MCV 87.3 (80.0-105.0) fL MCH 29.3 (25.0-35.0) pg MCHC 33.6 (31.0-37.0) g/dl RDW 14.4 (11.5-14.5) % Plt Count 180 (120.0-450.0) 10^3/uL MPV 11.3 H (7.0-11.0) fl Gran % 88.0 H (50.0-68.0) % Lymph % (Auto) 6.7 L (22.0-35.0) % Harper % (Auto) 5.2 (1.0-6.0) % Eos % (Auto) 0.1 L (1.5-5.0) % Baso % (Auto) 0.0 (0.0-3.0) % Gran # 11.30 H (1.4-6.5) Lymph # 0.9 L (1.2-3.4) Harper # 0.7 H (0.1-0.6) Eos # 0.0 (0.0-0.7) Baso # 0.00 (0.0-2.0) K/mm3 APTT 49.4 H (23.7-30.8) Seconds pCO2 (35-45) mm/Hg pO2 (80-100) mm/Hg HCO3 (21-28) mmol/L ABG pH (7.35-7.45) ABG Total CO2 (22-28) mmol.L ABG O2 Saturation (95-98) % ABG O2 Content (15-23) ML/dl ABG Base Excess (-2.0-3.0) mmol/L ABG Hemoglobin (11.7-17.4) g/dL ABG Carboxyhemoglobin (0.5-1.5) % POC ABG HHb (Measured) (0-5) % ABG Methemoglobin (0.0-3.0) % ABG O2 Capacity (16-24) mL/dl Hgb O2 Saturation (95.0-98.0) % FiO2 % Sodium 141 (132-148) mmol/L Potassium 3.2 L (3.6-5.0) mmol/L Chloride 109 H (98-107) mmol/L Carbon Dioxide 24 (21-33) mmol/L Anion Gap 11 (10-20) BUN 32 H (7-21) mg/dL Creatinine 1.7 H (0.5-1.4) mg/dL Est GFR ( Amer) 34 Est GFR (Non-Af Amer) 28 POC Glucose (mg/dL) (65-110) mg/dL Random Glucose 166 H (70-110) mg/dL Calcium 7.0 L (8.4-10.5) mg/dL Phosphorus 4.3 (2.5-4.5) mg/dL Magnesium 1.2 L (1.7-2.2) mg/dL Total Bilirubin 0.5 (0.2-1.3) mg/dL AST 76 H (15-39) U/L ALT 68 H (7-56) U/L Alkaline Phosphatase 76 (38-133) U/L Troponin I 31.70 H* D ng/mL Total Protein 5.4 L (5.8-8.3) g/dL Albumin 2.5 L (3.0-4.8) g/dL Globulin 2.9 gm/dL Albumin/Globulin Ratio 0.9 L (1.1-1.8) Procalcitonin 59.96 H (0.19-0.49) NG/ML Urine Color Yellow (YELLOW) Urine Appearance Sl cloudy (CLEAR) Urine pH 6.0 (4.7-8.0) Ur Specific [place] >= 1.030 (1.005-1.035) Urine Protein 30 H (<30 mg/dL) mg/dL Urine Glucose (UA) Negative (NEGATIVE) mg/dL Urine Ketones Negative (NEGATIVE) mg/dL Urine Blood Moderate H (NEGATIVE) Urine Nitrate Negative (NEGATIVE) Urine Bilirubin Negative (NEGATIVE) Urine Urobilinogen 0.2 (<1 E.U./dL) E.U./dL Ur Leukocyte Esterase Small H (NEGATIVE) Oz/uL Urine RBC 0 - 2 (0-2) /hpf Urine WBC 1 - 3 (0-6) /hpf Urine Bacteria Few (NEG) Coarse Granular Casts Trace H (0-2) /hpf 06/22/16 06/21/16 06/21/16 Range/Units 05:00 23:03 22:00 WBC (4.5-11.0) 10^3/ul RBC (3.5-6.1) 10^6/uL Hgb (12.0-16.0) gm/dL Hct (36.0-48.0) % MCV (80.0-105.0) fL MCH (25.0-35.0) pg MCHC (31.0-37.0) g/dl RDW (11.5-14.5) % Plt Count (120.0-450.0) 10^3/uL MPV (7.0-11.0) fl Gran % (50.0-68.0) % Lymph % (Auto) (22.0-35.0) % Harper % (Auto) (1.0-6.0) % Eos % (Auto) (1.5-5.0) % Baso % (Auto) (0.0-3.0) % Gran # (1.4-6.5) Lymph # (1.2-3.4) Harper # (0.1-0.6) Eos # (0.0-0.7) Baso # (0.0-2.0) K/mm3 APTT (23.7-30.8) Seconds pCO2 28 L (35-45) mm/Hg pO2 106.0 H (80-100) mm/Hg HCO3 20.9 L (21-28) mmol/L ABG pH 7.48 H (7.35-7.45) ABG Total CO2 21.8 L (22-28) mmol.L ABG O2 Saturation 98.9 H (95-98) % ABG O2 Content 12.6 L (15-23) ML/dl ABG Base Excess -1.9 (-2.0-3.0) mmol/L ABG Hemoglobin 9.2 L (11.7-17.4) g/dL ABG Carboxyhemoglobin 1.8 H (0.5-1.5) % POC ABG HHb (Measured) 1.1 (0-5) % ABG Methemoglobin 1.3 (0.0-3.0) % ABG O2 Capacity 12.7 L (16-24) mL/dl Hgb O2 Saturation 95.9 (95.0-98.0) % FiO2 60.0 % Sodium (132-148) mmol/L Potassium (3.6-5.0) mmol/L Chloride (98-107) mmol/L Carbon Dioxide (21-33) mmol/L Anion Gap (10-20) BUN (7-21) mg/dL Creatinine (0.5-1.4) mg/dL Est GFR ( Amer) Est GFR (Non-Af Amer) POC Glucose (mg/dL) 127 H 100 (65-110) mg/dL Random Glucose (70-110) mg/dL Calcium (8.4-10.5) mg/dL Phosphorus (2.5-4.5) mg/dL Magnesium (1.7-2.2) mg/dL Total Bilirubin (0.2-1.3) mg/dL AST (15-39) U/L ALT (7-56) U/L Alkaline Phosphatase (38-133) U/L Troponin I ng/mL Total Protein (5.8-8.3) g/dL Albumin (3.0-4.8) g/dL Globulin gm/dL Albumin/Globulin Ratio (1.1-1.8) Procalcitonin (0.19-0.49) NG/ML Urine Color (YELLOW) Urine Appearance (CLEAR) Urine pH (4.7-8.0) Ur Specific [place] (1.005-1.035) Urine Protein (<30 mg/dL) mg/dL Urine Glucose (UA) (NEGATIVE) mg/dL Urine Ketones (NEGATIVE) mg/dL Urine Blood (NEGATIVE) Urine Nitrate (NEGATIVE) Urine Bilirubin (NEGATIVE) Urine Urobilinogen (<1 E.U./dL) E.U./dL Ur Leukocyte Esterase (NEGATIVE) Oz/uL Urine RBC (0-2) /hpf Urine WBC (0-6) /hpf Urine Bacteria (NEG) Coarse Granular Casts (0-2) /hpf 06/21/16 06/21/16 06/21/16 Range/Units 21:06 20:14 18:12 WBC (4.5-11.0) 10^3/ul RBC (3.5-6.1) 10^6/uL Hgb (12.0-16.0) gm/dL Hct (36.0-48.0) % MCV (80.0-105.0) fL MCH (25.0-35.0) pg MCHC (31.0-37.0) g/dl RDW (11.5-14.5) % Plt Count (120.0-450.0) 10^3/uL MPV (7.0-11.0) fl Gran % (50.0-68.0) % Lymph % (Auto) (22.0-35.0) % Harper % (Auto) (1.0-6.0) % Eos % (Auto) (1.5-5.0) % Baso % (Auto) (0.0-3.0) % Gran # (1.4-6.5) Lymph # (1.2-3.4) Harper # (0.1-0.6) Eos # (0.0-0.7) Baso # (0.0-2.0) K/mm3 APTT (23.7-30.8) Seconds pCO2 (35-45) mm/Hg pO2 (80-100) mm/Hg HCO3 (21-28) mmol/L ABG pH (7.35-7.45) ABG Total CO2 (22-28) mmol.L ABG O2 Saturation (95-98) % ABG O2 Content (15-23) ML/dl ABG Base Excess (-2.0-3.0) mmol/L ABG Hemoglobin (11.7-17.4) g/dL ABG Carboxyhemoglobin (0.5-1.5) % POC ABG HHb (Measured) (0-5) % ABG Methemoglobin (0.0-3.0) % ABG O2 Capacity (16-24) mL/dl Hgb O2 Saturation (95.0-98.0) % FiO2 % Sodium (132-148) mmol/L Potassium (3.6-5.0) mmol/L Chloride (98-107) mmol/L Carbon Dioxide (21-33) mmol/L Anion Gap (10-20) BUN (7-21) mg/dL Creatinine (0.5-1.4) mg/dL Est GFR ( Amer) Est GFR (Non-Af Amer) POC Glucose (mg/dL) 111 H 135 H 152 H (65-110) mg/dL Random Glucose (70-110) mg/dL Calcium (8.4-10.5) mg/dL Phosphorus (2.5-4.5) mg/dL Magnesium (1.7-2.2) mg/dL Total Bilirubin (0.2-1.3) mg/dL AST (15-39) U/L ALT (7-56) U/L Alkaline Phosphatase (38-133) U/L Troponin I ng/mL Total Protein (5.8-8.3) g/dL Albumin (3.0-4.8) g/dL Globulin gm/dL Albumin/Globulin Ratio (1.1-1.8) Procalcitonin (0.19-0.49) NG/ML Urine Color (YELLOW) Urine Appearance (CLEAR) Urine pH (4.7-8.0) Ur Specific [place] (1.005-1.035) Urine Protein (<30 mg/dL) mg/dL Urine Glucose (UA) (NEGATIVE) mg/dL Urine Ketones (NEGATIVE) mg/dL Urine Blood (NEGATIVE) Urine Nitrate (NEGATIVE) Urine Bilirubin (NEGATIVE) Urine Urobilinogen (<1 E.U./dL) E.U./dL Ur Leukocyte Esterase (NEGATIVE) Oz/uL Urine RBC (0-2) /hpf Urine WBC (0-6) /hpf Urine Bacteria (NEG) Coarse Granular Casts (0-2) /hpf 06/21/16 06/21/16 06/21/16 Range/Units 17:01 16:08 16:00 WBC (4.5-11.0) 10^3/ul RBC (3.5-6.1) 10^6/uL Hgb (12.0-16.0) gm/dL Hct (36.0-48.0) % MCV (80.0-105.0) fL MCH (25.0-35.0) pg MCHC (31.0-37.0) g/dl RDW (11.5-14.5) % Plt Count (120.0-450.0) 10^3/uL MPV (7.0-11.0) fl Gran % (50.0-68.0) % Lymph % (Auto) (22.0-35.0) % Harper % (Auto) (1.0-6.0) % Eos % (Auto) (1.5-5.0) % Baso % (Auto) (0.0-3.0) % Gran # (1.4-6.5) Lymph # (1.2-3.4) Harper # (0.1-0.6) Eos # (0.0-0.7) Baso # (0.0-2.0) K/mm3 APTT 54.9 H (23.7-30.8) Seconds pCO2 (35-45) mm/Hg pO2 (80-100) mm/Hg HCO3 (21-28) mmol/L ABG pH (7.35-7.45) ABG Total CO2 (22-28) mmol.L ABG O2 Saturation (95-98) % ABG O2 Content (15-23) ML/dl ABG Base Excess (-2.0-3.0) mmol/L ABG Hemoglobin (11.7-17.4) g/dL ABG Carboxyhemoglobin (0.5-1.5) % POC ABG HHb (Measured) (0-5) % ABG Methemoglobin (0.0-3.0) % ABG O2 Capacity (16-24) mL/dl Hgb O2 Saturation (95.0-98.0) % FiO2 % Sodium (132-148) mmol/L Potassium (3.6-5.0) mmol/L Chloride (98-107) mmol/L Carbon Dioxide (21-33) mmol/L Anion Gap (10-20) BUN (7-21) mg/dL Creatinine (0.5-1.4) mg/dL Est GFR ( Amer) Est GFR (Non-Af Amer) POC Glucose (mg/dL) 191 H 230 H (65-110) mg/dL Random Glucose (70-110) mg/dL Calcium (8.4-10.5) mg/dL Phosphorus (2.5-4.5) mg/dL Magnesium (1.7-2.2) mg/dL Total Bilirubin (0.2-1.3) mg/dL AST (15-39) U/L ALT (7-56) U/L Alkaline Phosphatase (38-133) U/L Troponin I ng/mL Total Protein (5.8-8.3) g/dL Albumin (3.0-4.8) g/dL Globulin gm/dL Albumin/Globulin Ratio (1.1-1.8) Procalcitonin (0.19-0.49) NG/ML Urine Color (YELLOW) Urine Appearance (CLEAR) Urine pH (4.7-8.0) Ur Specific [place] (1.005-1.035) Urine Protein (<30 mg/dL) mg/dL Urine Glucose (UA) (NEGATIVE) mg/dL Urine Ketones (NEGATIVE) mg/dL Urine Blood (NEGATIVE) Urine Nitrate (NEGATIVE) Urine Bilirubin (NEGATIVE) Urine Urobilinogen (<1 E.U./dL) E.U./dL Ur Leukocyte Esterase (NEGATIVE) Oz/uL Urine RBC (0-2) /hpf Urine WBC (0-6) /hpf Urine Bacteria (NEG) Coarse Granular Casts (0-2) /hpf 06/21/16 06/21/16 06/21/16 Range/Units 15:13 11:21 07:17 WBC (4.5-11.0) 10^3/ul RBC (3.5-6.1) 10^6/uL Hgb (12.0-16.0) gm/dL Hct (36.0-48.0) % MCV (80.0-105.0) fL MCH (25.0-35.0) pg MCHC (31.0-37.0) g/dl RDW (11.5-14.5) % Plt Count (120.0-450.0) 10^3/uL MPV (7.0-11.0) fl Gran % (50.0-68.0) % Lymph % (Auto) (22.0-35.0) % Harper % (Auto) (1.0-6.0) % Eos % (Auto) (1.5-5.0) % Baso % (Auto) (0.0-3.0) % Gran # (1.4-6.5) Lymph # (1.2-3.4) Harper # (0.1-0.6) Eos # (0.0-0.7) Baso # (0.0-2.0) K/mm3 APTT (23.7-30.8) Seconds pCO2 (35-45) mm/Hg pO2 (80-100) mm/Hg HCO3 (21-28) mmol/L ABG pH (7.35-7.45) ABG Total CO2 (22-28) mmol.L ABG O2 Saturation (95-98) % ABG O2 Content (15-23) ML/dl ABG Base Excess (-2.0-3.0) mmol/L ABG Hemoglobin (11.7-17.4) g/dL ABG Carboxyhemoglobin (0.5-1.5) % POC ABG HHb (Measured) (0-5) % ABG Methemoglobin (0.0-3.0) % ABG O2 Capacity (16-24) mL/dl Hgb O2 Saturation (95.0-98.0) % FiO2 % Sodium (132-148) mmol/L Potassium (3.6-5.0) mmol/L Chloride (98-107) mmol/L Carbon Dioxide (21-33) mmol/L Anion Gap (10-20) BUN (7-21) mg/dL Creatinine (0.5-1.4) mg/dL Est GFR ( Amer) Est GFR (Non-Af Amer) POC Glucose (mg/dL) 238 H 331 H 340 H (65-110) mg/dL Random Glucose (70-110) mg/dL Calcium (8.4-10.5) mg/dL Phosphorus (2.5-4.5) mg/dL Magnesium (1.7-2.2) mg/dL Total Bilirubin (0.2-1.3) mg/dL AST (15-39) U/L ALT (7-56) U/L Alkaline Phosphatase (38-133) U/L Troponin I ng/mL Total Protein (5.8-8.3) g/dL Albumin (3.0-4.8) g/dL Globulin gm/dL Albumin/Globulin Ratio (1.1-1.8) Procalcitonin (0.19-0.49) NG/ML Urine Color (YELLOW) Urine Appearance (CLEAR) Urine pH (4.7-8.0) Ur Specific [place] (1.005-1.035) Urine Protein (<30 mg/dL) mg/dL Urine Glucose (UA) (NEGATIVE) mg/dL Urine Ketones (NEGATIVE) mg/dL Urine Blood (NEGATIVE) Urine Nitrate (NEGATIVE) Urine Bilirubin (NEGATIVE) Urine Urobilinogen (<1 E.U./dL) E.U./dL Ur Leukocyte Esterase (NEGATIVE) Oz/uL Urine RBC (0-2) /hpf Urine WBC (0-6) /hpf Urine Bacteria (NEG) Coarse Granular Casts (0-2) /hpf Laboratory Results - last 24 hr 06/21/16 06/21/16 06/21/16 07:17 11:21 15:13 WBC RBC Hgb Hct MCV MCH MCHC RDW Plt Count MPV Gran % Lymph % (Auto) Harper % (Auto) Eos % (Auto) Baso % (Auto) Gran # Lymph # Harper # Eos # Baso # APTT pCO2 pO2 HCO3 ABG pH ABG Total CO2 ABG O2 Saturation ABG O2 Content ABG Base Excess ABG Hemoglobin ABG Carboxyhemoglobin POC ABG HHb (Measured) ABG Methemoglobin ABG O2 Capacity Hgb O2 Saturation FiO2 Sodium Potassium Chloride Carbon Dioxide Anion Gap BUN Creatinine Est GFR ( Amer) Est GFR (Non-Af Amer) POC Glucose (mg/dL) 340 H 331 H 238 H Random Glucose Calcium Phosphorus Magnesium Total Bilirubin AST ALT Alkaline Phosphatase Troponin I Total Protein Albumin Globulin Albumin/Globulin Ratio Procalcitonin Urine Color Urine Appearance Urine pH Ur Specific [place] Urine Protein Urine Glucose (UA) Urine Ketones Urine Blood Urine Nitrate Urine Bilirubin Urine Urobilinogen Ur Leukocyte Esterase Urine RBC Urine WBC Urine Bacteria Coarse Granular Casts 06/21/16 06/21/16 06/21/16 16:00 16:08 17:01 WBC RBC Hgb Hct MCV MCH MCHC RDW Plt Count MPV Gran % Lymph % (Auto) Harper % (Auto) Eos % (Auto) Baso % (Auto) Gran # Lymph # Harper # Eos # Baso # APTT 54.9 H pCO2 pO2 HCO3 ABG pH ABG Total CO2 ABG O2 Saturation ABG O2 Content ABG Base Excess ABG Hemoglobin ABG Carboxyhemoglobin POC ABG HHb (Measured) ABG Methemoglobin ABG O2 Capacity Hgb O2 Saturation FiO2 Sodium Potassium Chloride Carbon Dioxide Anion Gap BUN Creatinine Est GFR ( Amer) Est GFR (Non-Af Amer) POC Glucose (mg/dL) 230 H 191 H Random Glucose Calcium Phosphorus Magnesium Total Bilirubin AST ALT Alkaline Phosphatase Troponin I Total Protein Albumin Globulin Albumin/Globulin Ratio Procalcitonin Urine Color Urine Appearance Urine pH Ur Specific [place] Urine Protein Urine Glucose (UA) Urine Ketones Urine Blood Urine Nitrate Urine Bilirubin Urine Urobilinogen Ur Leukocyte Esterase Urine RBC Urine WBC Urine Bacteria Coarse Granular Casts 06/21/16 06/21/16 06/21/16 18:12 20:14 21:06 WBC RBC Hgb Hct MCV MCH MCHC RDW Plt Count MPV Gran % Lymph % (Auto) Harper % (Auto) Eos % (Auto) Baso % (Auto) Gran # Lymph # Harper # Eos # Baso # APTT pCO2 pO2 HCO3 ABG pH ABG Total CO2 ABG O2 Saturation ABG O2 Content ABG Base Excess ABG Hemoglobin ABG Carboxyhemoglobin POC ABG HHb (Measured) ABG Methemoglobin ABG O2 Capacity Hgb O2 Saturation FiO2 Sodium Potassium Chloride Carbon Dioxide Anion Gap BUN Creatinine Est GFR ( Amer) Est GFR (Non-Af Amer) POC Glucose (mg/dL) 152 H 135 H 111 H Random Glucose Calcium Phosphorus Magnesium Total Bilirubin AST ALT Alkaline Phosphatase Troponin I Total Protein Albumin Globulin Albumin/Globulin Ratio Procalcitonin Urine Color Urine Appearance Urine pH Ur Specific [place] Urine Protein Urine Glucose (UA) Urine Ketones Urine Blood Urine Nitrate Urine Bilirubin Urine Urobilinogen Ur Leukocyte Esterase Urine RBC Urine WBC Urine Bacteria Coarse Granular Casts 06/21/16 06/21/16 06/22/16 22:00 23:03 05:00 WBC RBC Hgb Hct MCV MCH MCHC RDW Plt Count MPV Gran % Lymph % (Auto) Harper % (Auto) Eos % (Auto) Baso % (Auto) Gran # Lymph # Harper # Eos # Baso # APTT pCO2 28 L pO2 106.0 H HCO3 20.9 L ABG pH 7.48 H ABG Total CO2 21.8 L ABG O2 Saturation 98.9 H ABG O2 Content 12.6 L ABG Base Excess -1.9 ABG Hemoglobin 9.2 L ABG Carboxyhemoglobin 1.8 H POC ABG HHb (Measured) 1.1 ABG Methemoglobin 1.3 ABG O2 Capacity 12.7 L Hgb O2 Saturation 95.9 FiO2 60.0 Sodium Potassium Chloride Carbon Dioxide Anion Gap BUN Creatinine Est GFR ( Amer) Est GFR (Non-Af Amer) POC Glucose (mg/dL) 100 127 H Random Glucose Calcium Phosphorus Magnesium Total Bilirubin AST ALT Alkaline Phosphatase Troponin I Total Protein Albumin Globulin Albumin/Globulin Ratio Procalcitonin Urine Color Urine Appearance Urine pH Ur Specific [place] Urine Protein Urine Glucose (UA) Urine Ketones Urine Blood Urine Nitrate Urine Bilirubin Urine Urobilinogen Ur Leukocyte Esterase Urine RBC Urine WBC Urine Bacteria Coarse Granular Casts 06/22/16 06/22/16 06/22/16 06:00 06:30 10:40 WBC 12.8 H RBC 3.00 L Hgb 8.8 L Hct 26.2 L MCV 87.3 MCH 29.3 MCHC 33.6 RDW 14.4 Plt Count 180 MPV 11.3 H Gran % 88.0 H Lymph % (Auto) 6.7 L Harper % (Auto) 5.2 Eos % (Auto) 0.1 L Baso % (Auto) 0.0 Gran # 11.30 H Lymph # 0.9 L Harper # 0.7 H Eos # 0.0 Baso # 0.00 APTT 49.4 H pCO2 pO2 HCO3 ABG pH ABG Total CO2 ABG O2 Saturation ABG O2 Content ABG Base Excess ABG Hemoglobin ABG Carboxyhemoglobin POC ABG HHb (Measured) ABG Methemoglobin ABG O2 Capacity Hgb O2 Saturation FiO2 Sodium 141 Potassium 3.2 L Chloride 109 H Carbon Dioxide 24 Anion Gap 11 BUN 32 H Creatinine 1.7 H Est GFR ( Amer) 34 Est GFR (Non-Af Amer) 28 POC Glucose (mg/dL) Random Glucose 166 H Calcium 7.0 L Phosphorus 4.3 Magnesium 1.2 L Total Bilirubin 0.5 AST 76 H ALT 68 H Alkaline Phosphatase 76 Troponin I 31.70 H* D Total Protein 5.4 L Albumin 2.5 L Globulin 2.9 Albumin/Globulin Ratio 0.9 L Procalcitonin 59.96 H Urine Color Yellow Urine Appearance Sl cloudy Urine pH 6.0 Ur Specific [place] >= 1.030 Urine Protein 30 H Urine Glucose (UA) Negative Urine Ketones Negative Urine Blood Moderate H Urine Nitrate Negative Urine Bilirubin Negative Urine Urobilinogen 0.2 Ur Leukocyte Esterase Small H Urine RBC 0 - 2 Urine WBC 1 - 3 Urine Bacteria Few Coarse Granular Casts Trace H Fingerstick Blood Sugar Results: 218 Review of Systems - Review of Systems Systems not reviewed;Unavailable: Intubated Critical Care Progress Note - Ventilator Checklist Head of Bed 30 Degrees: Yes PUD Prophalyxis: Yes DVT Prophylaxis: Yes - Nutrition Nutrition: Nutrition Category Date Time Status NPO Diet [DIET] Diets 06/21/16 Lunch Ordered Assessment/Plan - Assessment and Plan (Free Text) Assessment: Hypoxemic Respiratory Failure with metabolic acidosis s/p cardiac arrest Cardiac arrest Anoxic encephalopathy Sepsis Neuro: seizure activity CT head : neg f/u MRI Neurologist, Dr. Shania Guerra following Empiric Keppra for seizure ppx Precedex Sedation possible EEG this week CV: Cardiac Arrest : Trop 47->32, EKG: Infero Lateral ischemia, ST depression, BNP 4200 -Dry Heat Room Attendant following : Cath: heavily calcified circumflex artery unable to recannulate. -Echo: Severe systolic dysfunction EF 32%. Inferolateral hypokinesis -Lipitor/ASA -Plavix 70 PO -Heparine drip -Dobutamin -Trend trop: trending down Pulm: Hypoxemic respiratory failure 2/2 aspiration pneumonia v pulmonary edema : vent dependent 70% /15/400 : weaning trial failed CXR: R>L infiltrate, b/l pulmonary edema Initial ABG: PH: 7.10; Lactate 6.9, P02 - 45, Bicarb 13.7-> 7.47/28/66/20-> 7.48/28/106/21 : respiratory alkalosis Keep PaO2 >60 , SaO2 >90% : ARDS protocol: Keep TV low. Keep PEEP high Daily ABG, CXR while intubated Possible tracheostomy if unable to extubate day 10. GI: Transaminitis -GI following -PTX ppx -Enteral feed Endo: Maintain euglycemia -SSI/acucheck q2 -replete e-lyte as needed renal: Urine ourpu 1.4L , Urine cx: Klebsiella sensitive for imipenem /cipro, Aerococcus sensitive for ceftriaxone/vanco maintain euvolemia DVT: Lower extremity venous duplex-negative for DVTs -Heparin drip -Plavix 75 ID: Aspiration pneumonia :Leukocytosis: 23k->18k-> 13, Lactic acidosis: 7->4-> 2.6. Precalcitonin: 84->60 -Maintain normothermia -ID following: Aztreonam/Doxy -IV tylenol Dispo: Guarded. Case discussed with ICU attending. <Damien Soliman - Last Filed: 06/22/16 17:38> CCU Objective - Vital Signs / Intake & Output Vital Signs (Last 4 hours): Vital Signs Temp Pulse Resp BP Pulse Ox 06/22/16 17:16 162/77 H 06/22/16 16:41 99.1 F 100 H 32 H 154/64 H 99 06/22/16 15:51 99 H 31 H 144/64 97 06/22/16 14:56 103 H 31 H 155/80 H 100 06/22/16 14:21 106 H 31 H 154/88 H 99 Intake and Output (Last 8hrs): Intake & Output 06/22/16 06/22/16 06/22/16 06:59 14:59 22:59 Intake Total 800 Output Total 600 Balance 200 Intake: IV 800 Right Femoral 800 Output: Urine 600 Urethral (Menezes) 600 Other: Voiding Method Indwelling Catheter - Medications Active Medications: Active Medications Generic Name Dose Route Start Last Admin Trade Name Freq PRN Reason Stop Dose Admin Acetaminophen 650 mg 06/21/16 18:24 06/22/16 06:00 Tylenol 650 Mg Supp RC 650 mg Q4H PRN Administration Fever >100.4 F Aspirin 81 mg 06/21/16 10:00 06/22/16 09:50 Ecotrin PO 81 mg DAILY MICHAEL Administration Atorvastatin Calcium 20 mg 06/19/16 17:00 06/22/16 17:17 Lipitor PO 20 mg DIN MICHAEL Administration Clopidogrel Bisulfate 75 mg 06/20/16 10:00 06/22/16 09:51 Plavix PO 75 mg DAILY MICHAEL Administration Norepinephrine Bitartrate 4 mg 254 mls @ 15.24 mls/hr 06/19/16 14:15 06/20/16 07:00 / Dextrose IV 0 mcg/min .[id number] PRN Titration TITRATE PER MD ORDER Protocol 4 MCG/MIN Dexmedetomidine HCl 100 mls @ 4.15 mls/hr 06/19/16 15:08 06/22/16 03:55 Precedex 4 Mcg/Ml (100 Ml) IV 0.3 mcg/kg/hr .Q24H PRN Titration Agitation Protocol 0.2 MCG/KG/HR Heparin Sodium/Sodium Chloride 250 mls @ 9.961 mls/hr 06/19/16 15:45 06/22/16 09:06 Heparin [id number] Units/250ml 1/2 Normal Saline IV 12.04 units/kg/hr .Q24H MICHAEL Titration Protocol 12 UNITS/KG/HR Levetiracetam 100 mls @ 400 mls/hr 06/19/16 22:00 06/22/16 09:50 Keppra 500mg Ivpb IV 400 mls/hr Q12 MICHAEL Administration Doxycycline Hyclate 100 mg/ 100 mls @ 100 mls/hr 06/20/16 10:30 06/22/16 09:57 Sodium Chloride IVPB 100 mls/hr Q12 MICHAEL Administration Protocol Aztreonam 100 mls @ 100 mls/hr 06/20/16 14:45 06/22/16 13:20 Azactam 1 Gm IVPB 06/27/16 14:46 100 mls/hr Q8 MICHAEL Administration Protocol Dobutamine HCl/Dextrose 250 mls @ 12.664 mls/hr 06/20/16 16:42 06/22/16 09:05 Dobutamine/Dextrose 5% 500mg/250ml IV 12.664 mls/hr .[id number] PRN Administration TITRATE PER PROTOCOL Protocol 5 MCG/KG/MIN Insulin Human Regular 100 100 mls @ 4 mls/hr 06/21/16 12:33 06/21/16 22:20 units/ Sodium Chloride IV 0 units/hr .Q24H PRN Titration TITRATE PER MD ORDER Protocol 4 UNITS/HR Acetaminophen 100 mls @ 400 mls/hr 06/22/16 15:37 Ofirmev IVPB 06/24/16 15:38 Q6H PRN Fever >100.4 F Insulin Human Lispro 0 units 06/22/16 12:00 06/22/16 15:24 Humalog Low SC 1 units Q2 MICHAEL Administration Protocol Pantoprazole Sodium 40 mg 06/20/16 10:00 06/22/16 09:52 Protonix Inj IVP 40 mg DAILY MICHAEL Administration - Patient Studies Lab Studies: Microbiology Studies 06/19/16 16:30 Blood Culture - Preliminary Blood NO GROWTH AFTER 3 DAYS Lab Studies 06/22/16 06/22/16 06/22/16 Range/Units 16:55 15:57 15:50 WBC (4.5-11.0) 10^3/ul RBC (3.5-6.1) 10^6/uL Hgb (12.0-16.0) gm/dL Hct (36.0-48.0) % MCV (80.0-105.0) fL MCH (25.0-35.0) pg MCHC (31.0-37.0) g/dl RDW (11.5-14.5) % Plt Count (120.0-450.0) 10^3/uL MPV (7.0-11.0) fl Gran % (50.0-68.0) % Lymph % (Auto) (22.0-35.0) % Harper % (Auto) (1.0-6.0) % Eos % (Auto) (1.5-5.0) % Baso % (Auto) (0.0-3.0) % Gran # (1.4-6.5) Lymph # (1.2-3.4) Harper # (0.1-0.6) Eos # (0.0-0.7) Baso # (0.0-2.0) K/mm3 APTT 55.5 H (23.7-30.8) Seconds pCO2 35 (35-45) mm/Hg pO2 73.0 L (80-100) mm/Hg HCO3 19.8 L (21-28) mmol/L ABG pH 7.36 (7.35-7.45) ABG Total CO2 20.9 L (22-28) mmol.L ABG O2 Saturation 96.5 (95-98) % ABG O2 Content (15-23) ML/dl ABG Base Excess -4.9 L (-2.0-3.0) mmol/L ABG Hemoglobin (11.7-17.4) g/dL ABG Carboxyhemoglobin (0.5-1.5) % POC ABG HHb (Measured) (0-5) % ABG Methemoglobin (0.0-3.0) % ABG O2 Capacity (16-24) mL/dl ABG Potassium 3.9 (3.6-5.2) mmol/L Hgb O2 Saturation (95.0-98.0) % Sodium 143.0 (132-148) mmol/L Chloride 114.0 H (98-107) mmol/L Glucose 208 H (65-105) mg/dl Lactate 1.6 (0.7-2.1) mmol/L Mechanical Rate 24 FiO2 50.0 % Tidal Volume 350 PEEP 15 Potassium (3.6-5.0) mmol/L Carbon Dioxide (21-33) mmol/L Anion Gap (10-20) BUN (7-21) mg/dL Creatinine (0.5-1.4) mg/dL Est GFR ( Amer) Est GFR (Non-Af Amer) POC Glucose (mg/dL) 179 H (65-110) mg/dL Random Glucose (70-110) mg/dL Calcium (8.4-10.5) mg/dL Phosphorus (2.5-4.5) mg/dL Magnesium (1.7-2.2) mg/dL Total Bilirubin (0.2-1.3) mg/dL AST (15-39) U/L ALT (7-56) U/L Alkaline Phosphatase (38-133) U/L Troponin I ng/mL Total Protein (5.8-8.3) g/dL Albumin (3.0-4.8) g/dL Globulin gm/dL Albumin/Globulin Ratio (1.1-1.8) Procalcitonin (0.19-0.49) NG/ML Arterial Blood Potassium 3.9 (3.6-5.2) mmol/L Urine Color (YELLOW) Urine Appearance (CLEAR) Urine pH (4.7-8.0) Ur Specific [place] (1.005-1.035) Urine Protein (<30 mg/dL) mg/dL Urine Glucose (UA) (NEGATIVE) mg/dL Urine Ketones (NEGATIVE) mg/dL Urine Blood (NEGATIVE) Urine Nitrate (NEGATIVE) Urine Bilirubin (NEGATIVE) Urine Urobilinogen (<1 E.U./dL) E.U./dL Ur Leukocyte Esterase (NEGATIVE) Oz/uL Urine RBC (0-2) /hpf Urine WBC (0-6) /hpf Urine Bacteria (NEG) Coarse Granular Casts (0-2) /hpf 06/22/16 06/22/16 06/22/16 Range/Units 15:04 13:02 11:31 WBC (4.5-11.0) 10^3/ul RBC (3.5-6.1) 10^6/uL Hgb (12.0-16.0) gm/dL Hct (36.0-48.0) % MCV (80.0-105.0) fL MCH (25.0-35.0) pg MCHC (31.0-37.0) g/dl RDW (11.5-14.5) % Plt Count (120.0-450.0) 10^3/uL MPV (7.0-11.0) fl Gran % (50.0-68.0) % Lymph % (Auto) (22.0-35.0) % Harper % (Auto) (1.0-6.0) % Eos % (Auto) (1.5-5.0) % Baso % (Auto) (0.0-3.0) % Gran # (1.4-6.5) Lymph # (1.2-3.4) Harper # (0.1-0.6) Eos # (0.0-0.7) Baso # (0.0-2.0) K/mm3 APTT (23.7-30.8) Seconds pCO2 (35-45) mm/Hg pO2 (80-100) mm/Hg HCO3 (21-28) mmol/L ABG pH (7.35-7.45) ABG Total CO2 (22-28) mmol.L ABG O2 Saturation (95-98) % ABG O2 Content (15-23) ML/dl ABG Base Excess (-2.0-3.0) mmol/L ABG Hemoglobin (11.7-17.4) g/dL ABG Carboxyhemoglobin (0.5-1.5) % POC ABG HHb (Measured) (0-5) % ABG Methemoglobin (0.0-3.0) % ABG O2 Capacity (16-24) mL/dl ABG Potassium (3.6-5.2) mmol/L Hgb O2 Saturation (95.0-98.0) % Sodium (132-148) mmol/L Chloride (98-107) mmol/L Glucose (65-105) mg/dl Lactate (0.7-2.1) mmol/L Mechanical Rate FiO2 % Tidal Volume PEEP Potassium (3.6-5.0) mmol/L Carbon Dioxide (21-33) mmol/L Anion Gap (10-20) BUN (7-21) mg/dL Creatinine (0.5-1.4) mg/dL Est GFR ( Amer) Est GFR (Non-Af Amer) POC Glucose (mg/dL) 194 H 218 H 216 H (65-110) mg/dL Random Glucose (70-110) mg/dL Calcium (8.4-10.5) mg/dL Phosphorus (2.5-4.5) mg/dL Magnesium (1.7-2.2) mg/dL Total Bilirubin (0.2-1.3) mg/dL AST (15-39) U/L ALT (7-56) U/L Alkaline Phosphatase (38-133) U/L Troponin I ng/mL Total Protein (5.8-8.3) g/dL Albumin (3.0-4.8) g/dL Globulin gm/dL Albumin/Globulin Ratio (1.1-1.8) Procalcitonin (0.19-0.49) NG/ML Arterial Blood Potassium (3.6-5.2) mmol/L Urine Color (YELLOW) Urine Appearance (CLEAR) Urine pH (4.7-8.0) Ur Specific [place] (1.005-1.035) Urine Protein (<30 mg/dL) mg/dL Urine Glucose (UA) (NEGATIVE) mg/dL Urine Ketones (NEGATIVE) mg/dL Urine Blood (NEGATIVE) Urine Nitrate (NEGATIVE) Urine Bilirubin (NEGATIVE) Urine Urobilinogen (<1 E.U./dL) E.U./dL Ur Leukocyte Esterase (NEGATIVE) Oz/uL Urine RBC (0-2) /hpf Urine WBC (0-6) /hpf Urine Bacteria (NEG) Coarse Granular Casts (0-2) /hpf 06/22/16 06/22/16 06/22/16 Range/Units 10:40 07:30 06:30 WBC (4.5-11.0) 10^3/ul RBC (3.5-6.1) 10^6/uL Hgb (12.0-16.0) gm/dL Hct (36.0-48.0) % MCV (80.0-105.0) fL MCH (25.0-35.0) pg MCHC (31.0-37.0) g/dl RDW (11.5-14.5) % Plt Count (120.0-450.0) 10^3/uL MPV (7.0-11.0) fl Gran % (50.0-68.0) % Lymph % (Auto) (22.0-35.0) % Harper % (Auto) (1.0-6.0) % Eos % (Auto) (1.5-5.0) % Baso % (Auto) (0.0-3.0) % Gran # (1.4-6.5) Lymph # (1.2-3.4) Harper # (0.1-0.6) Eos # (0.0-0.7) Baso # (0.0-2.0) K/mm3 APTT (23.7-30.8) Seconds pCO2 (35-45) mm/Hg pO2 (80-100) mm/Hg HCO3 (21-28) mmol/L ABG pH (7.35-7.45) ABG Total CO2 (22-28) mmol.L ABG O2 Saturation (95-98) % ABG O2 Content (15-23) ML/dl ABG Base Excess (-2.0-3.0) mmol/L ABG Hemoglobin (11.7-17.4) g/dL ABG Carboxyhemoglobin (0.5-1.5) % POC ABG HHb (Measured) (0-5) % ABG Methemoglobin (0.0-3.0) % ABG O2 Capacity (16-24) mL/dl ABG Potassium (3.6-5.2) mmol/L Hgb O2 Saturation (95.0-98.0) % Sodium (132-148) mmol/L Chloride (98-107) mmol/L Glucose (65-105) mg/dl Lactate (0.7-2.1) mmol/L Mechanical Rate FiO2 % Tidal Volume PEEP Potassium (3.6-5.0) mmol/L Carbon Dioxide (21-33) mmol/L Anion Gap (10-20) BUN (7-21) mg/dL Creatinine (0.5-1.4) mg/dL Est GFR ( Amer) Est GFR (Non-Af Amer) POC Glucose (mg/dL) 185 H (65-110) mg/dL Random Glucose (70-110) mg/dL Calcium (8.4-10.5) mg/dL Phosphorus (2.5-4.5) mg/dL Magnesium (1.7-2.2) mg/dL Total Bilirubin (0.2-1.3) mg/dL AST (15-39) U/L ALT (7-56) U/L Alkaline Phosphatase (38-133) U/L Troponin I ng/mL Total Protein (5.8-8.3) g/dL Albumin (3.0-4.8) g/dL Globulin gm/dL Albumin/Globulin Ratio (1.1-1.8) Procalcitonin 59.96 H (0.19-0.49) NG/ML Arterial Blood Potassium (3.6-5.2) mmol/L Urine Color Yellow (YELLOW) Urine Appearance Sl cloudy (CLEAR) Urine pH 6.0 (4.7-8.0) Ur Specific [place] >= 1.030 (1.005-1.035) Urine Protein 30 H (<30 mg/dL) mg/dL Urine Glucose (UA) Negative (NEGATIVE) mg/dL Urine Ketones Negative (NEGATIVE) mg/dL Urine Blood Moderate H (NEGATIVE) Urine Nitrate Negative (NEGATIVE) Urine Bilirubin Negative (NEGATIVE) Urine Urobilinogen 0.2 (<1 E.U./dL) E.U./dL Ur Leukocyte Esterase Small H (NEGATIVE) Oz/uL Urine RBC 0 - 2 (0-2) /hpf Urine WBC 1 - 3 (0-6) /hpf Urine Bacteria Few (NEG) Coarse Granular Casts Trace H (0-2) /hpf 06/22/16 06/22/16 06/22/16 Range/Units 06:00 05:00 00:07 WBC 12.8 H (4.5-11.0) 10^3/ul RBC 3.00 L (3.5-6.1) 10^6/uL Hgb 8.8 L (12.0-16.0) gm/dL Hct 26.2 L (36.0-48.0) % MCV 87.3 (80.0-105.0) fL MCH 29.3 (25.0-35.0) pg MCHC 33.6 (31.0-37.0) g/dl RDW 14.4 (11.5-14.5) % Plt Count 180 (120.0-450.0) 10^3/uL MPV 11.3 H (7.0-11.0) fl Gran % 88.0 H (50.0-68.0) % Lymph % (Auto) 6.7 L (22.0-35.0) % Harper % (Auto) 5.2 (1.0-6.0) % Eos % (Auto) 0.1 L (1.5-5.0) % Baso % (Auto) 0.0 (0.0-3.0) % Gran # 11.30 H (1.4-6.5) Lymph # 0.9 L (1.2-3.4) Harper # 0.7 H (0.1-0.6) Eos # 0.0 (0.0-0.7) Baso # 0.00 (0.0-2.0) K/mm3 APTT 49.4 H (23.7-30.8) Seconds pCO2 28 L (35-45) mm/Hg pO2 106.0 H (80-100) mm/Hg HCO3 20.9 L (21-28) mmol/L ABG pH 7.48 H (7.35-7.45) ABG Total CO2 21.8 L (22-28) mmol.L ABG O2 Saturation 98.9 H (95-98) % ABG O2 Content 12.6 L (15-23) ML/dl ABG Base Excess -1.9 (-2.0-3.0) mmol/L ABG Hemoglobin 9.2 L (11.7-17.4) g/dL ABG Carboxyhemoglobin 1.8 H (0.5-1.5) % POC ABG HHb (Measured) 1.1 (0-5) % ABG Methemoglobin 1.3 (0.0-3.0) % ABG O2 Capacity 12.7 L (16-24) mL/dl ABG Potassium (3.6-5.2) mmol/L Hgb O2 Saturation 95.9 (95.0-98.0) % Sodium 141 (132-148) mmol/L Chloride 109 H (98-107) mmol/L Glucose (65-105) mg/dl Lactate (0.7-2.1) mmol/L Mechanical Rate FiO2 60.0 % Tidal Volume PEEP Potassium 3.2 L (3.6-5.0) mmol/L Carbon Dioxide 24 (21-33) mmol/L Anion Gap 11 (10-20) BUN 32 H (7-21) mg/dL Creatinine 1.7 H (0.5-1.4) mg/dL Est GFR ( Amer) 34 Est GFR (Non-Af Amer) 28 POC Glucose (mg/dL) 133 H (65-110) mg/dL Random Glucose 166 H (70-110) mg/dL Calcium 7.0 L (8.4-10.5) mg/dL Phosphorus 4.3 (2.5-4.5) mg/dL Magnesium 1.2 L (1.7-2.2) mg/dL Total Bilirubin 0.5 (0.2-1.3) mg/dL AST 76 H (15-39) U/L ALT 68 H (7-56) U/L Alkaline Phosphatase 76 (38-133) U/L Troponin I 31.70 H* D ng/mL Total Protein 5.4 L (5.8-8.3) g/dL Albumin 2.5 L (3.0-4.8) g/dL Globulin 2.9 gm/dL Albumin/Globulin Ratio 0.9 L (1.1-1.8) Procalcitonin (0.19-0.49) NG/ML Arterial Blood Potassium (3.6-5.2) mmol/L Urine Color (YELLOW) Urine Appearance (CLEAR) Urine pH (4.7-8.0) Ur Specific [place] (1.005-1.035) Urine Protein (<30 mg/dL) mg/dL Urine Glucose (UA) (NEGATIVE) mg/dL Urine Ketones (NEGATIVE) mg/dL Urine Blood (NEGATIVE) Urine Nitrate (NEGATIVE) Urine Bilirubin (NEGATIVE) Urine Urobilinogen (<1 E.U./dL) E.U./dL Ur Leukocyte Esterase (NEGATIVE) Oz/uL Urine RBC (0-2) /hpf Urine WBC (0-6) /hpf Urine Bacteria (NEG) Coarse Granular Casts (0-2) /hpf 06/21/16 06/21/16 06/21/16 Range/Units 23:03 22:00 21:06 WBC (4.5-11.0) 10^3/ul RBC (3.5-6.1) 10^6/uL Hgb (12.0-16.0) gm/dL Hct (36.0-48.0) % MCV (80.0-105.0) fL MCH (25.0-35.0) pg MCHC (31.0-37.0) g/dl RDW (11.5-14.5) % Plt Count (120.0-450.0) 10^3/uL MPV (7.0-11.0) fl Gran % (50.0-68.0) % Lymph % (Auto) (22.0-35.0) % Harper % (Auto) (1.0-6.0) % Eos % (Auto) (1.5-5.0) % Baso % (Auto) (0.0-3.0) % Gran # (1.4-6.5) Lymph # (1.2-3.4) Harper # (0.1-0.6) Eos # (0.0-0.7) Baso # (0.0-2.0) K/mm3 APTT (23.7-30.8) Seconds pCO2 (35-45) mm/Hg pO2 (80-100) mm/Hg HCO3 (21-28) mmol/L ABG pH (7.35-7.45) ABG Total CO2 (22-28) mmol.L ABG O2 Saturation (95-98) % ABG O2 Content (15-23) ML/dl ABG Base Excess (-2.0-3.0) mmol/L ABG Hemoglobin (11.7-17.4) g/dL ABG Carboxyhemoglobin (0.5-1.5) % POC ABG HHb (Measured) (0-5) % ABG Methemoglobin (0.0-3.0) % ABG O2 Capacity (16-24) mL/dl ABG Potassium (3.6-5.2) mmol/L Hgb O2 Saturation (95.0-98.0) % Sodium (132-148) mmol/L Chloride (98-107) mmol/L Glucose (65-105) mg/dl Lactate (0.7-2.1) mmol/L Mechanical Rate FiO2 % Tidal Volume PEEP Potassium (3.6-5.0) mmol/L Carbon Dioxide (21-33) mmol/L Anion Gap (10-20) BUN (7-21) mg/dL Creatinine (0.5-1.4) mg/dL Est GFR ( Amer) Est GFR (Non-Af Amer) POC Glucose (mg/dL) 127 H 100 111 H (65-110) mg/dL Random Glucose (70-110) mg/dL Calcium (8.4-10.5) mg/dL Phosphorus (2.5-4.5) mg/dL Magnesium (1.7-2.2) mg/dL Total Bilirubin (0.2-1.3) mg/dL AST (15-39) U/L ALT (7-56) U/L Alkaline Phosphatase (38-133) U/L Troponin I ng/mL Total Protein (5.8-8.3) g/dL Albumin (3.0-4.8) g/dL Globulin gm/dL Albumin/Globulin Ratio (1.1-1.8) Procalcitonin (0.19-0.49) NG/ML Arterial Blood Potassium (3.6-5.2) mmol/L Urine Color (YELLOW) Urine Appearance (CLEAR) Urine pH (4.7-8.0) Ur Specific [place] (1.005-1.035) Urine Protein (<30 mg/dL) mg/dL Urine Glucose (UA) (NEGATIVE) mg/dL Urine Ketones (NEGATIVE) mg/dL Urine Blood (NEGATIVE) Urine Nitrate (NEGATIVE) Urine Bilirubin (NEGATIVE) Urine Urobilinogen (<1 E.U./dL) E.U./dL Ur Leukocyte Esterase (NEGATIVE) Oz/uL Urine RBC (0-2) /hpf Urine WBC (0-6) /hpf Urine Bacteria (NEG) Coarse Granular Casts (0-2) /hpf 06/21/16 06/21/16 06/21/16 Range/Units 20:14 18:12 17:01 WBC (4.5-11.0) 10^3/ul RBC (3.5-6.1) 10^6/uL Hgb (12.0-16.0) gm/dL Hct (36.0-48.0) % MCV (80.0-105.0) fL MCH (25.0-35.0) pg MCHC (31.0-37.0) g/dl RDW (11.5-14.5) % Plt Count (120.0-450.0) 10^3/uL MPV (7.0-11.0) fl Gran % (50.0-68.0) % Lymph % (Auto) (22.0-35.0) % Harper % (Auto) (1.0-6.0) % Eos % (Auto) (1.5-5.0) % Baso % (Auto) (0.0-3.0) % Gran # (1.4-6.5) Lymph # (1.2-3.4) Harper # (0.1-0.6) Eos # (0.0-0.7) Baso # (0.0-2.0) K/mm3 APTT (23.7-30.8) Seconds pCO2 (35-45) mm/Hg pO2 (80-100) mm/Hg HCO3 (21-28) mmol/L ABG pH (7.35-7.45) ABG Total CO2 (22-28) mmol.L ABG O2 Saturation (95-98) % ABG O2 Content (15-23) ML/dl ABG Base Excess (-2.0-3.0) mmol/L ABG Hemoglobin (11.7-17.4) g/dL ABG Carboxyhemoglobin (0.5-1.5) % POC ABG HHb (Measured) (0-5) % ABG Methemoglobin (0.0-3.0) % ABG O2 Capacity (16-24) mL/dl ABG Potassium (3.6-5.2) mmol/L Hgb O2 Saturation (95.0-98.0) % Sodium (132-148) mmol/L Chloride (98-107) mmol/L Glucose (65-105) mg/dl Lactate (0.7-2.1) mmol/L Mechanical Rate FiO2 % Tidal Volume PEEP Potassium (3.6-5.0) mmol/L Carbon Dioxide (21-33) mmol/L Anion Gap (10-20) BUN (7-21) mg/dL Creatinine (0.5-1.4) mg/dL Est GFR ( Amer) Est GFR (Non-Af Amer) POC Glucose (mg/dL) 135 H 152 H 191 H (65-110) mg/dL Random Glucose (70-110) mg/dL Calcium (8.4-10.5) mg/dL Phosphorus (2.5-4.5) mg/dL Magnesium (1.7-2.2) mg/dL Total Bilirubin (0.2-1.3) mg/dL AST (15-39) U/L ALT (7-56) U/L Alkaline Phosphatase (38-133) U/L Troponin I ng/mL Total Protein (5.8-8.3) g/dL Albumin (3.0-4.8) g/dL Globulin gm/dL Albumin/Globulin Ratio (1.1-1.8) Procalcitonin (0.19-0.49) NG/ML Arterial Blood Potassium (3.6-5.2) mmol/L Urine Color (YELLOW) Urine Appearance (CLEAR) Urine pH (4.7-8.0) Ur Specific [place] (1.005-1.035) Urine Protein (<30 mg/dL) mg/dL Urine Glucose (UA) (NEGATIVE) mg/dL Urine Ketones (NEGATIVE) mg/dL Urine Blood (NEGATIVE) Urine Nitrate (NEGATIVE) Urine Bilirubin (NEGATIVE) Urine Urobilinogen (<1 E.U./dL) E.U./dL Ur Leukocyte Esterase (NEGATIVE) Oz/uL Urine RBC (0-2) /hpf Urine WBC (0-6) /hpf Urine Bacteria (NEG) Coarse Granular Casts (0-2) /hpf Laboratory Results - last 24 hr 06/21/16 06/21/16 06/21/16 17:01 18:12 20:14 WBC RBC Hgb Hct MCV MCH MCHC RDW Plt Count MPV Gran % Lymph % (Auto) Harper % (Auto) Eos % (Auto) Baso % (Auto) Gran # Lymph # Harper # Eos # Baso # APTT pCO2 pO2 HCO3 ABG pH ABG Total CO2 ABG O2 Saturation ABG O2 Content ABG Base Excess ABG Hemoglobin ABG Carboxyhemoglobin POC ABG HHb (Measured) ABG Methemoglobin ABG O2 Capacity ABG Potassium Hgb O2 Saturation Glucose Lactate Mechanical Rate FiO2 Tidal Volume PEEP Sodium Potassium Chloride Carbon Dioxide Anion Gap BUN Creatinine Est GFR ( Amer) Est GFR (Non-Af Amer) POC Glucose (mg/dL) 191 H 152 H 135 H Random Glucose Calcium Phosphorus Magnesium Total Bilirubin AST ALT Alkaline Phosphatase Troponin I Total Protein Albumin Globulin Albumin/Globulin Ratio Procalcitonin Arterial Blood Potassium Urine Color Urine Appearance Urine pH Ur Specific [place] Urine Protein Urine Glucose (UA) Urine Ketones Urine Blood Urine Nitrate Urine Bilirubin Urine Urobilinogen Ur Leukocyte Esterase Urine RBC Urine WBC Urine Bacteria Coarse Granular Casts 06/21/16 06/21/16 06/21/16 21:06 22:00 23:03 WBC RBC Hgb Hct MCV MCH MCHC RDW Plt Count MPV Gran % Lymph % (Auto) Harper % (Auto) Eos % (Auto) Baso % (Auto) Gran # Lymph # Harper # Eos # Baso # APTT pCO2 pO2 HCO3 ABG pH ABG Total CO2 ABG O2 Saturation ABG O2 Content ABG Base Excess ABG Hemoglobin ABG Carboxyhemoglobin POC ABG HHb (Measured) ABG Methemoglobin ABG O2 Capacity ABG Potassium Hgb O2 Saturation Glucose Lactate Mechanical Rate FiO2 Tidal Volume PEEP Sodium Potassium Chloride Carbon Dioxide Anion Gap BUN Creatinine Est GFR ( Amer) Est GFR (Non-Af Amer) POC Glucose (mg/dL) 111 H 100 127 H Random Glucose Calcium Phosphorus Magnesium Total Bilirubin AST ALT Alkaline Phosphatase Troponin I Total Protein Albumin Globulin Albumin/Globulin Ratio Procalcitonin Arterial Blood Potassium Urine Color Urine Appearance Urine pH Ur Specific [place] Urine Protein Urine Glucose (UA) Urine Ketones Urine Blood Urine Nitrate Urine Bilirubin Urine Urobilinogen Ur Leukocyte Esterase Urine RBC Urine WBC Urine Bacteria Coarse Granular Casts 06/22/16 06/22/16 06/22/16 00:07 05:00 06:00 WBC 12.8 H RBC 3.00 L Hgb 8.8 L Hct 26.2 L MCV 87.3 MCH 29.3 MCHC 33.6 RDW 14.4 Plt Count 180 MPV 11.3 H Gran % 88.0 H Lymph % (Auto) 6.7 L Harper % (Auto) 5.2 Eos % (Auto) 0.1 L Baso % (Auto) 0.0 Gran # 11.30 H Lymph # 0.9 L Harper # 0.7 H Eos # 0.0 Baso # 0.00 APTT 49.4 H pCO2 28 L pO2 106.0 H HCO3 20.9 L ABG pH 7.48 H ABG Total CO2 21.8 L ABG O2 Saturation 98.9 H ABG O2 Content 12.6 L ABG Base Excess -1.9 ABG Hemoglobin 9.2 L ABG Carboxyhemoglobin 1.8 H POC ABG HHb (Measured) 1.1 ABG Methemoglobin 1.3 ABG O2 Capacity 12.7 L ABG Potassium Hgb O2 Saturation 95.9 Glucose Lactate Mechanical Rate FiO2 60.0 Tidal Volume PEEP Sodium 141 Potassium 3.2 L Chloride 109 H Carbon Dioxide 24 Anion Gap 11 BUN 32 H Creatinine 1.7 H Est GFR ( Amer) 34 Est GFR (Non-Af Amer) 28 POC Glucose (mg/dL) 133 H Random Glucose 166 H Calcium 7.0 L Phosphorus 4.3 Magnesium 1.2 L Total Bilirubin 0.5 AST 76 H ALT 68 H Alkaline Phosphatase 76 Troponin I 31.70 H* D Total Protein 5.4 L Albumin 2.5 L Globulin 2.9 Albumin/Globulin Ratio 0.9 L Procalcitonin Arterial Blood Potassium Urine Color Urine Appearance Urine pH Ur Specific [place] Urine Protein Urine Glucose (UA) Urine Ketones Urine Blood Urine Nitrate Urine Bilirubin Urine Urobilinogen Ur Leukocyte Esterase Urine RBC Urine WBC Urine Bacteria Coarse Granular Casts 06/22/16 06/22/16 06/22/16 06:30 07:30 10:40 WBC RBC Hgb Hct MCV MCH MCHC RDW Plt Count MPV Gran % Lymph % (Auto) Harper % (Auto) Eos % (Auto) Baso % (Auto) Gran # Lymph # Harper # Eos # Baso # APTT pCO2 pO2 HCO3 ABG pH ABG Total CO2 ABG O2 Saturation ABG O2 Content ABG Base Excess ABG Hemoglobin ABG Carboxyhemoglobin POC ABG HHb (Measured) ABG Methemoglobin ABG O2 Capacity ABG Potassium Hgb O2 Saturation Glucose Lactate Mechanical Rate FiO2 Tidal Volume PEEP Sodium Potassium Chloride Carbon Dioxide Anion Gap BUN Creatinine Est GFR ( Amer) Est GFR (Non-Af Amer) POC Glucose (mg/dL) 185 H Random Glucose Calcium Phosphorus Magnesium Total Bilirubin AST ALT Alkaline Phosphatase Troponin I Total Protein Albumin Globulin Albumin/Globulin Ratio Procalcitonin 59.96 H Arterial Blood Potassium Urine Color Yellow Urine Appearance Sl cloudy Urine pH 6.0 Ur Specific [place] >= 1.030 Urine Protein 30 H Urine Glucose (UA) Negative Urine Ketones Negative Urine Blood Moderate H Urine Nitrate Negative Urine Bilirubin Negative Urine Urobilinogen 0.2 Ur Leukocyte Esterase Small H Urine RBC 0 - 2 Urine WBC 1 - 3 Urine Bacteria Few Coarse Granular Casts Trace H 06/22/16 06/22/16 06/22/16 11:31 13:02 15:04 WBC RBC Hgb Hct MCV MCH MCHC RDW Plt Count MPV Gran % Lymph % (Auto) Harper % (Auto) Eos % (Auto) Baso % (Auto) Gran # Lymph # Harper # Eos # Baso # APTT pCO2 pO2 HCO3 ABG pH ABG Total CO2 ABG O2 Saturation ABG O2 Content ABG Base Excess ABG Hemoglobin ABG Carboxyhemoglobin POC ABG HHb (Measured) ABG Methemoglobin ABG O2 Capacity ABG Potassium Hgb O2 Saturation Glucose Lactate Mechanical Rate FiO2 Tidal Volume PEEP Sodium Potassium Chloride Carbon Dioxide Anion Gap BUN Creatinine Est GFR ( Amer) Est GFR (Non-Af Amer) POC Glucose (mg/dL) 216 H 218 H 194 H Random Glucose Calcium Phosphorus Magnesium Total Bilirubin AST ALT Alkaline Phosphatase Troponin I Total Protein Albumin Globulin Albumin/Globulin Ratio Procalcitonin Arterial Blood Potassium Urine Color Urine Appearance Urine pH Ur Specific [place] Urine Protein Urine Glucose (UA) Urine Ketones Urine Blood Urine Nitrate Urine Bilirubin Urine Urobilinogen Ur Leukocyte Esterase Urine RBC Urine WBC Urine Bacteria Coarse Granular Casts 03/22/17 03/22/17 03/22/17 15:50 15:57 16:55 WBC RBC Hgb Hct MCV MCH MCHC RDW Plt Count MPV Gran % Lymph % (Auto) Harper % (Auto) Eos % (Auto) Baso % (Auto) Gran # Lymph # Harper # Eos # Baso # APTT 55.5 H pCO2 35 pO2 73.0 L HCO3 19.8 L ABG pH 7.36 ABG Total CO2 20.9 L ABG O2 Saturation 96.5 ABG O2 Content ABG Base Excess -4.9 L ABG Hemoglobin ABG Carboxyhemoglobin POC ABG HHb (Measured) ABG Methemoglobin ABG O2 Capacity ABG Potassium 3.9 Hgb O2 Saturation Glucose 208 H Lactate 1.6 Mechanical Rate 24 FiO2 50.0 Tidal Volume 350 PEEP 15 Sodium 143.0 Potassium Chloride 114.0 H Carbon Dioxide Anion Gap BUN Creatinine Est GFR ( Amer) Est GFR (Non-Af Amer) POC Glucose (mg/dL) 179 H Random Glucose Calcium Phosphorus Magnesium Total Bilirubin AST ALT Alkaline Phosphatase Troponin I Total Protein Albumin Globulin Albumin/Globulin Ratio Procalcitonin Arterial Blood Potassium 3.9 Urine Color Urine Appearance Urine pH Ur Specific [place] Urine Protein Urine Glucose (UA) Urine Ketones Urine Blood Urine Nitrate Urine Bilirubin Urine Urobilinogen Ur Leukocyte Esterase Urine RBC Urine WBC Urine Bacteria Coarse Granular Casts Critical Care Progress Note - Nutrition Nutrition: Nutrition Category Date Time Status NPO Diet [DIET] Diets 06/21/16 Lunch Ordered Addendum Addendum: 06/22/16 17:37 patient was seen and examined at bedside with Dr. Anastacio Huertas. Please see Dr. Soliman note
[2016-06-22 16:00] LABS: ABG MECHANICAL RATE 24; ARTERIAL BLOOD GAS HCO3 19.8 mmol/L (21-28); ARTERIAL BLOOD GAS PH 7.36 (7.35-7.45); ATERIAL BLOOD GAS PEEP 15
[2016-06-22] MEDS: Metoprolol 1 mg/ml Inj IVP PRN (20:29)
[2016-06-23] MEDS: Insulin Lispro (humaLOG) LOW Coverage SC SCH ×5 (00:46→08:54)
[2016-06-23] MEDS: Metoprolol 1 mg/ml Inj IVP PRN (02:20)
[2016-06-23] MEDS: DOBUTamine 500mg/250ml D5W 250 ML IV PRN ×2 (04:35→10:40)
[2016-06-23] MEDS: Heparin25000 units/250ml 1/2NS 250 ML IV SCH (05:01)
[2016-06-23] MEDS: Aztreonam 1 Gm in NS 100mL 100 ML IVPB SCH ×3 (05:02→21:35)
[2016-06-23 05:28] LABS: ARTERIAL BLOOD GAS HCO3 20.8 mmol/L (21-28); ARTERIAL BLOOD GAS O2 CAPACITY 12.3 mL/dl (16-24); ARTERIAL BLOOD GAS O2 CONTENT 12.1 ML/dl (15-23); ARTERIAL BLOOD GAS PH 7.42 (7.35-7.45); ARTERIAL BLOOD HGB O2 SAT 95.5 % (95.0-98.0); HHB 1.6 % (0-5); METHEMOGLOBIN 0.9 % (0.0-3.0)
[2016-06-23 06:15] LABS: ADD MANUAL DIFF? NO
[2016-06-23 06:17] LABS: BASO # 0.01 K/mm3 (0.0-2.0); BASO % 0.1 % (0.0-3.0); GRAN # 11.34 (1.4-6.5); HEMATOCRIT 28.1 % (36.0-48.0); LYMPH # 0.9 (1.2-3.4); LYMPH % 6.8 % (22.0-35.0); MEAN CELL VOLUME 88.9 fL (80.0-105.0); MEAN CORPUSCULAR HEMOGLOBIN 29.7 pg (25.0-35.0); MEAN CORPUSCULAR HGB CONC 33.5 g/dl (31.0-37.0); MEAN PLATELET VOLUME 11.2 fl (7.0-11.0); MONO # 0.7 (0.1-0.6); MONO % 5.1 % (1.0-6.0); PLATELET COUNT 183 10^3/uL (120.0-450.0); RED CELL DISTRIBUTION WIDTH 14.5 % (11.5-14.5); WHITE BLOOD COUNT 12.9 10^3/ul (4.5-11.0)
[2016-06-23 06:41] LABS: ALB/GLOB RATIO 0.8 (1.1-1.8); BILIRUBIN,TOTAL 0.4 mg/dL (0.2-1.3); POTASSIUM 3.5 mmol/L (3.6-5.0); TOTAL PROTEIN 5.7 g/dL (5.8-8.3)
[2016-06-23 07:13] LABS: CALCIUM 6.9 mg/dL (8.4-10.5); TROPONIN I 25.5 ng/mL
[2016-06-23] MEDS ORDERED: Potassium Chloride 20 mEq 100 ML IVPB ONE (07:57)
--- NOTE | 2016-06-23 09:25 | CP.CCUPN ---
<Symone Koehler - Last Filed: 06/23/16 13:15> CCU Subjective - Physician Review Events Since Last Encounter (Free Text): 06/23/16 09:05 Patient seen and examined bedside. Tmax in past 24 hours 100.4. Still not responsive to painful stimuli. Failed pressure support trial yesterday due to respiratory distress and acute pulmonary edema, was placed back on PRVC. Currently on PRVC 350/24/50%/10. Will be terminally extubated today. Overbreathing the vent at 30-36 bpm. Critical Care Time Spent (in minutes): 30 CCU Objective - Vital Signs / Intake & Output Vital Signs (Last 4 hours): Vital Signs Resp Pulse Ox 06/23/16 08:00 30 H 98 Intake and Output (Last 8hrs): Intake & Output 06/22/16 06/23/16 06/23/16 22:59 06:59 14:59 Intake Total 918 1030 Output Total 650 850 Balance 268 180 Weight 187 lb 12.8 oz Intake: IV 220 Left Antecubital 0 Right Antecubital 0 Heparin 120 dobutamine 100 Oral 0 Tube Feeding 410 TPN/PPN 0 Blood Product 0 Lipid 0 Albumin 0 Other 918 400 Output: Urine 650 850 Urethral (Menezes) 650 850 Stool 0 Urine/Stool Mix 0 Emesis 0 Oral Regurgitation 0 Other 0 Other: Voiding Method Indwelling Catheter # Voids Urethral ([place]zes) 0 # Bowel Movements 0 - Physical Exam Head: Positive for: Atraumatic, Normocephalic Conjunctiva: Positive for: Normal Mouth: Positive for: Other ( ET tube) Respiratory/Chest: Positive for: Respiratory Distress, Rales (Diffuse rales bilaterally), Other (Crackles ) Cardiovascular: Positive for: Regular Rate and Rhythm, Normal S1, S2. Negative for: Murmurs Abdomen: Negative for: Tenderness, Distention, Normal Bowel Sounds Upper Extremity: Positive for: Edema Lower Extremity: Positive for: Edema Neurological: Positive for: Other (unresponsive to pain or any stimulation). Negative for: GCS=15, CN II-XII Intact Skin: Positive for: Warm, Dry. Negative for: Rashes Psychiatric: Negative for: Alert, Oriented x 3 - Medications Active Medications: Active Medications Generic Name Dose Route Start Last Admin Trade Name Freq PRN Reason Stop Dose Admin Acetaminophen 650 mg 06/21/16 18:24 06/22/16 06:00 Tylenol 650 Mg Supp RC 650 mg Q4H PRN Administration Fever >100.4 F Aspirin 81 mg 06/21/16 10:00 06/22/16 09:50 Ecotrin PO 81 mg DAILY MICHAEL Administration Atorvastatin Calcium 20 mg 06/19/16 17:00 06/22/16 17:17 Lipitor PO 20 mg DIN MICHAEL Administration Clopidogrel Bisulfate 75 mg 06/20/16 10:00 06/22/16 09:51 Plavix PO 75 mg DAILY MICHAEL Administration Norepinephrine Bitartrate 4 mg 254 mls @ 15.24 mls/hr 06/19/16 14:15 06/20/16 07:00 / Dextrose IV 0 mcg/min .[id number] PRN Titration TITRATE PER MD ORDER Protocol 4 MCG/MIN Dexmedetomidine HCl 100 mls @ 4.15 mls/hr 06/19/16 15:08 06/22/16 03:55 Precedex 4 Mcg/Ml (100 Ml) IV 0.3 mcg/kg/hr .Q24H PRN Titration Agitation Protocol 0.2 MCG/KG/HR Heparin Sodium/Sodium Chloride 250 mls @ 9.961 mls/hr 06/19/16 15:45 06/23/16 05:01 Heparin 42459 Units/250ml 1/2 Normal Saline IV 10 mls/hr .Q24H MICHAEL Administration Protocol 12 UNITS/KG/HR Levetiracetam 100 mls @ 400 mls/hr 06/19/16 22:00 06/22/16 21:39 Keppra 500mg Ivpb IV 400 mls/hr Q12 MICHAEL Administration Doxycycline Hyclate 100 mg/ 100 mls @ 100 mls/hr 06/20/16 10:30 06/22/16 21:58 Sodium Chloride IVPB 100 mls/hr Q12 MICHAEL Administration Protocol Aztreonam 100 mls @ 100 mls/hr 06/20/16 14:45 06/23/16 05:02 Azactam 1 Gm IVPB 06/27/16 14:46 100 mls/hr Q8 MICHAEL Administration Protocol Insulin Human Regular 100 100 mls @ 4 mls/hr 06/21/16 12:33 06/21/16 22:20 units/ Sodium Chloride IV 0 units/hr .Q24H PRN Titration TITRATE PER MD ORDER Protocol 4 UNITS/HR Acetaminophen 100 mls @ 400 mls/hr 06/22/16 15:37 06/22/16 20:29 Ofirmev IVPB 06/24/16 15:38 400 mls/hr Q6H PRN Administration Fever >100.4 F Dobutamine HCl/Dextrose 250 mls @ 12.664 mls/hr 06/23/16 04:04 06/23/16 04:35 Dobutamine/Dextrose 5% 500mg/250ml IV 12.664 mls/hr .[id number] PRN Administration TITRATE PER PROTOCOL Protocol 5 MCG/KG/MIN Potassium Chloride 100 mls @ 50 mls/hr 06/23/16 07:57 06/23/16 08:30 Potassium Chloride 20 Meq/100 Ml IVPB 06/23/16 09:56 50 mls/hr ONCE ONE Administration Insulin Human Lispro 0 units 06/22/16 12:00 06/23/16 08:54 Humalog Low SC 3 units Q2 MICHAEL Administration Protocol Metoprolol Tartrate 5 mg 06/22/16 19:23 06/23/16 02:20 Lopressor IVP 5 mg Q6 PRN Administration HR > 100 Pantoprazole Sodium 40 mg 06/20/16 10:00 06/22/16 09:52 Protonix Inj IVP 40 mg DAILY MICHAEL Administration - Patient Studies Lab Studies: Microbiology Studies 06/22/16 08:30 Blood Culture - Preliminary Blood-Venous NO GROWTH AFTER 24 HOURS 06/22/16 08:00 Blood Culture - Preliminary Blood-Venous NO GROWTH AFTER 24 HOURS 06/19/16 16:30 Blood Culture - Preliminary Blood NO GROWTH AFTER 3 DAYS Lab Studies 06/23/16 06/23/16 06/23/16 Range/Units 06:05 06:02 05:20 WBC 12.9 H (4.5-11.0) 10^3/ul RBC 3.16 L (3.5-6.1) 10^6/uL Hgb 9.4 L (12.0-16.0) gm/dL Hct 28.1 L (36.0-48.0) % MCV 88.9 (80.0-105.0) fL MCH 29.7 (25.0-35.0) pg MCHC 33.5 (31.0-37.0) g/dl RDW 14.5 (11.5-14.5) % Plt Count 183 (120.0-450.0) 10^3/uL MPV 11.2 H (7.0-11.0) fl Gran % 88.0 H (50.0-68.0) % Lymph % (Auto) 6.8 L (22.0-35.0) % [place] % (Auto) 5.1 (1.0-6.0) % Eos % (Auto) 0.0 L (1.5-5.0) % Baso % (Auto) 0.1 (0.0-3.0) % Gran # 11.34 H (1.4-6.5) Lymph # 0.9 L (1.2-3.4) [place] # 0.7 H (0.1-0.6) Eos # 0.0 (0.0-0.7) Baso # 0.01 (0.0-2.0) K/mm3 APTT (23.7-30.8) Seconds pCO2 32 L (35-45) mm/Hg pO2 87.0 (80-100) mm/Hg HCO3 20.8 L (21-28) mmol/L ABG pH 7.42 (7.35-7.45) ABG Total CO2 21.8 L (22-28) mmol.L ABG O2 Saturation 98.4 H (95-98) % ABG O2 Content 12.1 L (15-23) ML/dl ABG Base Excess -3.1 L (-2.0-3.0) mmol/L ABG Hemoglobin 8.9 L (11.7-17.4) g/dL ABG Carboxyhemoglobin 2.0 H (0.5-1.5) % POC ABG HHb (Measured) 1.6 (0-5) % ABG Methemoglobin 0.9 (0.0-3.0) % ABG O2 Capacity 12.3 L (16-24) mL/dl ABG Potassium (3.6-5.2) mmol/L Hgb O2 Saturation 95.5 (95.0-98.0) % Glucose (65-105) mg/dl Lactate (0.7-2.1) mmol/L Mechanical Rate FiO2 50.0 % Tidal Volume PEEP Sodium 144 (132-148) mmol/L Potassium 3.5 L (3.6-5.0) mmol/L Chloride 110 H (98-107) mmol/L Carbon Dioxide 23 (21-33) mmol/L Anion Gap 15 (10-20) BUN 42 H (7-21) mg/dL Creatinine 1.9 H (0.5-1.4) mg/dL Est GFR ( Amer) 30 Est GFR (Non-Af Amer) 25 POC Glucose (mg/dL) 281 H (65-110) mg/dL Random Glucose 260 H (70-110) mg/dL Calcium 6.9 L* (8.4-10.5) mg/dL Total Bilirubin 0.4 (0.2-1.3) mg/dL AST 53 H (15-39) U/L ALT 45 (7-56) U/L Alkaline Phosphatase 99 (38-133) U/L Troponin I 25.50 H* ng/mL Total Protein 5.7 L (5.8-8.3) g/dL Albumin 2.6 L (3.0-4.8) g/dL Globulin 3.2 gm/dL Albumin/Globulin Ratio 0.8 L (1.1-1.8) Procalcitonin (0.19-0.49) NG/ML Arterial Blood Potassium (3.6-5.2) mmol/L Urine Color (YELLOW) Urine Appearance (CLEAR) Urine pH (4.7-8.0) Ur Specific [place] (1.005-1.035) Urine Protein (<30 mg/dL) mg/dL Urine Glucose (UA) (NEGATIVE) mg/dL Urine Ketones (NEGATIVE) mg/dL Urine Blood (NEGATIVE) Urine Nitrate (NEGATIVE) Urine Bilirubin (NEGATIVE) Urine Urobilinogen (<1 E.U./dL) E.U./dL Ur Leukocyte Esterase (NEGATIVE) Oz/uL Urine RBC (0-2) /hpf Urine WBC (0-6) /hpf Urine Bacteria (NEG) Coarse Granular Casts (0-2) /hpf 06/23/16 06/23/16 06/22/16 Range/Units 03:50 01:48 23:00 WBC (4.5-11.0) 10^3/ul RBC (3.5-6.1) 10^6/uL Hgb (12.0-16.0) gm/dL Hct (36.0-48.0) % MCV (80.0-105.0) fL MCH (25.0-35.0) pg MCHC (31.0-37.0) g/dl RDW (11.5-14.5) % Plt Count (120.0-450.0) 10^3/uL MPV (7.0-11.0) fl Gran % (50.0-68.0) % Lymph % (Auto) (22.0-35.0) % [place] % (Auto) (1.0-6.0) % Eos % (Auto) (1.5-5.0) % Baso % (Auto) (0.0-3.0) % Gran # (1.4-6.5) Lymph # (1.2-3.4) [place] # (0.1-0.6) Eos # (0.0-0.7) Baso # (0.0-2.0) K/mm3 APTT 57.8 H (23.7-30.8) Seconds pCO2 (35-45) mm/Hg pO2 (80-100) mm/Hg HCO3 (21-28) mmol/L ABG pH (7.35-7.45) ABG Total CO2 (22-28) mmol.L ABG O2 Saturation (95-98) % ABG O2 Content (15-23) ML/dl ABG Base Excess (-2.0-3.0) mmol/L ABG Hemoglobin (11.7-17.4) g/dL ABG Carboxyhemoglobin (0.5-1.5) % POC ABG HHb (Measured) (0-5) % ABG Methemoglobin (0.0-3.0) % ABG O2 Capacity (16-24) mL/dl ABG Potassium (3.6-5.2) mmol/L Hgb O2 Saturation (95.0-98.0) % Glucose (65-105) mg/dl Lactate (0.7-2.1) mmol/L Mechanical Rate FiO2 % Tidal Volume PEEP Sodium (132-148) mmol/L Potassium (3.6-5.0) mmol/L Chloride (98-107) mmol/L Carbon Dioxide (21-33) mmol/L Anion Gap (10-20) BUN (7-21) mg/dL Creatinine (0.5-1.4) mg/dL Est GFR ( Amer) Est GFR (Non-Af Amer) POC Glucose (mg/dL) 248 H 257 H 202 H (65-110) mg/dL Random Glucose (70-110) mg/dL Calcium (8.4-10.5) mg/dL Total Bilirubin (0.2-1.3) mg/dL AST (15-39) U/L ALT (7-56) U/L Alkaline Phosphatase (38-133) U/L Troponin I ng/mL Total Protein (5.8-8.3) g/dL Albumin (3.0-4.8) g/dL Globulin gm/dL Albumin/Globulin Ratio (1.1-1.8) Procalcitonin (0.19-0.49) NG/ML Arterial Blood Potassium (3.6-5.2) mmol/L Urine Color (YELLOW) Urine Appearance (CLEAR) Urine pH (4.7-8.0) Ur Specific [place] (1.005-1.035) Urine Protein (<30 mg/dL) mg/dL Urine Glucose (UA) (NEGATIVE) mg/dL Urine Ketones (NEGATIVE) mg/dL Urine Blood (NEGATIVE) Urine Nitrate (NEGATIVE) Urine Bilirubin (NEGATIVE) Urine Urobilinogen (<1 E.U./dL) E.U./dL Ur Leukocyte Esterase (NEGATIVE) Oz/uL Urine RBC (0-2) /hpf Urine WBC (0-6) /hpf Urine Bacteria (NEG) Coarse Granular Casts (0-2) /hpf 06/22/16 06/22/16 06/22/16 Range/Units 21:01 19:10 16:55 WBC (4.5-11.0) 10^3/ul RBC (3.5-6.1) 10^6/uL Hgb (12.0-16.0) gm/dL Hct (36.0-48.0) % MCV (80.0-105.0) fL MCH (25.0-35.0) pg MCHC (31.0-37.0) g/dl RDW (11.5-14.5) % Plt Count (120.0-450.0) 10^3/uL MPV (7.0-11.0) fl Gran % (50.0-68.0) % Lymph % (Auto) (22.0-35.0) % [place] % (Auto) (1.0-6.0) % Eos % (Auto) (1.5-5.0) % Baso % (Auto) (0.0-3.0) % Gran # (1.4-6.5) Lymph # (1.2-3.4) [place] # (0.1-0.6) Eos # (0.0-0.7) Baso # (0.0-2.0) K/mm3 APTT (23.7-30.8) Seconds pCO2 (35-45) mm/Hg pO2 (80-100) mm/Hg HCO3 (21-28) mmol/L ABG pH (7.35-7.45) ABG Total CO2 (22-28) mmol.L ABG O2 Saturation (95-98) % ABG O2 Content (15-23) ML/dl ABG Base Excess (-2.0-3.0) mmol/L ABG Hemoglobin (11.7-17.4) g/dL ABG Carboxyhemoglobin (0.5-1.5) % POC ABG HHb (Measured) (0-5) % ABG Methemoglobin (0.0-3.0) % ABG O2 Capacity (16-24) mL/dl ABG Potassium (3.6-5.2) mmol/L Hgb O2 Saturation (95.0-98.0) % Glucose (65-105) mg/dl Lactate (0.7-2.1) mmol/L Mechanical Rate FiO2 % Tidal Volume PEEP Sodium (132-148) mmol/L Potassium (3.6-5.0) mmol/L Chloride (98-107) mmol/L Carbon Dioxide (21-33) mmol/L Anion Gap (10-20) BUN (7-21) mg/dL Creatinine (0.5-1.4) mg/dL Est GFR ( Amer) Est GFR (Non-Af Amer) POC Glucose (mg/dL) 257 H 245 H 179 H (65-110) mg/dL Random Glucose (70-110) mg/dL Calcium (8.4-10.5) mg/dL Total Bilirubin (0.2-1.3) mg/dL AST (15-39) U/L ALT (7-56) U/L Alkaline Phosphatase (38-133) U/L Troponin I ng/mL Total Protein (5.8-8.3) g/dL Albumin (3.0-4.8) g/dL Globulin gm/dL Albumin/Globulin Ratio (1.1-1.8) Procalcitonin (0.19-0.49) NG/ML Arterial Blood Potassium (3.6-5.2) mmol/L Urine Color (YELLOW) Urine Appearance (CLEAR) Urine pH (4.7-8.0) Ur Specific [place] (1.005-1.035) Urine Protein (<30 mg/dL) mg/dL Urine Glucose (UA) (NEGATIVE) mg/dL Urine Ketones (NEGATIVE) mg/dL Urine Blood (NEGATIVE) Urine Nitrate (NEGATIVE) Urine Bilirubin (NEGATIVE) Urine Urobilinogen (<1 E.U./dL) E.U./dL Ur Leukocyte Esterase (NEGATIVE) Oz/uL Urine RBC (0-2) /hpf Urine WBC (0-6) /hpf Urine Bacteria (NEG) Coarse Granular Casts (0-2) /hpf 06/22/16 06/22/16 06/22/16 Range/Units 15:57 15:50 15:04 WBC (4.5-11.0) 10^3/ul RBC (3.5-6.1) 10^6/uL Hgb (12.0-16.0) gm/dL Hct (36.0-48.0) % MCV (80.0-105.0) fL MCH (25.0-35.0) pg MCHC (31.0-37.0) g/dl RDW (11.5-14.5) % Plt Count (120.0-450.0) 10^3/uL MPV (7.0-11.0) fl Gran % (50.0-68.0) % Lymph % (Auto) (22.0-35.0) % [place] % (Auto) (1.0-6.0) % Eos % (Auto) (1.5-5.0) % Baso % (Auto) (0.0-3.0) % Gran # (1.4-6.5) Lymph # (1.2-3.4) [place] # (0.1-0.6) Eos # (0.0-0.7) Baso # (0.0-2.0) K/mm3 APTT 55.5 H (23.7-30.8) Seconds pCO2 35 (35-45) mm/Hg pO2 73.0 L (80-100) mm/Hg HCO3 19.8 L (21-28) mmol/L ABG pH 7.36 (7.35-7.45) ABG Total CO2 20.9 L (22-28) mmol.L ABG O2 Saturation 96.5 (95-98) % ABG O2 Content (15-23) ML/dl ABG Base Excess -4.9 L (-2.0-3.0) mmol/L ABG Hemoglobin (11.7-17.4) g/dL ABG Carboxyhemoglobin (0.5-1.5) % POC ABG HHb (Measured) (0-5) % ABG Methemoglobin (0.0-3.0) % ABG O2 Capacity (16-24) mL/dl ABG Potassium 3.9 (3.6-5.2) mmol/L Hgb O2 Saturation (95.0-98.0) % Glucose 208 H (65-105) mg/dl Lactate 1.6 (0.7-2.1) mmol/L Mechanical Rate 24 FiO2 50.0 % Tidal Volume 350 PEEP 15 Sodium 143.0 (132-148) mmol/L Potassium (3.6-5.0) mmol/L Chloride 114.0 H (98-107) mmol/L Carbon Dioxide (21-33) mmol/L Anion Gap (10-20) BUN (7-21) mg/dL Creatinine (0.5-1.4) mg/dL Est GFR ( Amer) Est GFR (Non-Af Amer) POC Glucose (mg/dL) 194 H (65-110) mg/dL Random Glucose (70-110) mg/dL Calcium (8.4-10.5) mg/dL Total Bilirubin (0.2-1.3) mg/dL AST (15-39) U/L ALT (7-56) U/L Alkaline Phosphatase (38-133) U/L Troponin I ng/mL Total Protein (5.8-8.3) g/dL Albumin (3.0-4.8) g/dL Globulin gm/dL Albumin/Globulin Ratio (1.1-1.8) Procalcitonin (0.19-0.49) NG/ML Arterial Blood Potassium 3.9 (3.6-5.2) mmol/L Urine Color (YELLOW) Urine Appearance (CLEAR) Urine pH (4.7-8.0) Ur Specific [place] (1.005-1.035) Urine Protein (<30 mg/dL) mg/dL Urine Glucose (UA) (NEGATIVE) mg/dL Urine Ketones (NEGATIVE) mg/dL Urine Blood (NEGATIVE) Urine Nitrate (NEGATIVE) Urine Bilirubin (NEGATIVE) Urine Urobilinogen (<1 E.U./dL) E.U./dL Ur Leukocyte Esterase (NEGATIVE) Oz/uL Urine RBC (0-2) /hpf Urine WBC (0-6) /hpf Urine Bacteria (NEG) Coarse Granular Casts (0-2) /hpf 06/22/16 06/22/16 06/22/16 Range/Units 13:02 11:31 10:40 WBC (4.5-11.0) 10^3/ul RBC (3.5-6.1) 10^6/uL Hgb (12.0-16.0) gm/dL Hct (36.0-48.0) % MCV (80.0-105.0) fL MCH (25.0-35.0) pg MCHC (31.0-37.0) g/dl RDW (11.5-14.5) % Plt Count (120.0-450.0) 10^3/uL MPV (7.0-11.0) fl Gran % (50.0-68.0) % Lymph % (Auto) (22.0-35.0) % [place] % (Auto) (1.0-6.0) % Eos % (Auto) (1.5-5.0) % Baso % (Auto) (0.0-3.0) % Gran # (1.4-6.5) Lymph # (1.2-3.4) [place] # (0.1-0.6) Eos # (0.0-0.7) Baso # (0.0-2.0) K/mm3 APTT (23.7-30.8) Seconds pCO2 (35-45) mm/Hg pO2 (80-100) mm/Hg HCO3 (21-28) mmol/L ABG pH (7.35-7.45) ABG Total CO2 (22-28) mmol.L ABG O2 Saturation (95-98) % ABG O2 Content (15-23) ML/dl ABG Base Excess (-2.0-3.0) mmol/L ABG Hemoglobin (11.7-17.4) g/dL ABG Carboxyhemoglobin (0.5-1.5) % POC ABG HHb (Measured) (0-5) % ABG Methemoglobin (0.0-3.0) % ABG O2 Capacity (16-24) mL/dl ABG Potassium (3.6-5.2) mmol/L Hgb O2 Saturation (95.0-98.0) % Glucose (65-105) mg/dl Lactate (0.7-2.1) mmol/L Mechanical Rate FiO2 % Tidal Volume PEEP Sodium (132-148) mmol/L Potassium (3.6-5.0) mmol/L Chloride (98-107) mmol/L Carbon Dioxide (21-33) mmol/L Anion Gap (10-20) BUN (7-21) mg/dL Creatinine (0.5-1.4) mg/dL Est GFR ( Amer) Est GFR (Non-Af Amer) POC Glucose (mg/dL) 218 H 216 H (65-110) mg/dL Random Glucose (70-110) mg/dL Calcium (8.4-10.5) mg/dL Total Bilirubin (0.2-1.3) mg/dL AST (15-39) U/L ALT (7-56) U/L Alkaline Phosphatase (38-133) U/L Troponin I ng/mL Total Protein (5.8-8.3) g/dL Albumin (3.0-4.8) g/dL Globulin gm/dL Albumin/Globulin Ratio (1.1-1.8) Procalcitonin (0.19-0.49) NG/ML Arterial Blood Potassium (3.6-5.2) mmol/L Urine Color Yellow (YELLOW) Urine Appearance Sl cloudy (CLEAR) Urine pH 6.0 (4.7-8.0) Ur Specific [place] >= 1.030 (1.005-1.035) Urine Protein 30 H (<30 mg/dL) mg/dL Urine Glucose (UA) Negative (NEGATIVE) mg/dL Urine Ketones Negative (NEGATIVE) mg/dL Urine Blood Moderate H (NEGATIVE) Urine Nitrate Negative (NEGATIVE) Urine Bilirubin Negative (NEGATIVE) Urine Urobilinogen 0.2 (<1 E.U./dL) E.U./dL Ur Leukocyte Esterase Small H (NEGATIVE) Oz/uL Urine RBC 0 - 2 (0-2) /hpf Urine WBC 1 - 3 (0-6) /hpf Urine Bacteria Few (NEG) Coarse Granular Casts Trace H (0-2) /hpf 06/22/16 06/22/16 06/22/16 Range/Units 07:30 06:30 00:07 WBC (4.5-11.0) 10^3/ul RBC (3.5-6.1) 10^6/uL Hgb (12.0-16.0) gm/dL Hct (36.0-48.0) % MCV (80.0-105.0) fL MCH (25.0-35.0) pg MCHC (31.0-37.0) g/dl RDW (11.5-14.5) % Plt Count (120.0-450.0) 10^3/uL MPV (7.0-11.0) fl Gran % (50.0-68.0) % Lymph % (Auto) (22.0-35.0) % [place] % (Auto) (1.0-6.0) % Eos % (Auto) (1.5-5.0) % Baso % (Auto) (0.0-3.0) % Gran # (1.4-6.5) Lymph # (1.2-3.4) [place] # (0.1-0.6) Eos # (0.0-0.7) Baso # (0.0-2.0) K/mm3 APTT (23.7-30.8) Seconds pCO2 (35-45) mm/Hg pO2 (80-100) mm/Hg HCO3 (21-28) mmol/L ABG pH (7.35-7.45) ABG Total CO2 (22-28) mmol.L ABG O2 Saturation (95-98) % ABG O2 Content (15-23) ML/dl ABG Base Excess (-2.0-3.0) mmol/L ABG Hemoglobin (11.7-17.4) g/dL ABG Carboxyhemoglobin (0.5-1.5) % POC ABG HHb (Measured) (0-5) % ABG Methemoglobin (0.0-3.0) % ABG O2 Capacity (16-24) mL/dl ABG Potassium (3.6-5.2) mmol/L Hgb O2 Saturation (95.0-98.0) % Glucose (65-105) mg/dl Lactate (0.7-2.1) mmol/L Mechanical Rate FiO2 % Tidal Volume PEEP Sodium (132-148) mmol/L Potassium (3.6-5.0) mmol/L Chloride (98-107) mmol/L Carbon Dioxide (21-33) mmol/L Anion Gap (10-20) BUN (7-21) mg/dL Creatinine (0.5-1.4) mg/dL Est GFR ( Amer) Est GFR (Non-Af Amer) POC Glucose (mg/dL) 185 H 133 H (65-110) mg/dL Random Glucose (70-110) mg/dL Calcium (8.4-10.5) mg/dL Total Bilirubin (0.2-1.3) mg/dL AST (15-39) U/L ALT (7-56) U/L Alkaline Phosphatase (38-133) U/L Troponin I ng/mL Total Protein (5.8-8.3) g/dL Albumin (3.0-4.8) g/dL Globulin gm/dL Albumin/Globulin Ratio (1.1-1.8) Procalcitonin 59.96 H (0.19-0.49) NG/ML Arterial Blood Potassium (3.6-5.2) mmol/L Urine Color (YELLOW) Urine Appearance (CLEAR) Urine pH (4.7-8.0) Ur Specific [place] (1.005-1.035) Urine Protein (<30 mg/dL) mg/dL Urine Glucose (UA) (NEGATIVE) mg/dL Urine Ketones (NEGATIVE) mg/dL Urine Blood (NEGATIVE) Urine Nitrate (NEGATIVE) Urine Bilirubin (NEGATIVE) Urine Urobilinogen (<1 E.U./dL) E.U./dL Ur Leukocyte Esterase (NEGATIVE) Oz/uL Urine RBC (0-2) /hpf Urine WBC (0-6) /hpf Urine Bacteria (NEG) Coarse Granular Casts (0-2) /hpf 06/21/16 Range/Units 19:14 WBC (4.5-11.0) 10^3/ul RBC (3.5-6.1) 10^6/uL Hgb (12.0-16.0) gm/dL Hct (36.0-48.0) % MCV (80.0-105.0) fL MCH (25.0-35.0) pg MCHC (31.0-37.0) g/dl RDW (11.5-14.5) % Plt Count (120.0-450.0) 10^3/uL MPV (7.0-11.0) fl Gran % (50.0-68.0) % Lymph % (Auto) (22.0-35.0) % [place] % (Auto) (1.0-6.0) % Eos % (Auto) (1.5-5.0) % Baso % (Auto) (0.0-3.0) % Gran # (1.4-6.5) Lymph # (1.2-3.4) [place] # (0.1-0.6) Eos # (0.0-0.7) Baso # (0.0-2.0) K/mm3 APTT (23.7-30.8) Seconds pCO2 (35-45) mm/Hg pO2 (80-100) mm/Hg HCO3 (21-28) mmol/L ABG pH (7.35-7.45) ABG Total CO2 (22-28) mmol.L ABG O2 Saturation (95-98) % ABG O2 Content (15-23) ML/dl ABG Base Excess (-2.0-3.0) mmol/L ABG Hemoglobin (11.7-17.4) g/dL ABG Carboxyhemoglobin (0.5-1.5) % POC ABG HHb (Measured) (0-5) % ABG Methemoglobin (0.0-3.0) % ABG O2 Capacity (16-24) mL/dl ABG Potassium (3.6-5.2) mmol/L Hgb O2 Saturation (95.0-98.0) % Glucose (65-105) mg/dl Lactate (0.7-2.1) mmol/L Mechanical Rate FiO2 % Tidal Volume PEEP Sodium (132-148) mmol/L Potassium (3.6-5.0) mmol/L Chloride (98-107) mmol/L Carbon Dioxide (21-33) mmol/L Anion Gap (10-20) BUN (7-21) mg/dL Creatinine (0.5-1.4) mg/dL Est GFR ( Amer) Est GFR (Non-Af Amer) POC Glucose (mg/dL) 134 H (65-110) mg/dL Random Glucose (70-110) mg/dL Calcium (8.4-10.5) mg/dL Total Bilirubin (0.2-1.3) mg/dL AST (15-39) U/L ALT (7-56) U/L Alkaline Phosphatase (38-133) U/L Troponin I ng/mL Total Protein (5.8-8.3) g/dL Albumin (3.0-4.8) g/dL Globulin gm/dL Albumin/Globulin Ratio (1.1-1.8) Procalcitonin (0.19-0.49) NG/ML Arterial Blood Potassium (3.6-5.2) mmol/L Urine Color (YELLOW) Urine Appearance (CLEAR) Urine pH (4.7-8.0) Ur Specific [place] (1.005-1.035) Urine Protein (<30 mg/dL) mg/dL Urine Glucose (UA) (NEGATIVE) mg/dL Urine Ketones (NEGATIVE) mg/dL Urine Blood (NEGATIVE) Urine Nitrate (NEGATIVE) Urine Bilirubin (NEGATIVE) Urine Urobilinogen (<1 E.U./dL) E.U./dL Ur Leukocyte Esterase (NEGATIVE) Oz/uL Urine RBC (0-2) /hpf Urine WBC (0-6) /hpf Urine Bacteria (NEG) Coarse Granular Casts (0-2) /hpf Laboratory Results - last 24 hr 06/21/16 06/22/16 06/22/16 19:14 00:07 06:30 WBC RBC Hgb Hct MCV MCH MCHC RDW Plt Count MPV Gran % Lymph % (Auto) [place] % (Auto) Eos % (Auto) Baso % (Auto) Gran # Lymph # [place] # Eos # Baso # APTT pCO2 pO2 HCO3 ABG pH ABG Total CO2 ABG O2 Saturation ABG O2 Content ABG Base Excess ABG Hemoglobin ABG Carboxyhemoglobin POC ABG HHb (Measured) ABG Methemoglobin ABG O2 Capacity ABG Potassium Hgb O2 Saturation Sodium Chloride Glucose Lactate Mechanical Rate FiO2 Tidal Volume PEEP Potassium Carbon Dioxide Anion Gap BUN Creatinine Est GFR ( Amer) Est GFR (Non-Af Amer) POC Glucose (mg/dL) 134 H 133 H Random Glucose Calcium Total Bilirubin AST ALT Alkaline Phosphatase Troponin I Total Protein Albumin Globulin Albumin/Globulin Ratio Procalcitonin 59.96 H Arterial Blood Potassium Urine Color Urine Appearance Urine pH Ur Specific [place] Urine Protein Urine Glucose (UA) Urine Ketones Urine Blood Urine Nitrate Urine Bilirubin Urine Urobilinogen Ur Leukocyte Esterase Urine RBC Urine WBC Urine Bacteria Coarse Granular Casts 06/22/16 06/22/16 06/22/16 07:30 10:40 11:31 WBC RBC Hgb Hct MCV MCH MCHC RDW Plt Count MPV Gran % Lymph % (Auto) [place] % (Auto) Eos % (Auto) Baso % (Auto) Gran # Lymph # [place] # Eos # Baso # APTT pCO2 pO2 HCO3 ABG pH ABG Total CO2 ABG O2 Saturation ABG O2 Content ABG Base Excess ABG Hemoglobin ABG Carboxyhemoglobin POC ABG HHb (Measured) ABG Methemoglobin ABG O2 Capacity ABG Potassium Hgb O2 Saturation Sodium Chloride Glucose Lactate Mechanical Rate FiO2 Tidal Volume PEEP Potassium Carbon Dioxide Anion Gap BUN Creatinine Est GFR ( Amer) Est GFR (Non-Af Amer) POC Glucose (mg/dL) 185 H 216 H Random Glucose Calcium Total Bilirubin AST ALT Alkaline Phosphatase Troponin I Total Protein Albumin Globulin Albumin/Globulin Ratio Procalcitonin Arterial Blood Potassium Urine Color Yellow Urine Appearance Sl cloudy Urine pH 6.0 Ur Specific [place] >= 1.030 Urine Protein 30 H Urine Glucose (UA) Negative Urine Ketones Negative Urine Blood Moderate H Urine Nitrate Negative Urine Bilirubin Negative Urine Urobilinogen 0.2 Ur Leukocyte Esterase Small H Urine RBC 0 - 2 Urine WBC 1 - 3 Urine Bacteria Few Coarse Granular Casts Trace H 06/22/16 06/22/16 06/22/16 13:02 15:04 15:50 WBC RBC Hgb Hct MCV MCH MCHC RDW Plt Count MPV Gran % Lymph % (Auto) [place] % (Auto) Eos % (Auto) Baso % (Auto) Gran # Lymph # [place] # Eos # Baso # APTT 55.5 H pCO2 pO2 HCO3 ABG pH ABG Total CO2 ABG O2 Saturation ABG O2 Content ABG Base Excess ABG Hemoglobin ABG Carboxyhemoglobin POC ABG HHb (Measured) ABG Methemoglobin ABG O2 Capacity ABG Potassium Hgb O2 Saturation Sodium Chloride Glucose Lactate Mechanical Rate FiO2 Tidal Volume PEEP Potassium Carbon Dioxide Anion Gap BUN Creatinine Est GFR ( Amer) Est GFR (Non-Af Amer) POC Glucose (mg/dL) 218 H 194 H Random Glucose Calcium Total Bilirubin AST ALT Alkaline Phosphatase Troponin I Total Protein Albumin Globulin Albumin/Globulin Ratio Procalcitonin Arterial Blood Potassium Urine Color Urine Appearance Urine pH Ur Specific [place] Urine Protein Urine Glucose (UA) Urine Ketones Urine Blood Urine Nitrate Urine Bilirubin Urine Urobilinogen Ur Leukocyte Esterase Urine RBC Urine WBC Urine Bacteria Coarse Granular Casts 06/22/16 06/22/16 06/22/16 15:57 16:55 19:10 WBC RBC Hgb Hct MCV MCH MCHC RDW Plt Count MPV Gran % Lymph % (Auto) [place] % (Auto) Eos % (Auto) Baso % (Auto) Gran # Lymph # [place] # Eos # Baso # APTT pCO2 35 pO2 73.0 L HCO3 19.8 L ABG pH 7.36 ABG Total CO2 20.9 L ABG O2 Saturation 96.5 ABG O2 Content ABG Base Excess -4.9 L ABG Hemoglobin ABG Carboxyhemoglobin POC ABG HHb (Measured) ABG Methemoglobin ABG O2 Capacity ABG Potassium 3.9 Hgb O2 Saturation Sodium 143.0 Chloride 114.0 H Glucose 208 H Lactate 1.6 Mechanical Rate 24 FiO2 50.0 Tidal Volume 350 PEEP 15 Potassium Carbon Dioxide Anion Gap BUN Creatinine Est GFR ( Amer) Est GFR (Non-Af Amer) POC Glucose (mg/dL) 179 H 245 H Random Glucose Calcium Total Bilirubin AST ALT Alkaline Phosphatase Troponin I Total Protein Albumin Globulin Albumin/Globulin Ratio Procalcitonin Arterial Blood Potassium 3.9 Urine Color Urine Appearance Urine pH Ur Specific [place] Urine Protein Urine Glucose (UA) Urine Ketones Urine Blood Urine Nitrate Urine Bilirubin Urine Urobilinogen Ur Leukocyte Esterase Urine RBC Urine WBC Urine Bacteria Coarse Granular Casts 06/22/16 06/22/16 06/23/16 21:01 23:00 01:48 WBC RBC Hgb Hct MCV MCH MCHC RDW Plt Count MPV Gran % Lymph % (Auto) [place] % (Auto) Eos % (Auto) Baso % (Auto) Gran # Lymph # [place] # Eos # Baso # APTT 57.8 H pCO2 pO2 HCO3 ABG pH ABG Total CO2 ABG O2 Saturation ABG O2 Content ABG Base Excess ABG Hemoglobin ABG Carboxyhemoglobin POC ABG HHb (Measured) ABG Methemoglobin ABG O2 Capacity ABG Potassium Hgb O2 Saturation Sodium Chloride Glucose Lactate Mechanical Rate FiO2 Tidal Volume PEEP Potassium Carbon Dioxide Anion Gap BUN Creatinine Est GFR ( Amer) Est GFR (Non-Af Amer) POC Glucose (mg/dL) 257 H 202 H 257 H Random Glucose Calcium Total Bilirubin AST ALT Alkaline Phosphatase Troponin I Total Protein Albumin Globulin Albumin/Globulin Ratio Procalcitonin Arterial Blood Potassium Urine Color Urine Appearance Urine pH Ur Specific [place] Urine Protein Urine Glucose (UA) Urine Ketones Urine Blood Urine Nitrate Urine Bilirubin Urine Urobilinogen Ur Leukocyte Esterase Urine RBC Urine WBC Urine Bacteria Coarse Granular Casts 06/23/16 06/23/16 06/23/16 03:50 05:20 06:02 WBC RBC Hgb Hct MCV MCH MCHC RDW Plt Count MPV Gran % Lymph % (Auto) [place] % (Auto) Eos % (Auto) Baso % (Auto) Gran # Lymph # [place] # Eos # Baso # APTT pCO2 32 L pO2 87.0 HCO3 20.8 L ABG pH 7.42 ABG Total CO2 21.8 L ABG O2 Saturation 98.4 H ABG O2 Content 12.1 L ABG Base Excess -3.1 L ABG Hemoglobin 8.9 L ABG Carboxyhemoglobin 2.0 H POC ABG HHb (Measured) 1.6 ABG Methemoglobin 0.9 ABG O2 Capacity 12.3 L ABG Potassium Hgb O2 Saturation 95.5 Sodium Chloride Glucose Lactate Mechanical Rate FiO2 50.0 Tidal Volume PEEP Potassium Carbon Dioxide Anion Gap BUN Creatinine Est GFR ( Amer) Est GFR (Non-Af Amer) POC Glucose (mg/dL) 248 H 281 H Random Glucose Calcium Total Bilirubin AST ALT Alkaline Phosphatase Troponin I Total Protein Albumin Globulin Albumin/Globulin Ratio Procalcitonin Arterial Blood Potassium Urine Color Urine Appearance Urine pH Ur Specific [place] Urine Protein Urine Glucose (UA) Urine Ketones Urine Blood Urine Nitrate Urine Bilirubin Urine Urobilinogen Ur Leukocyte Esterase Urine RBC Urine WBC Urine Bacteria Coarse Granular Casts 06/23/16 06:05 WBC 12.9 H RBC 3.16 L Hgb 9.4 L Hct 28.1 L MCV 88.9 MCH 29.7 MCHC 33.5 RDW 14.5 Plt Count 183 MPV 11.2 H Gran % 88.0 H Lymph % (Auto) 6.8 L [place] % (Auto) 5.1 Eos % (Auto) 0.0 L Baso % (Auto) 0.1 Gran # 11.34 H Lymph # 0.9 L [place] # 0.7 H Eos # 0.0 Baso # 0.01 APTT pCO2 pO2 HCO3 ABG pH ABG Total CO2 ABG O2 Saturation ABG O2 Content ABG Base Excess ABG Hemoglobin ABG Carboxyhemoglobin POC ABG HHb (Measured) ABG Methemoglobin ABG O2 Capacity ABG Potassium Hgb O2 Saturation Sodium 144 Chloride 110 H Glucose Lactate Mechanical Rate FiO2 Tidal Volume PEEP Potassium 3.5 L Carbon Dioxide 23 Anion Gap 15 BUN 42 H Creatinine 1.9 H Est GFR ( Amer) 30 Est GFR (Non-Af Amer) 25 POC Glucose (mg/dL) Random Glucose 260 H Calcium 6.9 L* Total Bilirubin 0.4 AST 53 H ALT 45 Alkaline Phosphatase 99 Troponin I 25.50 H* Total Protein 5.7 L Albumin 2.6 L Globulin 3.2 Albumin/Globulin Ratio 0.8 L Procalcitonin Arterial Blood Potassium Urine Color Urine Appearance Urine pH Ur Specific [place] Urine Protein Urine Glucose (UA) Urine Ketones Urine Blood Urine Nitrate Urine Bilirubin Urine Urobilinogen Ur Leukocyte Esterase Urine RBC Urine WBC Urine Bacteria Coarse Granular Casts Fingerstick Blood Sugar Results: 284 Review of Systems - Review of Systems Systems not reviewed;Unavailable: Intubated Critical Care Progress Note - Ventilator Checklist PUD Prophalyxis: Yes DVT Prophylaxis: Yes - Vent Settings MODE:: PRVC TIDAL VOLUME:: 350 RESP RATE:: 24 FIO2:: 50 PEEP:: 10 - Prophylaxis GI Prophylaxis GI: PPI - Nutrition Nutrition: Nutrition Category Date Time Status NPO Diet [DIET] Diets 06/21/16 Lunch Ordered Assessment/Plan - Assessment and Plan (Free Text) Assessment: 85 yo F w h/o NIDDM2, HTN admitted to ICU with anoxic encephalopathy s/p cardiac arrest with cardiogenic shock, VDRF pending terminal extubation. Plan: Neuro: Anoxic encephalopathy. Maintain normothermia, euvolemia, euglycemia Continue Keppra for seizure activity CV: On inotropic support with dobutamine drip. Maintain MAP >65 Continue inotropic support pending terminal extubation s/p Inferolateral [place]. Continue Heparin drip, plavix, ASA, Lipitor as per cardio Pulm: Currently on 350/24/50%/10, Titrate to maintain spo2>90, pao2>60 In mild resp distress with accessory muscle use, overbreathing the vent at 30 -36bpm, Precedex PRN Failed pressure support yesterday due to respiratory distress and acute pulmonary edema. Will continue to diurese and monitor pulm status Preventive lung ventilation strategy, HOB>35 degrees Daily ABG, CXR while intubated GI: GI ppx, TF Renal: GRACIE worsening still. Cr 1.9 today Maintain euvolemia Endo: BS consistently in 200s. Will increase Lispro SSI to High dose Maintain euglycemia ID: UTI and aspiration PNA. Leukocytosis relatively stable today at 12.9 today 06/19 Urine culture significant for Klebsiella pneumonia and Aerococcus viridans Continue Doxy and Aztreonam as per ID Heme: No acute issues. DVT/GI ppx: Heparin gtt, Protonix, Tube feeds Dispo: Terminal extubation later today, awaiting family arrival - planned for 8pm tonight. Will DC all labwork and other meds once hospice and extubation is ready - Date & Time Date: 06/23/16 Time: 11:51 <Damien Soliman - Last Filed: 06/23/16 16:10> CCU Objective - Vital Signs / Intake & Output Intake and Output (Last 8hrs): Intake & Output 06/23/16 06/23/16 06/23/16 06:59 14:59 22:59 Intake Total 1030 Output Total 850 Balance 180 Weight 187 lb 12.8 oz Intake: IV 220 Left Antecubital 0 Right Antecubital 0 Heparin 120 dobutamine 100 Oral 0 Tube Feeding 410 TPN/PPN 0 Blood Product 0 Lipid 0 Albumin 0 Other 400 Output: Urine 850 Urethral (Menezes) 850 Stool 0 Urine/Stool Mix 0 Emesis 0 Oral Regurgitation 0 Other 0 Other: Voiding Method Indwelling Catheter # Voids Urethral (Menezes) 0 # Bowel Movements 0 - Medications Active Medications: Active Medications Generic Name Dose Route Start Last Admin Trade Name Freq PRN Reason Stop Dose Admin Acetaminophen 650 mg 06/21/16 18:24 06/22/16 06:00 Tylenol 650 Mg Supp RC 650 mg Q4H PRN Administration Fever >100.4 F Aspirin 81 mg 06/21/16 10:00 06/23/16 10:06 Ecotrin PO 81 mg DAILY MICHAEL Administration Atorvastatin Calcium 20 mg 06/19/16 17:00 06/22/16 17:17 Lipitor PO 20 mg DIN MICHAEL Administration Clopidogrel Bisulfate 75 mg 06/20/16 10:00 06/23/16 10:06 Plavix PO 75 mg DAILY MICHAEL Administration Norepinephrine Bitartrate 4 mg 254 mls @ 15.24 mls/hr 06/19/16 14:15 06/20/16 07:00 / Dextrose IV 0 mcg/min .[id number] PRN Titration TITRATE PER MD ORDER Protocol 4 MCG/MIN Dexmedetomidine HCl 100 mls @ 4.15 mls/hr 06/19/16 15:08 06/23/16 13:38 Precedex 4 Mcg/Ml (100 Ml) IV 6.226 mls/hr .Q24H PRN Administration Agitation Protocol 0.2 MCG/KG/HR Heparin Sodium/Sodium Chloride 250 mls @ 9.961 mls/hr 06/19/16 15:45 06/23/16 05:01 Heparin 39878 Units/250ml 1/2 Normal Saline IV 10 mls/hr .Q24H MICHAEL Administration Protocol 12 UNITS/KG/HR Levetiracetam 100 mls @ 400 mls/hr 06/19/16 22:00 06/23/16 10:07 Keppra 500mg Ivpb IV 400 mls/hr Q12 MICHAEL Administration Doxycycline Hyclate 100 mg/ 100 mls @ 100 mls/hr 06/20/16 10:30 06/23/16 10:08 Sodium Chloride IVPB 100 mls/hr Q12 MICHAEL Administration Protocol Aztreonam 100 mls @ 100 mls/hr 06/20/16 14:45 06/23/16 13:31 Azactam 1 Gm IVPB 06/27/16 14:46 100 mls/hr Q8 MICHAEL Administration Protocol Acetaminophen 100 mls @ 400 mls/hr 06/22/16 15:37 06/22/16 20:29 Ofirmev IVPB 06/24/16 15:38 400 mls/hr Q6H PRN Administration Fever >100.4 F Dobutamine HCl/Dextrose 250 mls @ 12.664 mls/hr 06/23/16 04:04 06/23/16 10:40 Dobutamine/Dextrose 5% 500mg/250ml IV 12.778 mls/hr .[id number] PRN Administration TITRATE PER PROTOCOL Protocol 5 MCG/KG/MIN Insulin Human Lispro 0 units 06/23/16 14:00 06/23/16 14:26 Humalog High SC 7 units Q2 MICHAEL Administration Protocol Metoprolol Tartrate 5 mg 06/22/16 19:23 06/23/16 02:20 Lopressor IVP 5 mg Q6 PRN Administration HR > 100 Pantoprazole Sodium 40 mg 06/20/16 10:00 06/23/16 10:06 Protonix Inj IVP 40 mg DAILY MICHAEL Administration - Patient Studies Lab Studies: Microbiology Studies 06/22/16 10:40 Urine Culture - Final Urine,Menezes No Growth (<1,000 CFU/ML) 06/22/16 08:30 Blood Culture - Preliminary Blood-Venous NO GROWTH AFTER 24 HOURS 06/22/16 08:00 Blood Culture - Preliminary Blood-Venous NO GROWTH AFTER 24 HOURS 06/19/16 16:30 Blood Culture - Preliminary Blood NO GROWTH AFTER 3 DAYS Lab Studies 06/23/16 06/23/16 06/23/16 Range/Units 15:42 13:32 12:53 WBC (4.5-11.0) 10^3/ul RBC (3.5-6.1) 10^6/uL Hgb (12.0-16.0) gm/dL Hct (36.0-48.0) % MCV (80.0-105.0) fL MCH (25.0-35.0) pg MCHC (31.0-37.0) g/dl RDW (11.5-14.5) % Plt Count (120.0-450.0) 10^3/uL MPV (7.0-11.0) fl Gran % (50.0-68.0) % Lymph % (Auto) (22.0-35.0) % [place] % (Auto) (1.0-6.0) % Eos % (Auto) (1.5-5.0) % Baso % (Auto) (0.0-3.0) % Gran # (1.4-6.5) Lymph # (1.2-3.4) [place] # (0.1-0.6) Eos # (0.0-0.7) Baso # (0.0-2.0) K/mm3 Retic Count (0.5-1.5) % APTT (23.7-30.8) Seconds pCO2 (35-45) mm/Hg pO2 (80-100) mm/Hg HCO3 (21-28) mmol/L ABG pH (7.35-7.45) ABG Total CO2 (22-28) mmol.L ABG O2 Saturation (95-98) % ABG O2 Content (15-23) ML/dl ABG Base Excess (-2.0-3.0) mmol/L ABG Hemoglobin (11.7-17.4) g/dL ABG Carboxyhemoglobin (0.5-1.5) % POC ABG HHb (Measured) (0-5) % ABG Methemoglobin (0.0-3.0) % ABG O2 Capacity (16-24) mL/dl ABG Potassium (3.6-5.2) mmol/L Hgb O2 Saturation (95.0-98.0) % Glucose (65-105) mg/dl Lactate (0.7-2.1) mmol/L Mechanical Rate FiO2 % Tidal Volume PEEP Sodium (132-148) mmol/L Potassium (3.6-5.0) mmol/L Chloride (98-107) mmol/L Carbon Dioxide (21-33) mmol/L Anion Gap (10-20) BUN (7-21) mg/dL Creatinine (0.5-1.4) mg/dL Est GFR ( Amer) Est GFR (Non-Af Amer) POC Glucose (mg/dL) 287 H 263 H (65-110) mg/dL Random Glucose (70-110) mg/dL Calcium (8.4-10.5) mg/dL Iron 10 L (45-180) ug/dL TIBC 185 L (265-497) ug/dL % Saturation 6 L (20-55) % Total Bilirubin (0.2-1.3) mg/dL AST (15-39) U/L ALT (7-56) U/L Alkaline Phosphatase (38-133) U/L Troponin I ng/mL Total Protein (5.8-8.3) g/dL Albumin (3.0-4.8) g/dL Globulin gm/dL Albumin/Globulin Ratio (1.1-1.8) Arterial Blood Potassium (3.6-5.2) mmol/L 06/23/16 06/23/16 06/23/16 Range/Units 10:07 08:49 07:00 WBC (4.5-11.0) 10^3/ul RBC (3.5-6.1) 10^6/uL Hgb (12.0-16.0) gm/dL Hct (36.0-48.0) % MCV (80.0-105.0) fL MCH (25.0-35.0) pg MCHC (31.0-37.0) g/dl RDW (11.5-14.5) % Plt Count (120.0-450.0) 10^3/uL MPV (7.0-11.0) fl Gran % (50.0-68.0) % Lymph % (Auto) (22.0-35.0) % [place] % (Auto) (1.0-6.0) % Eos % (Auto) (1.5-5.0) % Baso % (Auto) (0.0-3.0) % Gran # (1.4-6.5) Lymph # (1.2-3.4) [place] # (0.1-0.6) Eos # (0.0-0.7) Baso # (0.0-2.0) K/mm3 Retic Count 1.84 H (0.5-1.5) % APTT (23.7-30.8) Seconds pCO2 (35-45) mm/Hg pO2 (80-100) mm/Hg HCO3 (21-28) mmol/L ABG pH (7.35-7.45) ABG Total CO2 (22-28) mmol.L ABG O2 Saturation (95-98) % ABG O2 Content (15-23) ML/dl ABG Base Excess (-2.0-3.0) mmol/L ABG Hemoglobin (11.7-17.4) g/dL ABG Carboxyhemoglobin (0.5-1.5) % POC ABG HHb (Measured) (0-5) % ABG Methemoglobin (0.0-3.0) % ABG O2 Capacity (16-24) mL/dl ABG Potassium (3.6-5.2) mmol/L Hgb O2 Saturation (95.0-98.0) % Glucose (65-105) mg/dl Lactate (0.7-2.1) mmol/L Mechanical Rate FiO2 % Tidal Volume PEEP Sodium (132-148) mmol/L Potassium (3.6-5.0) mmol/L Chloride (98-107) mmol/L Carbon Dioxide (21-33) mmol/L Anion Gap (10-20) BUN (7-21) mg/dL Creatinine (0.5-1.4) mg/dL Est GFR ( Amer) Est GFR (Non-Af Amer) POC Glucose (mg/dL) 274 H 284 H (65-110) mg/dL Random Glucose (70-110) mg/dL Calcium (8.4-10.5) mg/dL Iron (45-180) ug/dL TIBC (265-497) ug/dL % Saturation (20-55) % Total Bilirubin (0.2-1.3) mg/dL AST (15-39) U/L ALT (7-56) U/L Alkaline Phosphatase (38-133) U/L Troponin I ng/mL Total Protein (5.8-8.3) g/dL Albumin (3.0-4.8) g/dL Globulin gm/dL Albumin/Globulin Ratio (1.1-1.8) Arterial Blood Potassium (3.6-5.2) mmol/L 03/23/17 03/23/17 03/23/17 Range/Units 06:05 06:02 05:20 WBC 12.9 H (4.5-11.0) 10^3/ul RBC 3.16 L (3.5-6.1) 10^6/uL Hgb 9.4 L (12.0-16.0) gm/dL Hct 28.1 L (36.0-48.0) % MCV 88.9 (80.0-105.0) fL MCH 29.7 (25.0-35.0) pg MCHC 33.5 (31.0-37.0) g/dl RDW 14.5 (11.5-14.5) % Plt Count 183 (120.0-450.0) 10^3/uL MPV 11.2 H (7.0-11.0) fl Gran % 88.0 H (50.0-68.0) % Lymph % (Auto) 6.8 L (22.0-35.0) % [place] % (Auto) 5.1 (1.0-6.0) % Eos % (Auto) 0.0 L (1.5-5.0) % Baso % (Auto) 0.1 (0.0-3.0) % Gran # 11.34 H (1.4-6.5) Lymph # 0.9 L (1.2-3.4) [place] # 0.7 H (0.1-0.6) Eos # 0.0 (0.0-0.7) Baso # 0.01 (0.0-2.0) K/mm3 Retic Count (0.5-1.5) % APTT (23.7-30.8) Seconds pCO2 32 L (35-45) mm/Hg pO2 87.0 (80-100) mm/Hg HCO3 20.8 L (21-28) mmol/L ABG pH 7.42 (7.35-7.45) ABG Total CO2 21.8 L (22-28) mmol.L ABG O2 Saturation 98.4 H (95-98) % ABG O2 Content 12.1 L (15-23) ML/dl ABG Base Excess -3.1 L (-2.0-3.0) mmol/L ABG Hemoglobin 8.9 L (11.7-17.4) g/dL ABG Carboxyhemoglobin 2.0 H (0.5-1.5) % POC ABG HHb (Measured) 1.6 (0-5) % ABG Methemoglobin 0.9 (0.0-3.0) % ABG O2 Capacity 12.3 L (16-24) mL/dl ABG Potassium (3.6-5.2) mmol/L Hgb O2 Saturation 95.5 (95.0-98.0) % Glucose (65-105) mg/dl Lactate (0.7-2.1) mmol/L Mechanical Rate FiO2 50.0 % Tidal Volume PEEP Sodium 144 (132-148) mmol/L Potassium 3.5 L (3.6-5.0) mmol/L Chloride 110 H (98-107) mmol/L Carbon Dioxide 23 (21-33) mmol/L Anion Gap 15 (10-20) BUN 42 H (7-21) mg/dL Creatinine 1.9 H (0.5-1.4) mg/dL Est GFR ( Amer) 30 Est GFR (Non-Af Amer) 25 POC Glucose (mg/dL) 281 H (65-110) mg/dL Random Glucose 260 H (70-110) mg/dL Calcium 6.9 L* (8.4-10.5) mg/dL Iron (45-180) ug/dL TIBC (265-497) ug/dL % Saturation (20-55) % Total Bilirubin 0.4 (0.2-1.3) mg/dL AST 53 H (15-39) U/L ALT 45 (7-56) U/L Alkaline Phosphatase 99 (38-133) U/L Troponin I 25.50 H* ng/mL Total Protein 5.7 L (5.8-8.3) g/dL Albumin 2.6 L (3.0-4.8) g/dL Globulin 3.2 gm/dL Albumin/Globulin Ratio 0.8 L (1.1-1.8) Arterial Blood Potassium (3.6-5.2) mmol/L 06/23/16 06/23/16 06/22/16 Range/Units 03:50 01:48 23:00 WBC (4.5-11.0) 10^3/ul RBC (3.5-6.1) 10^6/uL Hgb (12.0-16.0) gm/dL Hct (36.0-48.0) % MCV (80.0-105.0) fL MCH (25.0-35.0) pg MCHC (31.0-37.0) g/dl RDW (11.5-14.5) % Plt Count (120.0-450.0) 10^3/uL MPV (7.0-11.0) fl Gran % (50.0-68.0) % Lymph % (Auto) (22.0-35.0) % [place] % (Auto) (1.0-6.0) % Eos % (Auto) (1.5-5.0) % Baso % (Auto) (0.0-3.0) % Gran # (1.4-6.5) Lymph # (1.2-3.4) [place] # (0.1-0.6) Eos # (0.0-0.7) Baso # (0.0-2.0) K/mm3 Retic Count (0.5-1.5) % APTT 57.8 H (23.7-30.8) Seconds pCO2 (35-45) mm/Hg pO2 (80-100) mm/Hg HCO3 (21-28) mmol/L ABG pH (7.35-7.45) ABG Total CO2 (22-28) mmol.L ABG O2 Saturation (95-98) % ABG O2 Content (15-23) ML/dl ABG Base Excess (-2.0-3.0) mmol/L ABG Hemoglobin (11.7-17.4) g/dL ABG Carboxyhemoglobin (0.5-1.5) % POC ABG HHb (Measured) (0-5) % ABG Methemoglobin (0.0-3.0) % ABG O2 Capacity (16-24) mL/dl ABG Potassium (3.6-5.2) mmol/L Hgb O2 Saturation (95.0-98.0) % Glucose (65-105) mg/dl Lactate (0.7-2.1) mmol/L Mechanical Rate FiO2 % Tidal Volume PEEP Sodium (132-148) mmol/L Potassium (3.6-5.0) mmol/L Chloride (98-107) mmol/L Carbon Dioxide (21-33) mmol/L Anion Gap (10-20) BUN (7-21) mg/dL Creatinine (0.5-1.4) mg/dL Est GFR ( Amer) Est GFR (Non-Af Amer) POC Glucose (mg/dL) 248 H 257 H 202 H (65-110) mg/dL Random Glucose (70-110) mg/dL Calcium (8.4-10.5) mg/dL Iron (45-180) ug/dL TIBC (265-497) ug/dL % Saturation (20-55) % Total Bilirubin (0.2-1.3) mg/dL AST (15-39) U/L ALT (7-56) U/L Alkaline Phosphatase (38-133) U/L Troponin I ng/mL Total Protein (5.8-8.3) g/dL Albumin (3.0-4.8) g/dL Globulin gm/dL Albumin/Globulin Ratio (1.1-1.8) Arterial Blood Potassium (3.6-5.2) mmol/L 06/22/16 06/22/16 06/22/16 Range/Units 21:01 19:10 16:55 WBC (4.5-11.0) 10^3/ul RBC (3.5-6.1) 10^6/uL Hgb (12.0-16.0) gm/dL Hct (36.0-48.0) % MCV (80.0-105.0) fL MCH (25.0-35.0) pg MCHC (31.0-37.0) g/dl RDW (11.5-14.5) % Plt Count (120.0-450.0) 10^3/uL MPV (7.0-11.0) fl Gran % (50.0-68.0) % Lymph % (Auto) (22.0-35.0) % [place] % (Auto) (1.0-6.0) % Eos % (Auto) (1.5-5.0) % Baso % (Auto) (0.0-3.0) % Gran # (1.4-6.5) Lymph # (1.2-3.4) [place] # (0.1-0.6) Eos # (0.0-0.7) Baso # (0.0-2.0) K/mm3 Retic Count (0.5-1.5) % APTT (23.7-30.8) Seconds pCO2 (35-45) mm/Hg pO2 (80-100) mm/Hg HCO3 (21-28) mmol/L ABG pH (7.35-7.45) ABG Total CO2 (22-28) mmol.L ABG O2 Saturation (95-98) % ABG O2 Content (15-23) ML/dl ABG Base Excess (-2.0-3.0) mmol/L ABG Hemoglobin (11.7-17.4) g/dL ABG Carboxyhemoglobin (0.5-1.5) % POC ABG HHb (Measured) (0-5) % ABG Methemoglobin (0.0-3.0) % ABG O2 Capacity (16-24) mL/dl ABG Potassium (3.6-5.2) mmol/L Hgb O2 Saturation (95.0-98.0) % Glucose (65-105) mg/dl Lactate (0.7-2.1) mmol/L Mechanical Rate FiO2 % Tidal Volume PEEP Sodium (132-148) mmol/L Potassium (3.6-5.0) mmol/L Chloride (98-107) mmol/L Carbon Dioxide (21-33) mmol/L Anion Gap (10-20) BUN (7-21) mg/dL Creatinine (0.5-1.4) mg/dL Est GFR ( Amer) Est GFR (Non-Af Amer) POC Glucose (mg/dL) 257 H 245 H 179 H (65-110) mg/dL Random Glucose (70-110) mg/dL Calcium (8.4-10.5) mg/dL Iron (45-180) ug/dL TIBC (265-497) ug/dL % Saturation (20-55) % Total Bilirubin (0.2-1.3) mg/dL AST (15-39) U/L ALT (7-56) U/L Alkaline Phosphatase (38-133) U/L Troponin I ng/mL Total Protein (5.8-8.3) g/dL Albumin (3.0-4.8) g/dL Globulin gm/dL Albumin/Globulin Ratio (1.1-1.8) Arterial Blood Potassium (3.6-5.2) mmol/L 06/22/16 06/21/16 Range/Units 15:57 19:14 WBC (4.5-11.0) 10^3/ul RBC (3.5-6.1) 10^6/uL Hgb (12.0-16.0) gm/dL Hct (36.0-48.0) % MCV (80.0-105.0) fL MCH (25.0-35.0) pg MCHC (31.0-37.0) g/dl RDW (11.5-14.5) % Plt Count (120.0-450.0) 10^3/uL MPV (7.0-11.0) fl Gran % (50.0-68.0) % Lymph % (Auto) (22.0-35.0) % [place] % (Auto) (1.0-6.0) % Eos % (Auto) (1.5-5.0) % Baso % (Auto) (0.0-3.0) % Gran # (1.4-6.5) Lymph # (1.2-3.4) [place] # (0.1-0.6) Eos # (0.0-0.7) Baso # (0.0-2.0) K/mm3 Retic Count (0.5-1.5) % APTT (23.7-30.8) Seconds pCO2 35 (35-45) mm/Hg pO2 73.0 L (80-100) mm/Hg HCO3 19.8 L (21-28) mmol/L ABG pH 7.36 (7.35-7.45) ABG Total CO2 20.9 L (22-28) mmol.L ABG O2 Saturation 96.5 (95-98) % ABG O2 Content (15-23) ML/dl ABG Base Excess -4.9 L (-2.0-3.0) mmol/L ABG Hemoglobin (11.7-17.4) g/dL ABG Carboxyhemoglobin (0.5-1.5) % POC ABG HHb (Measured) (0-5) % ABG Methemoglobin (0.0-3.0) % ABG O2 Capacity (16-24) mL/dl ABG Potassium 3.9 (3.6-5.2) mmol/L Hgb O2 Saturation (95.0-98.0) % Glucose 208 H (65-105) mg/dl Lactate 1.6 (0.7-2.1) mmol/L Mechanical Rate 24 FiO2 50.0 % Tidal Volume 350 PEEP 15 Sodium 143.0 (132-148) mmol/L Potassium (3.6-5.0) mmol/L Chloride 114.0 H (98-107) mmol/L Carbon Dioxide (21-33) mmol/L Anion Gap (10-20) BUN (7-21) mg/dL Creatinine (0.5-1.4) mg/dL Est GFR ( Amer) Est GFR (Non-Af Amer) POC Glucose (mg/dL) 134 H (65-110) mg/dL Random Glucose (70-110) mg/dL Calcium (8.4-10.5) mg/dL Iron (45-180) ug/dL TIBC (265-497) ug/dL % Saturation (20-55) % Total Bilirubin (0.2-1.3) mg/dL AST (15-39) U/L ALT (7-56) U/L Alkaline Phosphatase (38-133) U/L Troponin I ng/mL Total Protein (5.8-8.3) g/dL Albumin (3.0-4.8) g/dL Globulin gm/dL Albumin/Globulin Ratio (1.1-1.8) Arterial Blood Potassium 3.9 (3.6-5.2) mmol/L Laboratory Results - last 24 hr 06/21/16 06/22/16 06/22/16 19:14 15:57 16:55 WBC RBC Hgb Hct MCV MCH MCHC RDW Plt Count MPV Gran % Lymph % (Auto) [place] % (Auto) Eos % (Auto) Baso % (Auto) Gran # Lymph # [place] # Eos # Baso # Retic Count APTT pCO2 35 pO2 73.0 L HCO3 19.8 L ABG pH 7.36 ABG Total CO2 20.9 L ABG O2 Saturation 96.5 ABG O2 Content ABG Base Excess -4.9 L ABG Hemoglobin ABG Carboxyhemoglobin POC ABG HHb (Measured) ABG Methemoglobin ABG O2 Capacity ABG Potassium 3.9 Hgb O2 Saturation Sodium 143.0 Chloride 114.0 H Glucose 208 H Lactate 1.6 Mechanical Rate 24 FiO2 50.0 Tidal Volume 350 PEEP 15 Potassium Carbon Dioxide Anion Gap BUN Creatinine Est GFR ( Amer) Est GFR (Non-Af Amer) POC Glucose (mg/dL) 134 H 179 H Random Glucose Calcium Iron TIBC % Saturation Total Bilirubin AST ALT Alkaline Phosphatase Troponin I Total Protein Albumin Globulin Albumin/Globulin Ratio Arterial Blood Potassium 3.9 06/22/16 06/22/16 06/22/16 19:10 21:01 23:00 WBC RBC Hgb Hct MCV MCH MCHC RDW Plt Count MPV Gran % Lymph % (Auto) [place] % (Auto) Eos % (Auto) Baso % (Auto) Gran # Lymph # [place] # Eos # Baso # Retic Count APTT 57.8 H pCO2 pO2 HCO3 ABG pH ABG Total CO2 ABG O2 Saturation ABG O2 Content ABG Base Excess ABG Hemoglobin ABG Carboxyhemoglobin POC ABG HHb (Measured) ABG Methemoglobin ABG O2 Capacity ABG Potassium Hgb O2 Saturation Sodium Chloride Glucose Lactate Mechanical Rate FiO2 Tidal Volume PEEP Potassium Carbon Dioxide Anion Gap BUN Creatinine Est GFR ( Amer) Est GFR (Non-Af Amer) POC Glucose (mg/dL) 245 H 257 H 202 H Random Glucose Calcium Iron TIBC % Saturation Total Bilirubin AST ALT Alkaline Phosphatase Troponin I Total Protein Albumin Globulin Albumin/Globulin Ratio Arterial Blood Potassium 06/23/16 06/23/16 06/23/16 01:48 03:50 05:20 WBC RBC Hgb Hct MCV MCH MCHC RDW Plt Count MPV Gran % Lymph % (Auto) [place] % (Auto) Eos % (Auto) Baso % (Auto) Gran # Lymph # [place] # Eos # Baso # Retic Count APTT pCO2 32 L pO2 87.0 HCO3 20.8 L ABG pH 7.42 ABG Total CO2 21.8 L ABG O2 Saturation 98.4 H ABG O2 Content 12.1 L ABG Base Excess -3.1 L ABG Hemoglobin 8.9 L ABG Carboxyhemoglobin 2.0 H POC ABG HHb (Measured) 1.6 ABG Methemoglobin 0.9 ABG O2 Capacity 12.3 L ABG Potassium Hgb O2 Saturation 95.5 Sodium Chloride Glucose Lactate Mechanical Rate FiO2 50.0 Tidal Volume PEEP Potassium Carbon Dioxide Anion Gap BUN Creatinine Est GFR ( Amer) Est GFR (Non-Af Amer) POC Glucose (mg/dL) 257 H 248 H Random Glucose Calcium Iron TIBC % Saturation Total Bilirubin AST ALT Alkaline Phosphatase Troponin I Total Protein Albumin Globulin Albumin/Globulin Ratio Arterial Blood Potassium 06/23/16 06/23/16 06/23/16 06:02 06:05 07:00 WBC 12.9 H RBC 3.16 L Hgb 9.4 L Hct 28.1 L MCV 88.9 MCH 29.7 MCHC 33.5 RDW 14.5 Plt Count 183 MPV 11.2 H Gran % 88.0 H Lymph % (Auto) 6.8 L [place] % (Auto) 5.1 Eos % (Auto) 0.0 L Baso % (Auto) 0.1 Gran # 11.34 H Lymph # 0.9 L [place] # 0.7 H Eos # 0.0 Baso # 0.01 Retic Count 1.84 H APTT pCO2 pO2 HCO3 ABG pH ABG Total CO2 ABG O2 Saturation ABG O2 Content ABG Base Excess ABG Hemoglobin ABG Carboxyhemoglobin POC ABG HHb (Measured) ABG Methemoglobin ABG O2 Capacity ABG Potassium Hgb O2 Saturation Sodium 144 Chloride 110 H Glucose Lactate Mechanical Rate FiO2 Tidal Volume PEEP Potassium 3.5 L Carbon Dioxide 23 Anion Gap 15 BUN 42 H Creatinine 1.9 H Est GFR ( Amer) 30 Est GFR (Non-Af Amer) 25 POC Glucose (mg/dL) 281 H Random Glucose 260 H Calcium 6.9 L* Iron TIBC % Saturation Total Bilirubin 0.4 AST 53 H ALT 45 Alkaline Phosphatase 99 Troponin I 25.50 H* Total Protein 5.7 L Albumin 2.6 L Globulin 3.2 Albumin/Globulin Ratio 0.8 L Arterial Blood Potassium 06/23/16 06/23/16 06/23/16 08:49 10:07 12:53 WBC RBC Hgb Hct MCV MCH MCHC RDW Plt Count MPV Gran % Lymph % (Auto) [place] % (Auto) Eos % (Auto) Baso % (Auto) Gran # Lymph # [place] # Eos # Baso # Retic Count APTT pCO2 pO2 HCO3 ABG pH ABG Total CO2 ABG O2 Saturation ABG O2 Content ABG Base Excess ABG Hemoglobin ABG Carboxyhemoglobin POC ABG HHb (Measured) ABG Methemoglobin ABG O2 Capacity ABG Potassium Hgb O2 Saturation Sodium Chloride Glucose Lactate Mechanical Rate FiO2 Tidal Volume PEEP Potassium Carbon Dioxide Anion Gap BUN Creatinine Est GFR ( Amer) Est GFR (Non-Af Amer) POC Glucose (mg/dL) 284 H 274 H Random Glucose Calcium Iron 10 L TIBC 185 L % Saturation 6 L Total Bilirubin AST ALT Alkaline Phosphatase Troponin I Total Protein Albumin Globulin Albumin/Globulin Ratio Arterial Blood Potassium 06/23/16 06/23/16 13:32 15:42 WBC RBC Hgb Hct MCV MCH MCHC RDW Plt Count MPV Gran % Lymph % (Auto) [place] % (Auto) Eos % (Auto) Baso % (Auto) Gran # Lymph # [place] # Eos # Baso # Retic Count APTT pCO2 pO2 HCO3 ABG pH ABG Total CO2 ABG O2 Saturation ABG O2 Content ABG Base Excess ABG Hemoglobin ABG Carboxyhemoglobin POC ABG HHb (Measured) ABG Methemoglobin ABG O2 Capacity ABG Potassium Hgb O2 Saturation Sodium Chloride Glucose Lactate Mechanical Rate FiO2 Tidal Volume PEEP Potassium Carbon Dioxide Anion Gap BUN Creatinine Est GFR ( Amer) Est GFR (Non-Af Amer) POC Glucose (mg/dL) 263 H 287 H Random Glucose Calcium Iron TIBC % Saturation Total Bilirubin AST ALT Alkaline Phosphatase Troponin I Total Protein Albumin Globulin Albumin/Globulin Ratio Arterial Blood Potassium Critical Care Progress Note - Nutrition Nutrition: Nutrition Category Date Time Status NPO Diet [DIET] Diets 06/21/16 Lunch Ordered Addendum Addendum: 06/23/16 16:07 patient was seen, examined and discussed with Dr. Koehler shoulder to shoulder at bedside. Her note reflects my exam, assessment and plan, except as below. 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 IPPV and inotropic support is provided at present time. Had lengthy conversation with patient's family--they want to proceed with terminal extubation today. ccm time 40 min
--- NOTE | 2016-06-23 09:30 | PN ---
DATE: 06/23/2016 SUBJECTIVE: The patient remains on the ventilator. She is not sedated at the present time (discussed with nurse). She is very minimally responsive to stimuli. PHYSICAL EXAMINATION: VITAL SIGNS: Temperature is 99.1, pulse 108, respirations 34/24, blood pressure 170/80. HEENT: Normocephalic, atraumatic. NECK: Positive JVD. CARDIOVASCULAR: Systolic ejection murmur at the lower left sternal border. Positive S3 gallop. LUNGS: Crackles at both lower lobes. Minimal bilateral rhonchi. No wheezing. EXTREMITIES: Mild edema. No cyanosis, no clubbing. GASTROINTESTINAL: Abdomen is soft, nondistended. Bowel sounds are positive. SKIN: No acute rash. NEUROLOGIC: Limited at the present time. PERTINENT LABORATORY DATA: Chest x-ray was done this morning and reviewed. There are worsening bilateral pulmonary infiltrates noted. Arterial blood gas was done on assist control 24, tidal volume 350, FiO2 50%. Results are: pH 7.42, pCO2 of 32, pO2 of 87. IMPRESSION: 1. Respiratory failure. 2. Status post cardiopulmonary resuscitation. 3. Acute congestive heart failure. 4. Acute myocardial infarction. 5. Pneumonia, rule out aspiration. 6. History of coronary artery disease. 7. Chronic obstructive pulmonary disease. 8. Diabetes mellitus. 9. Encephalopathy. PLAN: The patient remains on the ventilator. She is not sedated at the present time (discussed with nurse). She is minimally responsive to stimuli. I did discuss the case with the night nurse at length. The night nurse confirmed that the patient is not doing well at all. I have also reviewed the above chest x-ray. The chest x-ray this morning is worse -- with increased bilateral pulmonary infiltrates. The patient is now on a dobutamine drip and has received several doses of Lasix. I have also reviewed the arterial blood gas. A significant alveolar arterial gradient remains. I would continue with the antibiotic coverage as per infectious disease. Input by Dr. Mata is noted. Temperatures are resolving. Unfortunately, the overall status/ prognosis of this patient remains very poor. The patient is for possible terminal extubation later this morning. I will discuss the above with the entire ICU team in the next few moments. I will also discuss the above with Dr. Wheeler later this morning. Mandeep Nixon MD cc: [phone] TT: 06/23/2016 09:30:31 Confirmation # [id number] Dictation # [id number] jn [email or web address]
--- NOTE | 2016-06-23 09:31 | RAD ---
HISTORY: f/u COMPARISON: Comparison is made to the previous study dated 06/22/2016 FINDINGS: LUNGS: Persistent heterogeneous diffuse opacities in the lungs. The ET tube is seen at appropriate position. PLEURA: No significant pleural effusion identified, no pneumothorax apparent. CARDIOVASCULAR: Normal. Cardiac silhouette is not enlarged. OSSEOUS STRUCTURES: No significant abnormalities. VISUALIZED UPPER ABDOMEN: The NG tube seen extending to the abdomen. OTHER FINDINGS: None. IMPRESSION: Persistent diffuse heterogeneous opacities in the lungs slightly improved in the right upper lung compared to the previous exam. Otherwise no significant interval change.
[2016-06-23] MEDS: levETIRAcetam 500mg IVPB 100 ML IV SCH ×2 (10:07→21:34)
--- NOTE | 2016-06-23 10:33 | PN ---
DATE: 06/23/2016 SUBJECTIVE: The patient is lying on the bed on a ventilator in mild respiratory distress. PHYSICAL EXAMINATION: VITAL SIGNS: Her blood pressure is 170/80, heart rate is 108 per minute. She is breathing at a rate of 32 per minute. Temperature is 99.1 degrees Fahrenheit. HEENT: Normocephalic, atraumatic. NECK: Supple. There are no carotid bruits. LUNGS: Clear with shallow breathing. ABDOMEN: Soft, nontender with minimal bowel sounds. NEUROLOGIC EXAMINATION: MENTAL STATUS: The patient opens eyes but non-purposeful, does not follow any commands. CRANIAL NERVES: Pupils 2 mm, reactive to light. Positive doll's eye. Positive corneal. There is m inimal gag reflex. MOTOR: Tone is decreased in all 4 extremities. There is no withdrawal of extremities to noxious ashley nful stimuli. Plantars no response. LABORATORY DATA: Labs reviewed, shows WBC of 12.9, hemoglobin 9.4, hematocrit of 28.1, and platelets of 183. Sodium is 144, potassium 3.5, chloride 110, carbon dioxide content 23, BUN of 42, creatinin e of 1.9 and glucose of 260. IMPRESSION: 1. Hypoxic encephalopathy status post cardiac arrest. 2. Status post seizures. 3. Respiratory failure. RECOMMENDATIONS: 1. The patient has shown no sign of meaningful improvement in neurologic status. 2. The patient to be continued on Keppra. 3. The patient had no further seizure. 4. The patient's prognosis for meaningful survival is poor. 5. The patient's family is looking for terminal extubation. 6. Please continue supportive care. Thank you for the opportunity to participate in the care of this patient. Valerie Guerra MD cc: [id number] TT: 06/23/2016 10:32:51 Confirmation # [id number] Dictation # [id number] rosaura
[2016-06-23 10:58] LABS: RETIC% 1.84 % (0.5-1.5)
--- NOTE | 2016-06-23 11:28 | PN ---
DATE: 06/23/2016 The patient remains on a ventilator with minimal neurologic function. PHYSICAL EXAMINATION: VITAL SIGNS: Blood pressure is 170/80, the heart rate is in the 90s. NECK: Negative JVD. LUNGS: Decreased breath sounds. HEART: Reveals S1, S2. EXTREMITIES: Without edema. LABORATORIES: Reviewed. IMPRESSION: 1. Anoxic encephalopathy. 2. Status post cardiopulmonary arrest. 3. Renal insufficiency. 4. Non-ST elevation myocardial infarction. 5. Coronary artery disease. Given these findings, the patient's neurologic prognosis is poor. The family is now requesting termi nal extubation. We will continue supportive care until such time. We will sign off the case today. Parish Urias MD cc: [id number] TT: 06/23/2016 11:27:10 Confirmation # [id number] Dictation # [id number] en
[2016-06-23] MEDS ORDERED: Insulin Lispro (humaLOG) MEDIUM Coverage SC SCH (11:30)
--- NOTE | 2016-06-23 13:03 | CP.PCM.PN ---
Subjective - Date & Time of Evaluation Date of Evaluation: 06/23/16 Time of Evaluation: 11:00 - Subjective Subjective: PGY-1 Medicine progress note. Patient seen and examined at bedside in the ICU. Patient is intubated with vent PRVC settings of FIO2 50%, PEEP 10, rate 24, tidal vol 350. However she is over breathing the vent. Patient had failed bipap trial yesterday. Patient is no not sedated to evaluate neurological function. Patient continues to have low grade fevers overnight. 1500 cc urinary output over 24 hours. Patient is on dobutamine and heparin drip. Patient is minimally responsive to painful stimuli. Per nurse possible terminal extubation. Objective - Vital Signs/Intake and Output Vital Signs (last 24 hours): Temp Pulse Resp BP Pulse Ox 99.1 F 108 H 30 H 170/80 H 98 06/23/16 05:00 06/23/16 05:00 06/23/16 08:00 06/23/16 05:00 06/23/16 08:00 Intake and Output: 06/23/16 06/23/16 06:59 18:59 Intake Total 1030 Output Total 850 Balance 180 - Medications Medications: Current Medications Acetaminophen (Tylenol 650 Mg Supp) 650 mg RC Q4H PRN PRN Reason: Fever >100.4 F Last Admin: 06/22/16 06:00 Dose: 650 mg Aspirin (Ecotrin) 81 mg PO DAILY [facility] Last Admin: 06/23/16 10:06 Dose: 81 mg Atorvastatin Calcium (Lipitor) 20 mg PO DIN [facility] Last Admin: 06/22/16 17:17 Dose: 20 mg Clopidogrel Bisulfate (Plavix) 75 mg PO DAILY [facility] Last Admin: 06/23/16 10:06 Dose: 75 mg Norepinephrine Bitartrate 4 mg (/ Dextrose) 254 mls @ 15.24 mls/hr IV .[id number] PRN; Protocol; 4 MCG/MIN PRN Reason: TITRATE PER MD ORDER Last Titration: 06/20/16 07:00 Dose: 0 mcg/min Dexmedetomidine HCl (Precedex 4 Mcg/Ml (100 Ml)) 100 mls @ 4.15 mls/hr IV .Q24H PRN; Protocol; 0.2 MCG/KG/HR PRN Reason: Agitation Last Titration: 06/22/16 03:55 Dose: 0.3 mcg/kg/hr Heparin Sodium/Sodium Chloride (Heparin 77567 Units/250ml 1/2 Normal Saline) 250 mls @ 9.961 mls/hr IV .Q24H MICHAEL; 12 UNITS/KG/HR PRN Reason: Protocol Last Admin: 06/23/16 05:01 Dose: 10 mls/hr Levetiracetam (Keppra 500mg Ivpb) 100 mls @ 400 mls/hr IV Q12 MICHAEL Last Admin: 06/23/16 10:07 Dose: 400 mls/hr Doxycycline Hyclate 100 mg/ (Sodium Chloride) 100 mls @ 100 mls/hr IVPB Q12 MICHAEL PRN Reason: Protocol Last Admin: 06/23/16 10:08 Dose: 100 mls/hr Aztreonam (Azactam 1 Gm) 100 mls @ 100 mls/hr IVPB Q8 MICHAEL PRN Reason: Protocol Stop: 06/27/16 14:46 Last Admin: 06/23/16 05:02 Dose: 100 mls/hr Acetaminophen (Ofirmev) 100 mls @ 400 mls/hr IVPB Q6H PRN PRN Reason: Fever >100.4 F Stop: 06/24/16 15:38 Last Admin: 06/22/16 20:29 Dose: 400 mls/hr Dobutamine HCl/Dextrose (Dobutamine/Dextrose 5% 500mg/250ml) 250 mls @ 12.664 mls/hr IV .[id number] PRN; Protocol; 5 MCG/KG/MIN PRN Reason: TITRATE PER PROTOCOL Last Admin: 06/23/16 10:40 Dose: 12.778 mls/hr Insulin Human Lispro (Humalog High) 0 units SC Q2 MICHAEL PRN Reason: Protocol Metoprolol Tartrate (Lopressor) 5 mg IVP Q6 PRN PRN Reason: HR > 100 Last Admin: 06/23/16 02:20 Dose: 5 mg Pantoprazole Sodium (Protonix Inj) 40 mg IVP DAILY MICHAEL Last Admin: 06/23/16 10:06 Dose: 40 mg - Labs Labs: 06/23/16 06:05 06/23/16 06:05 PT 11.6 Seconds (9.9-11.8) 06/19/16 13:30 INR 1.07 (0.93-1.08) 06/19/16 13:30 APTT 57.8 Seconds (23.7-30.8) H 06/22/16 23:00 - Head Exam Head Exam: ATRAUMATIC, NORMOCEPHALIC - Eye Exam Eye Exam: PERRL - ENT Exam ENT Exam: Mucous Membranes Dry - Respiratory Exam Respiratory Exam: Clear to Ausculation Bilateral. absent: Rales, Rhonchi, Wheezes, NORMAL BREATHING PATTERN Additional comments: Patient is intubated - Cardiovascular Exam Cardiovascular Exam: REGULAR RHYTHM. absent: Tachycardia, Murmur - GI/Abdominal Exam GI & Abdominal Exam: Soft, Normal Bowel Sounds. absent: Distended, Firm, Guarding, Tenderness - Extremities Exam Extremities Exam: absent: Normal Inspection - Neurological Exam Additional comments: GCS;3, patient is off sedation, no purposeful movements, no response to pain. - Skin Skin Exam: Dry, Intact, Normal Color, Warm Assessment and Plan - Assessment and Plan (Free Text) Assessment: 85yo female with PMH of DM, HTN, bronchitis present with anoxic brain injury 2/ 2 cardiac arrest s/p cardiogenic shock, hypoxemic respiratory failure with metabolic acidosis. Patient is intubated. Cardiac cath was unsuccessful for PTCA of 95% proximal circumflex, and 50% mid left LAD. Continue ICU management. Plan: 1. Anoxic brain injury secondary to cardiac arrest and cardiogenic shock - no meaningful movement - patient currently on dobutamine - Head CT - generalized atrophy; nonspecific white matter changes; limited study (please see full report) - Neurologist, Dr. Shania Guerra following - EEG was abnormal, severe bihemispheric cerebral dysfunction, no epileptiform - cont keppra - possible terminal extubation 2. Hypoxemic Respiratory Failure with metabolic acidosis s/p - Intubated, ventilator depended respiratory failure - patiet is over breathing the vent - failed pressure support trial yesterday - CXR-extensive interstitial prominence predominantly within the upper lobes R>L - received lasix to reduce pulmonary edema - Lower extremity venous duplex- negative - abx aztreonam, clindamycin, doxycycline - pulm, Dr. Nixon is following 3. NSTEMI: - EKG - inferolateral ST depressions - Troponin trending down, latest trops ws 25.5 - Pro-BNP was 4190 - Platform Builder, Dr. Urias, following - cont Heparin drip - patient went to cardiac cath; unsuccessful for PTCA of 95% proximal circumflex , and 50% mid left LAD - hold transfer to [facility] for further evaluation of mental status 4. Sepsis 2/2 UTI and aspiration PNA - Lactate 6.9 - leukocytosis of 12.9 today - procalcitonin was elevated, 83.98 - urine cultures positive- klebsiella pneumoniae and aerococcus viridans - blood cultures negative - sputum cultures negative - CXR: extensive interstitial prominence predominantly within the upper lobes reflects R>L - currently on aztreonam, doxycycline - IVF restriction due to CHF, on 04/04 NS @50 - ID, Dr. Mata following 5. elevated LFTs - most likely secondary to cardiac arrest - downtrending - Hepatitis serologies are negative - abd US -cholelithiasis, no cholecysitis, no obstruction. Hepatomegaly/hepatic steatosis - GI following 6. Anemia - hgb downtrending - Iron studies are low - will consult Dr. Trimble - cont to monitor 7. hyperglycemia - started levemir 5 units HS - on ISSS med - H/O DM - cont to monitor 9. Prophylactic Measures: GI: Protonix 40 mg IV qd DVT: Heparin drip
--- NOTE | 2016-06-23 13:36 | CP.PCM.PN ---
Subjective - Date & Time of Evaluation Date of Evaluation: 06/23/16 Time of Evaluation: 08:50 - Subjective Subjective: Continues to be on the ventilator. Still having low grade fevers overnight. Objective - Vital Signs/Intake and Output Vital Signs (last 24 hours): Temp Pulse Resp BP Pulse Ox 99.1 F 108 H 34 H 170/80 H 97 06/23/16 05:00 06/23/16 05:00 06/23/16 05:00 06/23/16 05:00 06/23/16 05:00 Intake and Output: 06/22/16 06/23/16 18:59 06:59 Intake Total 918 1030 Output Total 650 850 Balance 268 180 - Medications Medications: Current Medications Acetaminophen (Tylenol 650 Mg Supp) 650 mg RC Q4H PRN PRN Reason: Fever >100.4 F Last Admin: 06/22/16 06:00 Dose: 650 mg Aspirin (Ecotrin) 81 mg PO DAILY [facility] Last Admin: 06/22/16 09:50 Dose: 81 mg Atorvastatin Calcium (Lipitor) 20 mg PO DIN [facility] Last Admin: 06/22/16 17:17 Dose: 20 mg Clopidogrel Bisulfate (Plavix) 75 mg PO DAILY [facility] Last Admin: 06/22/16 09:51 Dose: 75 mg Norepinephrine Bitartrate 4 mg (/ Dextrose) 254 mls @ 15.24 mls/hr IV .[id number] PRN; Protocol; 4 MCG/MIN PRN Reason: TITRATE PER MD ORDER Last Titration: 06/20/16 07:00 Dose: 0 mcg/min Dexmedetomidine HCl (Precedex 4 Mcg/Ml (100 Ml)) 100 mls @ 4.15 mls/hr IV .Q24H PRN; Protocol; 0.2 MCG/KG/HR PRN Reason: Agitation Last Titration: 06/22/16 03:55 Dose: 0.3 mcg/kg/hr Heparin Sodium/Sodium Chloride (Heparin 16073 Units/250ml 1/2 Normal Saline) 250 mls @ 9.961 mls/hr IV .Q24H MICHAEL; 12 UNITS/KG/HR PRN Reason: Protocol Last Admin: 06/23/16 05:01 Dose: 10 mls/hr Levetiracetam (Keppra 500mg Ivpb) 100 mls @ 400 mls/hr IV Q12 MICHAEL Last Admin: 06/22/16 21:39 Dose: 400 mls/hr Doxycycline Hyclate 100 mg/ (Sodium Chloride) 100 mls @ 100 mls/hr IVPB Q12 MICHAEL PRN Reason: Protocol Last Admin: 06/22/16 21:58 Dose: 100 mls/hr Aztreonam (Azactam 1 Gm) 100 mls @ 100 mls/hr IVPB Q8 MICHAEL PRN Reason: Protocol Stop: 06/27/16 14:46 Last Admin: 06/23/16 05:02 Dose: 100 mls/hr Insulin Human Regular 100 (units/ Sodium Chloride) 100 mls @ 4 mls/hr IV .Q24H PRN; Protocol; 4 UNITS/HR PRN Reason: TITRATE PER MD ORDER Last Titration: 06/21/16 22:20 Dose: 0 units/hr Acetaminophen (Ofirmev) 100 mls @ 400 mls/hr IVPB Q6H PRN PRN Reason: Fever >100.4 F Stop: 06/24/16 15:38 Last Admin: 06/22/16 20:29 Dose: 400 mls/hr Dobutamine HCl/Dextrose (Dobutamine/Dextrose 5% 500mg/250ml) 250 mls @ 12.664 mls/hr IV .[id number] PRN; Protocol; 5 MCG/KG/MIN PRN Reason: TITRATE PER PROTOCOL Last Admin: 06/23/16 04:35 Dose: 12.664 mls/hr Insulin Human Lispro (Humalog Low) 0 units SC Q2 MICHAEL PRN Reason: Protocol Last Admin: 06/23/16 04:36 Dose: 2 units Metoprolol Tartrate (Lopressor) 5 mg IVP Q6 PRN PRN Reason: HR > 100 Last Admin: 06/23/16 02:20 Dose: 5 mg Pantoprazole Sodium (Protonix Inj) 40 mg IVP DAILY [facility] Last Admin: 06/22/16 09:52 Dose: 40 mg - Labs Labs: 06/23/16 06:05 06/22/16 06:00 PT 11.6 Seconds (9.9-11.8) 06/19/16 13:30 INR 1.07 (0.93-1.08) 06/19/16 13:30 APTT 57.8 Seconds (23.7-30.8) H 06/22/16 23:00 - Constitutional Appears: Other (Intubated, poorly responsive) - Head Exam Head Exam: NORMAL INSPECTION - Neck Exam Neck Exam: absent: Lymphadenopathy, Meningismus Additional comments: ET tube in place - Cardiovascular Exam Cardiovascular Exam: +S1, +S2 - GI/Abdominal Exam GI & Abdominal Exam: Soft. absent: Tenderness Assessment and Plan - Assessment and Plan (Free Text) Plan: Assessment consider severe sepsis with acute hypoxic encephalopathy secondary to aspiration pneumonitis as well; R/O UTI with Klebsiella, in patient also with congestive heart failure Acute renal failure HTN DM obesity with BMI 33 Plan continue Azactam (because of concern for seizures), and continue intermittent IV Vancomycin (day 4 - will give a dose tomorrow); PCT is elevated; reviewed CXR ; reviewed Dr. Nixon's evaluation as well we have discontinued Clindamycin If the patient continues to have fever, will repeat septic work up Overally prognosis is poor
[2016-06-23] MEDS: Dexmedetomidine HCl 4mcg/ml 100 ML IV PRN (13:38)
[2016-06-23 14:12] LABS: IRON 10 ug/dL (45-180)
[2016-06-23] MEDS: Insulin Lispro (HUMAlog) HIGH Coverage SC SCH ×3 (14:26→20:35)
[2016-06-23 18:11] LABS: FOLATE 10.1 ng/mL
[2016-06-23] MEDS ORDERED: Morphine PCA 1 mg/ml (25ml) 25 ML IV PRN (20:41)
[2016-06-23] MEDS ORDERED: Morphine 4 mg/ml ISec IVP STA (20:41)
--- NOTE | 2016-06-23 20:41 | CP.PCM.PCO ---
Physician Communication Note - Physician Communication Note Physician Communication Note: POA has decided to make pt DNR/DNI and terminally extubate
[2016-06-23] MEDS ORDERED: Dextrose 50% SYRINGE Inj (50 ml) ONE (21:56)
--- NOTE | 2016-06-23 22:30 | CP.PCM.PRO ---
Pronouncement of Note - Clinical Findings Physical Exam: No Response Verbal/Painful Stimuli, Absent Peripheral Pulses{ Carotid & Femoral}, Absent Heart & Breath Sounds, No Pupillary Light Reflex, No Corneal Reflex, Pupils Fixed & Dilated, Absence of Vital Signs - Pronouncement Time Time of Pronouncement of : 22:00 - Notifications Pronouncement Notifications: Family Notified C.O.D. Audit Clerk Notified: No - Autopsy Autopsy Requested: No - [place]: [id number] Additional Comments: With family's permission, patient was terminally extubated this evening. Family was at bedside during pronounciation of .
[2016-06-23 23:01] VITALS: BP 119/71; PULSE 90; RESP 84; TEMP 100.2; O2SAT 100
[2016-06-24 01:12] LABS: TOTAL PROTEIN, SERUM 4.8 g/dL (6.1-8.1)
--- NOTE | 2016-06-24 09:57 | CP.PCM.DIS ---
Provider - Provider Date of Admission: 06/19/16 14:37 Attending physician: Octavio Wheeler MD Hospital Course - Lab Results Lab Results: Micro Results 06/22/16 08:30 Blood-Venous Blood Culture - Preliminary NO GROWTH AFTER 48 HOURS 06/22/16 08:00 Blood-Venous Blood Culture - Preliminary NO GROWTH AFTER 48 HOURS 06/19/16 16:30 Blood Blood Culture - Preliminary NO GROWTH AFTER 4 DAYS 06/22/16 10:40 Urine,Menezes Urine Culture - Final No Growth (<1,000 CFU/ML) 06/19/16 17:00 Sputum Gram Stain - Final 06/19/16 17:00 Sputum Sputum Culture - Final NORMAL ORAL MARY ALICE 06/19/16 15:30 Naris MRSA Culture (Admit) - Final MRSA NOT DETECTED Most Recent Lab Values WBC 12.9 10^3/ul (4.5-11.0) H 06/23/16 06:05 RBC 3.16 10^6/uL (3.5-6.1) L 06/23/16 06:05 Hgb 9.4 gm/dL (12.0-16.0) L 06/23/16 06:05 Hct 28.1 % (36.0-48.0) L 06/23/16 06:05 MCV 88.9 fL (80.0-105.0) 06/23/16 06:05 MCH 29.7 pg (25.0-35.0) 06/23/16 06:05 MCHC 33.5 g/dl (31.0-37.0) 06/23/16 06:05 RDW 14.5 % (11.5-14.5) 06/23/16 06:05 Plt Count 183 10^3/uL (120.0-450.0) 06/23/16 06:05 MPV 11.2 fl (7.0-11.0) H 06/23/16 06:05 Gran % 88.0 % (50.0-68.0) H 06/23/16 06:05 Lymph % (Auto) 6.8 % (22.0-35.0) L 06/23/16 06:05 [place] % (Auto) 5.1 % (1.0-6.0) 06/23/16 06:05 Eos % (Auto) 0.0 % (1.5-5.0) L 06/23/16 06:05 Baso % (Auto) 0.1 % (0.0-3.0) 06/23/16 06:05 Gran # 11.34 (1.4-6.5) H 06/23/16 06:05 Lymph # 0.9 (1.2-3.4) L 06/23/16 06:05 [place] # 0.7 (0.1-0.6) H 06/23/16 06:05 Eos # 0.0 (0.0-0.7) 06/23/16 06:05 Baso # 0.01 K/mm3 (0.0-2.0) 06/23/16 06:05 Retic Count 1.84 % (0.5-1.5) H 06/23/16 07:00 PT 11.6 Seconds (9.9-11.8) 06/19/16 13:30 INR 1.07 (0.93-1.08) 06/19/16 13:30 APTT 57.8 Seconds (23.7-30.8) H 06/22/16 23:00 pCO2 32 mm/Hg (35-45) L 06/23/16 05:20 pO2 87.0 mm/Hg (80-100) 06/23/16 05:20 HCO3 20.8 mmol/L (21-28) L 06/23/16 05:20 ABG pH 7.42 (7.35-7.45) 06/23/16 05:20 ABG Total CO2 21.8 mmol.L (22-28) L 06/23/16 05:20 ABG O2 Saturation 98.4 % (95-98) H 06/23/16 05:20 ABG O2 Content 12.1 ML/dl (15-23) L 06/23/16 05:20 ABG Base Excess -3.1 mmol/L (-2.0-3.0) L 06/23/16 05:20 ABG Hemoglobin 8.9 g/dL (11.7-17.4) L 06/23/16 05:20 ABG Carboxyhemoglobin 2.0 % (0.5-1.5) H 06/23/16 05:20 POC ABG HHb (Measured) 1.6 % (0-5) 06/23/16 05:20 ABG Methemoglobin 0.9 % (0.0-3.0) 06/23/16 05:20 ABG O2 Capacity 12.3 mL/dl (16-24) L 06/23/16 05:20 ABG Potassium 3.9 mmol/L (3.6-5.2) 06/22/16 15:57 VBG pH 7.29 (7.32-7.43) L 06/19/16 21:30 VBG pCO2 47.0 (40-60) 06/19/16 21:30 VBG HCO3 22.6 mmol/l (21-28) 06/19/16 21:30 VBG Total CO2 24.0 mmol.L (22-28) 06/19/16 21:30 VBG O2 Sat (Calc) 44.5 % (40-65) 06/19/16 21:30 VBG Base Excess -4.2 mmol/L (0.0-2.0) L 06/19/16 21:30 VBG Potassium 4.6 mmol/L (3.6-5.2) 06/19/16 21:30 Hgb O2 Saturation 95.5 % (95.0-98.0) 06/23/16 05:20 Sodium 143.0 mmol/L (132-148) 06/22/16 15:57 Chloride 114.0 mmol/L (98-107) H 06/22/16 15:57 Glucose 208 mg/dl (65-105) H 06/22/16 15:57 Lactate 1.6 mmol/L (0.7-2.1) 06/22/16 15:57 Mechanical Rate 24 06/22/16 15:57 FiO2 50.0 % 06/23/16 05:20 Tidal Volume 350 06/22/16 15:57 PEEP 15 06/22/16 15:57 Sodium 144 mmol/L (132-148) 06/23/16 06:05 Potassium 3.5 mmol/L (3.6-5.0) L 06/23/16 06:05 Chloride 110 mmol/L (98-107) H 06/23/16 06:05 Carbon Dioxide 23 mmol/L (21-33) 06/23/16 06:05 Anion Gap 15 (10-20) 06/23/16 06:05 BUN 42 mg/dL (7-21) H 06/23/16 06:05 Creatinine 1.9 mg/dL (0.5-1.4) H 06/23/16 06:05 Est GFR ( Amer) 30 06/23/16 06:05 Est GFR (Non-Af Amer) 25 06/23/16 06:05 POC Glucose (mg/dL) 245 mg/dL (65-110) H 06/23/16 18:09 Random Glucose 260 mg/dL (70-110) H 06/23/16 06:05 Hemoglobin A1c 7.7 % (4.2-6.5) H 06/20/16 05:45 Calcium 6.9 mg/dL (8.4-10.5) L* 06/23/16 06:05 Phosphorus 4.3 mg/dL (2.5-4.5) 06/22/16 06:00 Magnesium 1.2 mg/dL (1.7-2.2) L 06/22/16 06:00 Iron 10 ug/dL (45-180) L 06/23/16 12:53 TIBC 185 ug/dL (265-497) L 06/23/16 12:53 % Saturation 6 % (20-55) L 06/23/16 12:53 Ferritin 152.0 ng/mL 06/23/16 10:59 Total Bilirubin 0.4 mg/dL (0.2-1.3) 06/23/16 06:05 AST 53 U/L (15-39) H 06/23/16 06:05 ALT 45 U/L (7-56) 06/23/16 06:05 Alkaline Phosphatase 99 U/L (38-133) 06/23/16 06:05 Lactate Dehydrogenase 655 U/L (333-699) 06/19/16 13:30 Total Creatine Kinase 47 U/L (35-230) 06/19/16 13:30 Troponin I 25.50 ng/mL H* 06/23/16 06:05 NT-Pro-B Natriuret Pep 4190 pg/mL (0-450) H 06/19/16 13:30 Total Protein 5.7 g/dL (5.8-8.3) L 06/23/16 06:05 Total Protein (PEP) 4.8 g/dL (6.1-8.1) L 06/23/16 12:53 Albumin 2.6 g/dL (3.0-4.8) L 06/23/16 06:05 Globulin 3.2 gm/dL 06/23/16 06:05 Albumin/Globulin Ratio 0.8 (1.1-1.8) L 06/23/16 06:05 Vitamin B12 859 pg/mL (239-931) 06/23/16 10:59 Folate 10.1 ng/mL 06/23/16 10:59 Procalcitonin 59.96 NG/ML (0.19-0.49) H 06/22/16 06:30 Arterial Blood Potassium 3.9 mmol/L (3.6-5.2) 06/22/16 15:57 Venous Blood Potassium 4.6 mmol/L (3.6-5.2) 06/19/16 21:30 Urine Color Yellow (YELLOW) 06/22/16 10:40 Urine Appearance Sl cloudy (CLEAR) 06/22/16 10:40 Urine pH 6.0 (4.7-8.0) 06/22/16 10:40 Ur Specific [place] >= 1.030 (1.005-1.035) 06/22/16 10:40 Urine Protein 30 mg/dL (<30 mg/dL) H 06/22/16 10:40 Urine Glucose (UA) Negative mg/dL (NEGATIVE) 06/22/16 10:40 Urine Ketones Negative mg/dL (NEGATIVE) 06/22/16 10:40 Urine Blood Moderate (NEGATIVE) H 06/22/16 10:40 Urine Nitrate Negative (NEGATIVE) 06/22/16 10:40 Urine Bilirubin Negative (NEGATIVE) 06/22/16 10:40 Urine Urobilinogen 0.2 E.U./dL (<1 E.U./dL) 06/22/16 10:40 Ur Leukocyte Esterase Small Oz/uL (NEGATIVE) H 06/22/16 10:40 Urine RBC 0 - 2 /hpf (0-2) 06/22/16 10:40 Urine WBC 1 - 3 /hpf (0-6) 06/22/16 10:40 Ur Epithelial Cells 1 - 3 /hpf (0-5) 06/19/16 14:16 Amorphous Sediment Small 06/19/16 14:16 Urine Bacteria Few (NEG) 06/22/16 10:40 Coarse Granular Casts Trace /hpf (0-2) H 06/22/16 10:40 Hepatitis A IgM Ab Negative (NEGATIVE) 06/21/16 06:15 Hep Bs Antigen Negative (NEGATIVE) 06/21/16 06:15 Hep B Core IgM Ab Negative (NEGATIVE) 06/21/16 06:15 Hepatitis C Antibody Negative (NEGATIVE) 06/21/16 06:15 Discharge Exam - Head Exam Head Exam: ATRAUMATIC, NORMOCEPHALIC - Eye Exam Eye Exam: PERRL - ENT Exam ENT Exam: Mucous Membranes Dry - Respiratory Exam Respiratory Exam: Clear to PA & Lateral. absent: Rales, Rhonchi, Wheezes, Respiratory Distress Additional comments: intubated, mild respiratory distress - Cardiovascular Exam Cardiovascular Exam: REGULAR RHYTHM. absent: Tachycardia, Diastolic murmur, Systolic Murmur - GI/Abdominal Exam GI & Abdominal Exam: Normal Bowel Sounds, Unremarkable. absent: Distended, Firm , Guarding, Soft, Tenderness - Extremities Exam Extremities exam: normal inspection - Neurological Exam Additional comments: No meaningful movement, no response to pain - Skin Skin Exam: Dry, Intact, Normal Color, Warm Discharge Plan - Follow Up Plan Condition: CRITICAL Disposition: WITH WITHOUT AUTOPSY
== END 2016-06-23 22:00 | DRG 871 ==
LOC: ED 13:20 → ERH 14:37 → CCU 15:25
PROVIDERS: ADMIT Internal Medicine; ATTEND Internal Medicine
PROC: 5A1945Z Respiratory Ventilation, 24-96 Consecutive Hours (ICD-10-PCS; principal; 2016-06-19)
PROC: 4A023N7 Measurement of Cardiac Sampling and Pressure, Left Heart, Percutaneous Approach (ICD-10-PCS; 2016-06-20)
PROC: B211YZZ Fluoroscopy of Multiple Coronary Arteries using Other Contrast (ICD-10-PCS; 2016-06-20)
PROC: B215YZZ Fluoroscopy of Left Heart using Other Contrast (ICD-10-PCS; 2016-06-20)
PROC: 3E033PZ Introduction of Platelet Inhibitor into Peripheral Vein, Percutaneous Approach (ICD-10-PCS; 2016-06-20)
DX: A41.9 Sepsis, unspecified organism (principal); N39.0 Urinary tract infection, site not specified; J69.0 Pneumonitis due to inhalation of food and vomit; J96.01 Acute respiratory failure with hypoxia; I21.4 Non-ST elevation (NSTEMI) myocardial infarction; R57.0 Cardiogenic shock; I50.21 Acute systolic (congestive) heart failure; G93.1 Anoxic brain damage, not elsewhere classified; N17.9 Acute kidney failure, unspecified; E87.4 Mixed disorder of acid-base balance; I42.0 Dilated cardiomyopathy; J95.851 Ventilator associated pneumonia; Z99.11 Dependence on respirator [ventilator] status; R56.9 Unspecified convulsions; J44.9 Chronic obstructive pulmonary disease, unspecified; I25.10 Atherosclerotic heart disease of native coronary artery without angina pectoris; E11.65 Type 2 diabetes mellitus with hyperglycemia; K76.0 Fatty (change of) liver, not elsewhere classified; K80.20 Calculus of gallbladder without cholecystitis without obstruction; I25.5 Ischemic cardiomyopathy; I25.84 Coronary atherosclerosis due to calcified coronary lesion; I10 Essential (primary) hypertension; Z66 Do not resuscitate; Y84.8 Other medical procedures as the cause of abnormal reaction of the patient, or of later complication, without mention of misadventure at the time of the procedure; E66.9 Obesity, unspecified; Z68.33 Body mass index [BMI] 33.0-33.9, adult; Z95.5 Presence of coronary angioplasty implant and graft; Z87.891 Personal history of nicotine dependence; Z83.3 Family history of diabetes mellitus